=== PATIENT | female | born 1990 | race Caucasian/White ===

== ENCOUNTER 2017-04-15 23:03 | Emergency (ER) | payer BC ==
[~2017-04-15 23:03] MED LIST: ALBU90OI6 INH; ALPR.25 PO; ALPR.5 PO; AMOCLA875 PO; AMOX1XR PO; AMOX500 PO; ASCO1ER PO; Amoxicillin500 MG PO; Atarax10 MG GT; Ativan0.5 MG; CEPH500; CEPH500 PO; CETI10 PO; CODACE30 PO; DIPH50 PO; FISH1000 PO; FLUC150A PO; FLUT.05NI; HYDACE5 PO; HYDHCL25 PO; IBUP800; IBUP800 PO; LORA.5 PO; LORA1 PO; METO10 PO; MULVITMINE PO; MUPI2TO TOP; NASACORT AQ; Naprosyn500 MG PO; Norco 5-325 Ta1 EACH PO; OSEL75CA PO; OXYACE5T; PENVK500 PO; PRED20 PO; PREN-16 PO; PROCODE120 PO; Percocet 5-3251 EACH PO; RXCEPH500 PO; RXCODACET PO; RXLORA1 PO; RXPENVK250 PO; SERT25 PO; SERT50 PO; VITB100 PO
== END 2017-04-15 23:41 | disposition left against medical advice (07) ==
LOC: ER 23:03
DX: Z53.21 Procedure and treatment not carried out due to patient leaving prior to being seen by health care provider (principal)

== ENCOUNTER 2017-04-28 09:16 | Emergency (ER) | payer BC ==
[~2017-04-28] VITALS: Ht 162.6 cm; Wt 61.2 kg
[2017-04-28] MEDS ORDERED: AMOX875 PO (10:30)
== END 2017-04-28 10:50 | disposition home or self-care (01) ==
LOC: ER 09:16
DX: R10.9 Unspecified abdominal pain (principal); Z79.2 Long term (current) use of antibiotics
CPT/HCPCS: 81000; 99282

== ENCOUNTER → 2018-04-23 | Outpatient (CLI) | payer BC ==
[~2018-04-23] MED LIST changes: +AMOX875 PO
[2018-04-26 03:12] LABS: CHLAMYDIA TRACHOMATIS, NAA Negative (Negative); NEISSERIA GONORRHOEAE, NAA Negative (Negative)
== END | disposition home or self-care (01) ==
LOC: LAB EV 14:25 → LAB SHORT 14:25
PROVIDERS: Physician Assistant
DX: R10.2 Pelvic and perineal pain (principal)
CPT/HCPCS: 87070; 87205; 87491; 87591; G0145

== ENCOUNTER 2018-08-06 21:06 | Emergency (ER) | payer BC ==
[~2018-08-06] VITALS: Ht 162.6 cm; Wt 61.2 kg
[2018-08-06] MEDS ORDERED: IBUP600 PO (21:20)
[2018-08-06 21:55] LABS: BASOPHILS ABSOLUTE AUTO 0.04 K/mm3 (0.00-0.23); BASOPHILS PERCENT AUTO 0 % (0-2); EOSINOPHILS ABSOLUTE AUTO 0.15 K/mm3 (0.00-0.68); EOSINOPHILS PERCENT AUTO 1 % (0-6); Hematocrit 42.3 % (33.0-51.0); Hemoglobin 14.3 g/dL (11.5-16.0); IMMATURE GRAN ABSOLUTE AUTO 0.05 K/mm3 (0.00-0.10); IMMATURE GRAN PERCENT AUTO 0 % (0-1); LYMPHOCYTES ABSOLUTE AUTO 2.58 K/mm3 (0.84-5.20); LYMPHOCYTES PERCENT AUTO 21 % (21-46); MONOCYTES ABSOLUTE AUTO 1.16 K/mm3 (0.16-1.47); MONOCYTES PERCENT AUTO 10 % (4-13); Mean Corpuscular HGB 29.9 pg (26.0-34.0); Mean Corpuscular HGB Conc 33.8 g/dL (31.5-36.5); Mean Corpuscular Volume 88 fL (80-100); Mean Platelet Volume 9.8 fL (9.1-12.4); NEUTROPHILS ABSOLUTE AUTO 8.17 K/mm3 (1.96-9.15); NEUTROPHILS PERCENT AUTO 67 % (41-73); Platelet Count 296 K/mm3 (150-400); RDW Coefficient Variation 11.6 % (11.7-14.2); RDW Standard Deviation 37.3 fL (35.1-46.3); Red Blood Cell Count 4.79 M/mm3 (3.80-5.20); White Blood Cell Count 12.15 K/mm3 (4.00-11.30)
[2018-08-06 22:10] LABS: Anion Gap 7 mmol/L (6-16); Blood Urea Nitrogen 18 mg/dL (8-24); Bun/Creatinine Ratio 26.4 (12.0-20.0); CO2, Blood 25 mmol/L (21-32); Calcium, Blood 8.7 mg/dL (8.5-10.1); Chloride, Blood 110 mmol/L (98-108); Creatinine, Blood 0.68 mg/dL (0.40-1.00); Glomerular Filtration Rate >60 (60-); Glucose, Blood 69 mg/dL (70-99); Potassium, Blood 3.7 mmol/L (3.5-5.5); Sodium, Blood 142 mmol/L (136-145)
[2018-08-06] MEDS ORDERED: Miralax17 GM PO (22:50)
[2018-08-06] MEDS ORDERED: Colace100 MG PO (22:50)
== END 2018-08-06 23:30 | disposition home or self-care (01) ==
LOC: ER 21:06
PROVIDERS: Emergency Medicine
DX: K59.00 Constipation, unspecified (principal)
CPT/HCPCS: 74176; 80048; 85025; 99283-25

== ENCOUNTER 2018-10-07 12:36 | Emergency (ER) | payer BC ==
[~2018-10-07] VITALS: Ht 160 cm; Wt 59.0 kg
[~2018-10-07 12:36] MED LIST changes: +Colace100 MG PO; +IBUP600 PO; +Miralax17 GM PO
[2018-10-07 13:31] LABS: BASOPHILS ABSOLUTE AUTO 0.02 K/mm3 (0.00-0.23); BASOPHILS PERCENT AUTO 0 % (0-2); EOSINOPHILS ABSOLUTE AUTO 0.04 K/mm3 (0.00-0.68); EOSINOPHILS PERCENT AUTO 1 % (0-6); Hematocrit 43.6 % (33.0-51.0); Hemoglobin 15.2 g/dL (11.5-16.0); IMMATURE GRAN ABSOLUTE AUTO 0.02 K/mm3 (0.00-0.10); IMMATURE GRAN PERCENT AUTO 0 % (0-1); LYMPHOCYTES ABSOLUTE AUTO 1.88 K/mm3 (0.84-5.20); LYMPHOCYTES PERCENT AUTO 27 % (21-46); MONOCYTES ABSOLUTE AUTO 0.44 K/mm3 (0.16-1.47); MONOCYTES PERCENT AUTO 6 % (4-13); Mean Corpuscular HGB 30.8 pg (26.0-34.0); Mean Corpuscular HGB Conc 34.9 g/dL (31.5-36.5); Mean Corpuscular Volume 88 fL (80-100); Mean Platelet Volume 9.4 fL (9.1-12.4); NEUTROPHILS ABSOLUTE AUTO 4.69 K/mm3 (1.96-9.15); NEUTROPHILS PERCENT AUTO 66 % (41-73); Platelet Count 292 K/mm3 (150-400); RDW Coefficient Variation 11.8 % (11.7-14.2); Red Blood Cell Count 4.93 M/mm3 (3.80-5.20); White Blood Cell Count 7.09 K/mm3 (4.00-11.30)
[2018-10-07 13:55] LABS: Alanine Aminotransfer (ALT/SGP 23 U/L (12-78); Albumin, Blood 4.5 g/dL (3.4-5.0); Albumin/Globulin Ratio 1.2 (0.8-1.8); Alk Phos 82 U/L (50-136); Anion Gap 8 mmol/L (6-16); Aspartate Aminotrans (AST/SGOT 19 U/L (12-37); Bilirubin, Total 1.6 mg/dL (0.1-1.0); Blood Urea Nitrogen 12 mg/dL (8-24); Bun/Creatinine Ratio 21.5 (12.0-20.0); CO2, Blood 25 mmol/L (21-32); Calcium, Blood 9.2 mg/dL (8.5-10.1); Chloride, Blood 107 mmol/L (98-108); Creatinine, Blood 0.56 mg/dL (0.40-1.00); Globulin, Blood 3.7 g/dL (2.2-4.0); Glomerular Filtration Rate >60 (60-); Glucose, Blood 78 mg/dL (70-99); Potassium, Blood 3.8 mmol/L (3.5-5.5); Sodium, Blood 140 mmol/L (136-145); Total Protein, Blood 8.2 g/dL (6.4-8.2)
[2018-10-07 15:09] LABS: Source, Urine Clean Catch
[2018-10-07 15:11] LABS: Bilirubin, Urine Neg (Neg); Blood, Urine Neg (Neg); Glucose Qualitative, Urine Neg (Neg); Ketones, Urine Neg (Neg); Leukocyte Esterase, Urine Neg (Neg); Nitrite, Urine Neg (Neg); Protein, Urine Neg (Neg); Specific Gravity, Urine 1.005 (1.003-1.022); Urobilinogen, Urine NORM (Normal)
[2018-10-07 15:28] LABS: Appearance, Urine Clear (Clear); Color, Urine Yellow (P-Yellow)
== END 2018-10-07 15:50 | disposition home or self-care (01) ==
LOC: ER 12:36
PROVIDERS: Physician Assistant
DX: F41.9 Anxiety disorder, unspecified (principal); Z79.899 Other long term (current) drug therapy
CPT/HCPCS: 36415; 80053; 81003; 81025; 85025; 93005; 93010; 99283-25

== ENCOUNTER 2019-07-25 00:28 | Day surgery (SDC) | payer BC ==
[2019-07-25] MEDS ORDERED: CLON.5 PO (11:04)
[2019-07-25] MEDS ORDERED: PROP10 PO (11:05)
--- NOTE | 2019-07-25 12:22 | NUR ---
PT STATES SHE IS DONE WITH IVF AT THIS TIME AND WOULD LIKE TO STOP. PT C/O INCREASE PALPATATIONS WHICH GO ALONG WITH CURRENT DX, AND WOULD LIKE TO GO HOME. PT STATES SHE WOULD LIKE TO WALK OUT TO MEET S.O. BUT THIS RN ENCOURAGED TO ALLOW HER TO BE TAKEN OUT IN W/C, PT AGREES BUT DENIES NEEDING ANY HELP WHILE WAITING FOR .
== END 2019-07-25 12:12 | disposition home or self-care (01) ==
LOC: ATC 00:28
DX: G90.1 Familial dysautonomia [Riley-Day] (principal); I45.6 Pre-excitation syndrome; Q21.1 Atrial septal defect
CPT/HCPCS: 96360; 96361; J7030

== ENCOUNTER 2019-08-01 01:15 | Day surgery (SDC) | payer BC ==
[~2019-08-01 01:15] MED LIST changes: +CLON.5 PO; +PROP10 PO
== END 2019-08-01 15:54 | disposition home or self-care (01) ==
LOC: ATC 01:15
DX: G90.1 Familial dysautonomia [Riley-Day] (principal); I45.6 Pre-excitation syndrome; Q21.1 Atrial septal defect; R42 Dizziness and giddiness; Z79.899 Other long term (current) drug therapy
CPT/HCPCS: 96360; J7030

== ENCOUNTER 2019-08-15 01:50 | Day surgery (SDC) | payer BC ==
--- NOTE | 2019-08-15 11:45 | NUR ---
PT ONLY WANTS ONE LITER OF FLUID TODAY.
== END 2019-08-15 11:19 | disposition home or self-care (01) ==
LOC: ATC 01:50
DX: G90.1 Familial dysautonomia [Riley-Day] (principal); Q21.1 Atrial septal defect; I45.6 Pre-excitation syndrome; Z79.899 Other long term (current) drug therapy
CPT/HCPCS: 96360; J7030

== ENCOUNTER 2019-11-04 17:04 | Emergency (ER) | payer BC ==
[~2019-11-04] VITALS: Ht 162.6 cm; Wt 45.4 kg
[2019-11-04 18:07] LABS: BASOPHILS ABSOLUTE AUTO 0.03 K/mm3 (0.00-0.23); BASOPHILS PERCENT AUTO 0 % (0-2); EOSINOPHILS ABSOLUTE AUTO 0.08 K/mm3 (0.00-0.68); EOSINOPHILS PERCENT AUTO 1 % (0-6); Hematocrit 43.9 % (33.0-51.0); Hemoglobin 15.3 g/dL (11.5-16.0); IMMATURE GRAN ABSOLUTE AUTO 0.03 K/mm3 (0.00-0.10); IMMATURE GRAN PERCENT AUTO 0 % (0-1); LYMPHOCYTES ABSOLUTE AUTO 2.47 K/mm3 (0.84-5.20); LYMPHOCYTES PERCENT AUTO 30 % (21-46); MONOCYTES ABSOLUTE AUTO 0.66 K/mm3 (0.16-1.47); MONOCYTES PERCENT AUTO 8 % (4-13); Mean Corpuscular HGB 31.4 pg (26.0-34.0); Mean Corpuscular HGB Conc 34.9 g/dL (31.5-36.5); Mean Corpuscular Volume 90 fL (80-100); NEUTROPHILS ABSOLUTE AUTO 5.02 K/mm3 (1.96-9.15); NEUTROPHILS PERCENT AUTO 60 % (41-73); Platelet Count 290 K/mm3 (150-400); RDW Coefficient Variation 12.5 % (11.7-14.2); RDW Standard Deviation 41.8 fL (35.1-46.3); Red Blood Cell Count 4.87 M/mm3 (3.80-5.20); White Blood Cell Count 8.29 K/mm3 (4.00-11.30)
[2019-11-04 18:25] LABS: Alanine Aminotransfer (ALT/SGP 32 U/L (12-78); Albumin, Blood 4.1 g/dL (3.4-5.0); Albumin/Globulin Ratio 1.1 (0.8-1.8); Alk Phos 61 U/L (50-136); Anion Gap 8 mmol/L (6-16); Aspartate Aminotrans (AST/SGOT 25 U/L (12-37); Bilirubin, Total 1.6 mg/dL (0.1-1.0); Blood Urea Nitrogen 14 mg/dL (8-24); Bun/Creatinine Ratio 25.9 (12.0-20.0); CO2, Blood 23 mmol/L (21-32); Calcium, Blood 9.3 mg/dL (8.5-10.1); Chloride, Blood 108 mmol/L (98-108); Creatinine, Blood 0.54 mg/dL (0.40-1.00); Globulin, Blood 3.9 g/dL (2.2-4.0); Glomerular Filtration Rate >60 (60-); Glucose, Blood 83 mg/dL (70-99); Potassium, Blood 3.7 mmol/L (3.5-5.5); Sodium, Blood 139 mmol/L (136-145)
== END 2019-11-04 19:31 | disposition home or self-care (01) ==
LOC: ER 17:04
PROVIDERS: Physician Assistant
DX: I95.1 Orthostatic hypotension (principal); F41.9 Anxiety disorder, unspecified; Z79.899 Other long term (current) drug therapy
CPT/HCPCS: 36415; 80053; 85025; 93005; 93010; 96360; 99283-25; J7030

== ENCOUNTER 2020-02-06 21:07 | Emergency (ER) | payer BC ==
[~2020-02-06] VITALS: Ht 160 cm; Wt 45.4 kg
== END 2020-02-06 22:47 | disposition home or self-care (01) ==
LOC: ER 21:07
DX: S06.9X9A Unspecified intracranial injury with loss of consciousness of unspecified duration, initial encounter (principal); S00.03XA Contusion of scalp, initial encounter; S70.02XA Contusion of left hip, initial encounter; Z79.899 Other long term (current) drug therapy; Y04.8XXA Assault by other bodily force, initial encounter
CPT/HCPCS: 70450; 70486; 72125; 99284-25

== ENCOUNTER 2020-03-07 05:02 | Emergency (ER) | payer BC ==
[~2020-03-07] VITALS: Ht 162.6 cm; Wt 45.4 kg
[2020-03-07 05:58] LABS: BASOPHILS ABSOLUTE AUTO 0.05 K/mm3 (0.00-0.23); BASOPHILS PERCENT AUTO 1 % (0-2); EOSINOPHILS ABSOLUTE AUTO 0.13 K/mm3 (0.00-0.68); EOSINOPHILS PERCENT AUTO 2 % (0-6); Hematocrit 42.3 % (33.0-51.0); Hemoglobin 14.7 g/dL (11.5-16.0); IMMATURE GRAN ABSOLUTE AUTO 0.01 K/mm3 (0.00-0.10); IMMATURE GRAN PERCENT AUTO 0 % (0-1); LYMPHOCYTES ABSOLUTE AUTO 1.48 K/mm3 (0.84-5.20); LYMPHOCYTES PERCENT AUTO 27 % (21-46); MONOCYTES ABSOLUTE AUTO 0.61 K/mm3 (0.16-1.47); MONOCYTES PERCENT AUTO 11 % (4-13); Mean Corpuscular HGB Conc 34.8 g/dL (31.5-36.5); Mean Corpuscular Volume 95 fL (80-100); Mean Platelet Volume 8.6 fL (9.1-12.4); NEUTROPHILS ABSOLUTE AUTO 3.19 K/mm3 (1.96-9.15); NEUTROPHILS PERCENT AUTO 58 % (41-73); Platelet Count 255 K/mm3 (150-400); RDW Coefficient Variation 11.9 % (11.7-14.2); RDW Standard Deviation 41.3 fL (35.1-46.3); Red Blood Cell Count 4.46 M/mm3 (3.80-5.20); White Blood Cell Count 5.47 K/mm3 (4.00-11.30)
[2020-03-07 06:15] LABS: Alanine Aminotransfer (ALT/SGP 170 U/L (12-78); Albumin, Blood 3.8 g/dL (3.4-5.0); Alk Phos 95 U/L (50-136); Anion Gap 7 mmol/L (6-16); Aspartate Aminotrans (AST/SGOT 158 U/L (12-37); Blood Urea Nitrogen 9 mg/dL (8-24); Bun/Creatinine Ratio 14.6 (12.0-20.0); CO2, Blood 27 mmol/L (21-32); Calcium, Blood 8.7 mg/dL (8.5-10.1); Chloride, Blood 105 mmol/L (98-108); Creatinine, Blood 0.62 mg/dL (0.40-1.00); Ethanol (Alcohol), Blood, Med 289 mg/dL; Globulin, Blood 3.9 g/dL (2.2-4.0); Glomerular Filtration Rate >60 (60-); Glucose, Blood 103 mg/dL (70-99); Potassium, Blood 3.5 mmol/L (3.5-5.5); Sodium, Blood 139 mmol/L (136-145); Total Protein, Blood 7.7 g/dL (6.4-8.2)
[2020-06-13] MEDS ORDERED: TEMOVATE15 G1 TOP (14:03)
[2020-08-25] MEDS ORDERED: ONE-A-DAY PREN1 EAC1 PO (06:20)
[2020-08-25] MEDS ORDERED: FOLI1 PO (06:21)
[2020-08-25] MEDS ORDERED: NEURONTIN300 MG PO (06:21)
[2020-08-25] MEDS ORDERED: DIAZEPAM2 M2 PO (06:21)
[2020-08-25] MEDS ORDERED: VITAMIN B1 100 MG (06:21)
== END 2020-03-07 06:00 | disposition left against medical advice (07) ==
LOC: ER 05:02
PROVIDERS: Emergency Medicine
DX: R55 Syncope and collapse (principal); Z53.20 Procedure and treatment not carried out because of patient's decision for unspecified reasons
CPT/HCPCS: 36415; 80053; 82947; 85025; G0480

== ENCOUNTER 2020-04-15 20:28 | Emergency (ER) | payer OTHER ==
[~2020-04-15] VITALS: Ht 160 cm; Wt 46.3 kg
[2020-04-15] MEDS ORDERED: Bactrim Ds Tab1 EACH PO (20:58)
[2020-06-13] MEDS ORDERED: TEMOVATE15 G1 TOP (14:03)
[2020-08-25] MEDS ORDERED: ONE-A-DAY PREN1 EAC1 PO (06:20)
[2020-08-25] MEDS ORDERED: DIAZEPAM2 M2 PO (06:21)
[2020-08-25] MEDS ORDERED: FOLI1 PO (06:21)
[2020-08-25] MEDS ORDERED: NEURONTIN300 MG PO (06:21)
[2020-08-25] MEDS ORDERED: VITAMIN B1 100 MG (06:21)
== END 2020-04-15 21:16 | disposition home or self-care (01) ==
LOC: ER 20:28
DX: L02.413 Cutaneous abscess of right upper limb (principal); S41.112A Laceration without foreign body of left upper arm, initial encounter; Z79.899 Other long term (current) drug therapy; X58.XXXA Exposure to other specified factors, initial encounter
CPT/HCPCS: 99282; A9270

== ENCOUNTER 2020-05-01 05:28 | Emergency (ER) | payer OTHER ==
[~2020-05-01] VITALS: Ht 162.6 cm; Wt 46.3 kg
[~2020-05-01 05:28] MED LIST changes: +Bactrim Ds Tab1 EACH PO
[2020-05-01] MEDS ORDERED: AMOX500 PO (06:34)
[2020-06-13] MEDS ORDERED: TEMOVATE15 G1 TOP (14:03)
[2020-08-25] MEDS ORDERED: ONE-A-DAY PREN1 EAC1 PO (06:20)
[2020-08-25] MEDS ORDERED: VITAMIN B1 100 MG (06:21)
[2020-08-25] MEDS ORDERED: DIAZEPAM2 M2 PO (06:21)
[2020-08-25] MEDS ORDERED: FOLI1 PO (06:21)
[2020-08-25] MEDS ORDERED: NEURONTIN300 MG PO (06:21)
== END 2020-05-01 06:43 | disposition home or self-care (01) ==
LOC: ER 05:28
DX: J02.0 Streptococcal pharyngitis (principal); Z79.899 Other long term (current) drug therapy
CPT/HCPCS: 99282; A9270

== ENCOUNTER 2020-07-11 23:25 | Emergency (ER) | payer OTHER ==
[~2020-07-11] VITALS: Ht 160 cm; Wt 47.6 kg
[~2020-07-11 23:25] MED LIST changes: +TEMOVATE15 G1 TOP
[2020-07-12 00:22] LABS: BASOPHILS ABSOLUTE AUTO 0.08 K/mm3 (0.00-0.23); BASOPHILS PERCENT AUTO 1 % (0-2); EOSINOPHILS ABSOLUTE AUTO 0.24 K/mm3 (0.00-0.68); EOSINOPHILS PERCENT AUTO 3 % (0-6); Hemoglobin 14.3 g/dL (11.5-16.0); IMMATURE GRAN ABSOLUTE AUTO 0.03 K/mm3 (0.00-0.10); IMMATURE GRAN PERCENT AUTO 0 % (0-1); LYMPHOCYTES ABSOLUTE AUTO 2.27 K/mm3 (0.84-5.20); LYMPHOCYTES PERCENT AUTO 26 % (21-46); MONOCYTES ABSOLUTE AUTO 0.83 K/mm3 (0.16-1.47); MONOCYTES PERCENT AUTO 9 % (4-13); Mean Corpuscular HGB 35.8 pg (26.0-34.0); Mean Corpuscular HGB Conc 35.8 g/dL (31.5-36.5); Mean Corpuscular Volume 100 fL (80-100); Mean Platelet Volume 8.4 fL (9.1-12.4); NEUTROPHILS ABSOLUTE AUTO 5.35 K/mm3 (1.96-9.15); NEUTROPHILS PERCENT AUTO 61 % (41-73); Platelet Count 244 K/mm3 (150-400); RDW Coefficient Variation 12.7 % (11.7-14.2); RDW Standard Deviation 47.6 fL (35.1-46.3); Red Blood Cell Count 3.99 M/mm3 (3.80-5.20)
[2020-07-12 00:40] LABS: Alanine Aminotransfer (ALT/SGP 130 U/L (12-78); Albumin, Blood 4.1 g/dL (3.4-5.0); Albumin/Globulin Ratio 0.8 (0.8-1.8); Alk Phos 99 U/L (50-136); Anion Gap 7 mmol/L (6-16); Aspartate Aminotrans (AST/SGOT 115 U/L (12-37); Bilirubin, Total 0.5 mg/dL (0.1-1.0); Blood Urea Nitrogen 8 mg/dL (8-24); CO2, Blood 26 mmol/L (21-32); Calcium, Blood 8.7 mg/dL (8.5-10.1); Chloride, Blood 108 mmol/L (98-108); Creatinine, Blood 0.62 mg/dL (0.40-1.00); Globulin, Blood 4.9 g/dL (2.2-4.0); Glomerular Filtration Rate >60 (60-); Glucose, Blood 90 mg/dL (70-99); Magnesium, Blood 2.1 mg/dL (1.6-2.4); Potassium, Blood 3.9 mmol/L (3.5-5.5); Sodium, Blood 141 mmol/L (136-145)
[2020-08-25] MEDS ORDERED: ONE-A-DAY PREN1 EAC1 PO (06:20)
[2020-08-25] MEDS ORDERED: VITAMIN B1 100 MG (06:21)
[2020-08-25] MEDS ORDERED: FOLI1 PO (06:21)
[2020-08-25] MEDS ORDERED: DIAZEPAM2 M2 PO (06:21)
[2020-08-25] MEDS ORDERED: NEURONTIN300 MG PO (06:21)
== END 2020-07-12 01:39 | disposition home or self-care (01) ==
LOC: ER 23:25
PROVIDERS: Emergency Medicine
DX: I95.1 Orthostatic hypotension (principal); I49.8 Other specified cardiac arrhythmias; R74.01 Elevation of levels of liver transaminase levels; Z79.899 Other long term (current) drug therapy
CPT/HCPCS: 36415; 80053; 83735; 84703; 85025; 93005; 93010; 96360; 99285-25; J7120

== ENCOUNTER 2020-07-15 03:36 | Emergency (ER) | payer OTHER ==
[~2020-07-15] VITALS: Ht 162.6 cm; Wt 47.6 kg
[2020-07-15 04:55] LABS: Calcium, Ionized (POC) 1.17 mmol/L (1.10-1.46); Chloride (POC) 103 mmol/L (98-108); Creatinine (POC) 0.5 mg/dL (0.6-1.0); Glucose (ISTAT POC) 103 mg/dL (70-99); Hemoglobin (POC) 11.9 g/dL (12.0-16.0); Potassium (POC) 3.5 mmol/L (3.5-5.5); Sodium (POC) 142 mmol/L (135-148); Total CO2 (POC) 26 mmol/L (21-32)
[2020-08-25] MEDS ORDERED: ONE-A-DAY PREN1 EAC1 PO (06:20)
[2020-08-25] MEDS ORDERED: FOLI1 PO (06:21)
[2020-08-25] MEDS ORDERED: NEURONTIN300 MG PO (06:21)
[2020-08-25] MEDS ORDERED: VITAMIN B1 100 MG (06:21)
[2020-08-25] MEDS ORDERED: DIAZEPAM2 M2 PO (06:21)
== END 2020-07-15 05:50 | disposition home or self-care (01) ==
LOC: ER 03:36
PROVIDERS: Emergency Medicine
DX: R56.9 Unspecified convulsions (principal); Z79.899 Other long term (current) drug therapy
CPT/HCPCS: 80047; 85014; 99283

== ENCOUNTER 2020-07-24 13:14 | Emergency (ER) | payer OTHER ==
[~2020-07-24] VITALS: Ht 162.6 cm; Wt 47.6 kg
[2020-07-24] MEDS ORDERED: PROP10 (13:26)
[2020-07-24 13:50] LABS: Calcium, Ionized (POC) 1.28 mmol/L (1.10-1.46); Chloride (POC) 103 mmol/L (98-108); Creatinine (POC) 0.6 mg/dL (0.6-1.0); Glucose (ISTAT POC) 88 mg/dL (70-99); Hemoglobin (POC) 13.6 g/dL (12.0-16.0); Potassium (POC) 4.5 mmol/L (3.5-5.5); Sodium (POC) 140 mmol/L (135-148); Total CO2 (POC) 30 mmol/L (21-32)
[2020-08-25] MEDS ORDERED: ONE-A-DAY PREN1 EAC1 PO (06:20)
[2020-08-25] MEDS ORDERED: VITAMIN B1 100 MG (06:21)
[2020-08-25] MEDS ORDERED: DIAZEPAM2 M2 PO (06:21)
[2020-08-25] MEDS ORDERED: NEURONTIN300 MG PO (06:21)
[2020-08-25] MEDS ORDERED: FOLI1 PO (06:21)
== END 2020-07-24 13:57 | disposition home or self-care (01) ==
LOC: ER 13:14
PROVIDERS: Emergency Medicine
DX: I49.8 Other specified cardiac arrhythmias (principal); F17.290 Nicotine dependence, other tobacco product, uncomplicated
CPT/HCPCS: 80047; 85014; 99284

== ENCOUNTER 2020-08-01 11:58 | Emergency (ER) | payer OTHER ==
[~2020-08-01] VITALS: Ht 160 cm; Wt 49.9 kg
[~2020-08-01 11:58] MED LIST changes: +PROP10
[2020-08-25] MEDS ORDERED: ONE-A-DAY PREN1 EAC1 PO (06:20)
[2020-08-25] MEDS ORDERED: VITAMIN B1 100 MG (06:21)
[2020-08-25] MEDS ORDERED: DIAZEPAM2 M2 PO (06:21)
[2020-08-25] MEDS ORDERED: NEURONTIN300 MG PO (06:21)
[2020-08-25] MEDS ORDERED: FOLI1 PO (06:21)
== END 2020-08-01 12:20 | disposition left against medical advice (07) ==
LOC: ER 11:58
DX: F10.129 Alcohol abuse with intoxication, unspecified (principal); R55 Syncope and collapse; Z79.899 Other long term (current) drug therapy
CPT/HCPCS: 93005; 93010; 99284-25

== ENCOUNTER 2020-09-03 06:48 | Emergency (ER) | payer OTHER ==
[~2020-09-03] VITALS: Ht 162.6 cm; Wt 49.9 kg
[~2020-09-03 06:48] MED LIST changes: +DIAZEPAM2 M2 PO; +FOLI1 PO; +NEURONTIN300 MG PO; +ONE-A-DAY PREN1 EAC1 PO; +VITAMIN B1 100 MG
== END 2020-09-03 08:18 | disposition home or self-care (01) ==
LOC: ER 06:48
DX: R56.9 Unspecified convulsions (principal); Z79.899 Other long term (current) drug therapy
CPT/HCPCS: 96374; 99283-25; J3360

== ENCOUNTER 2020-09-28 18:43 | Emergency (ER) | payer OTHER ==
[~2020-09-28] VITALS: Ht 152.4 cm; Wt 48.1 kg
== END 2020-09-28 20:48 | disposition left against medical advice (07) ==
LOC: ER 18:43
DX: R47.89 Other speech disturbances (principal); Z53.20 Procedure and treatment not carried out because of patient's decision for unspecified reasons
CPT/HCPCS: 99282

== ENCOUNTER 2020-09-29 10:21 | Emergency (ER) | payer OTHER ==
[~2020-09-29] VITALS: Ht 160 cm; Wt 46.3 kg
[2020-09-29 10:57] LABS: BASOPHILS ABSOLUTE AUTO 0.03 K/mm3 (0.00-0.23); BASOPHILS PERCENT AUTO 1 % (0-2); EOSINOPHILS ABSOLUTE AUTO 0.09 K/mm3 (0.00-0.68); EOSINOPHILS PERCENT AUTO 3 % (0-6); Hematocrit 40.5 % (33.0-51.0); Hemoglobin 14.2 g/dL (11.5-16.0); IMMATURE GRAN ABSOLUTE AUTO 0.01 K/mm3 (0.00-0.10); IMMATURE GRAN PERCENT AUTO 0 % (0-1); LYMPHOCYTES ABSOLUTE AUTO 1.72 K/mm3 (0.84-5.20); LYMPHOCYTES PERCENT AUTO 47 % (21-46); MONOCYTES PERCENT AUTO 11 % (4-13); Mean Corpuscular HGB 34.8 pg (26.0-34.0); Mean Corpuscular HGB Conc 35.1 g/dL (31.5-36.5); Mean Corpuscular Volume 99 fL (80-100); Mean Platelet Volume 8.7 fL (9.1-12.4); NEUTROPHILS ABSOLUTE AUTO 1.39 K/mm3 (1.96-9.15); NEUTROPHILS PERCENT AUTO 38 % (41-73); Platelet Count 165 K/mm3 (150-400); RDW Coefficient Variation 12.6 % (11.7-14.2); RDW Standard Deviation 45.8 fL (35.1-46.3); Red Blood Cell Count 4.08 M/mm3 (3.80-5.20); White Blood Cell Count 3.64 K/mm3 (4.00-11.30)
[2020-09-29 11:14] LABS: Alanine Aminotransfer (ALT/SGP 170 U/L (12-78); Albumin, Blood 3.9 g/dL (3.4-5.0); Albumin/Globulin Ratio 0.8 (0.8-1.8); Alk Phos 113 U/L (50-136); Anion Gap 8 mmol/L (6-16); Aspartate Aminotrans (AST/SGOT 194 U/L (12-37); Bilirubin, Total 0.9 mg/dL (0.1-1.0); Blood Urea Nitrogen 6 mg/dL (8-24); Bun/Creatinine Ratio 10.3 (12.0-20.0); CO2, Blood 26 mmol/L (21-32); Calcium, Blood 9.3 mg/dL (8.5-10.1); Chloride, Blood 107 mmol/L (98-108); Creatinine, Blood 0.58 mg/dL (0.40-1.00); Globulin, Blood 4.6 g/dL (2.2-4.0); Glomerular Filtration Rate >60 (60-); Glucose, Blood 92 mg/dL (70-99); Potassium, Blood 3.9 mmol/L (3.5-5.5); Sodium, Blood 141 mmol/L (136-145); Total Protein, Blood 8.5 g/dL (6.4-8.2)
== END 2020-09-29 12:22 | disposition home or self-care (01) ==
LOC: ER 10:21
PROVIDERS: Physician Assistant
DX: S93.402A Sprain of unspecified ligament of left ankle, initial encounter (principal); F10.229 Alcohol dependence with intoxication, unspecified; R74.01 Elevation of levels of liver transaminase levels; K13.29 Other disturbances of oral epithelium, including tongue; X58.XXXA Exposure to other specified factors, initial encounter
CPT/HCPCS: 36415; 80053; 81025; 85025; 99284; A9270

== ENCOUNTER 2020-10-07 22:26 | Emergency (ER) | payer OTHER ==
[~2020-10-07] VITALS: Ht 160 cm; Wt 47.6 kg
[2020-10-07 23:23] LABS: BASOPHILS ABSOLUTE AUTO 0.03 K/mm3 (0.00-0.23); BASOPHILS PERCENT AUTO 1 % (0-2); EOSINOPHILS ABSOLUTE AUTO 0.18 K/mm3 (0.00-0.68); EOSINOPHILS PERCENT AUTO 4 % (0-6); Hematocrit 38.5 % (33.0-51.0); Hemoglobin 13.2 g/dL (11.5-16.0); IMMATURE GRAN ABSOLUTE AUTO 0.02 K/mm3 (0.00-0.10); IMMATURE GRAN PERCENT AUTO 1 % (0-1); LYMPHOCYTES ABSOLUTE AUTO 1.88 K/mm3 (0.84-5.20); LYMPHOCYTES PERCENT AUTO 42 % (21-46); MONOCYTES ABSOLUTE AUTO 0.56 K/mm3 (0.16-1.47); MONOCYTES PERCENT AUTO 13 % (4-13); Mean Corpuscular HGB 34.7 pg (26.0-34.0); Mean Corpuscular HGB Conc 34.3 g/dL (31.5-36.5); Mean Corpuscular Volume 101 fL (80-100); NEUTROPHILS ABSOLUTE AUTO 1.76 K/mm3 (1.96-9.15); NEUTROPHILS PERCENT AUTO 40 % (41-73); Platelet Count 137 K/mm3 (150-400); RDW Coefficient Variation 12.9 % (11.7-14.2); RDW Standard Deviation 48.6 fL (35.1-46.3); White Blood Cell Count 4.43 K/mm3 (4.00-11.30)
[2020-10-07 23:37] LABS: Alanine Aminotransfer (ALT/SGP 125 U/L (12-78); Albumin, Blood 3.9 g/dL (3.4-5.0); Albumin/Globulin Ratio 0.9 (0.8-1.8); Alk Phos 94 U/L (50-136); Anion Gap 7 mmol/L (6-16); Aspartate Aminotrans (AST/SGOT 139 U/L (12-37); Bilirubin, Total 0.5 mg/dL (0.1-1.0); Blood Urea Nitrogen 11 mg/dL (8-24); Bun/Creatinine Ratio 17.1 (12.0-20.0); CO2, Blood 28 mmol/L (21-32); Calcium, Blood 8.7 mg/dL (8.5-10.1); Chloride, Blood 106 mmol/L (98-108); Creatinine, Blood 0.65 mg/dL (0.40-1.00); Globulin, Blood 4.2 g/dL (2.2-4.0); Glomerular Filtration Rate >60 (60-); Glucose, Blood 73 mg/dL (70-99); Magnesium, Blood 1.8 mg/dL (1.6-2.4); Potassium, Blood 4.3 mmol/L (3.5-5.5); Sodium, Blood 141 mmol/L (136-145); Total Protein, Blood 8.1 g/dL (6.4-8.2)
== END 2020-10-08 01:39 | disposition home or self-care (01) ==
LOC: ER 22:26
PROVIDERS: Physician Assistant
DX: R07.81 Pleurodynia (principal); M25.572 Pain in left ankle and joints of left foot; R53.83 Other fatigue; F10.20 Alcohol dependence, uncomplicated; F17.290 Nicotine dependence, other tobacco product, uncomplicated; Z20.822 Contact with and (suspected) exposure to COVID-19; Z79.899 Other long term (current) drug therapy
CPT/HCPCS: 36415; 80053; 83735; 84703; 85025; 93005; 93010; 99282; 99284-25

== ENCOUNTER 2020-11-07 12:34 | Emergency (ER) | payer OTHER ==
[~2020-11-07] VITALS: Ht 160 cm; Wt 48.5 kg
[2020-11-07 13:38] LABS: BASOPHILS ABSOLUTE AUTO 0.03 K/mm3 (0.00-0.23); BASOPHILS PERCENT AUTO 1 % (0-2); EOSINOPHILS ABSOLUTE AUTO 0.18 K/mm3 (0.00-0.68); EOSINOPHILS PERCENT AUTO 4 % (0-6); Hematocrit 39.9 % (33.0-51.0); Hemoglobin 13.9 g/dL (11.5-16.0); IMMATURE GRAN ABSOLUTE AUTO 0.02 K/mm3 (0.00-0.10); IMMATURE GRAN PERCENT AUTO 1 % (0-1); LYMPHOCYTES ABSOLUTE AUTO 2.22 K/mm3 (0.84-5.20); LYMPHOCYTES PERCENT AUTO 55 % (21-46); MONOCYTES ABSOLUTE AUTO 0.32 K/mm3 (0.16-1.47); MONOCYTES PERCENT AUTO 8 % (4-13); Mean Corpuscular HGB 34.4 pg (26.0-34.0); Mean Corpuscular HGB Conc 34.8 g/dL (31.5-36.5); Mean Corpuscular Volume 99 fL (80-100); Mean Platelet Volume 8.8 fL (9.1-12.4); NEUTROPHILS ABSOLUTE AUTO 1.29 K/mm3 (1.96-9.15); NEUTROPHILS PERCENT AUTO 32 % (41-73); Platelet Count 130 K/mm3 (150-400); RDW Coefficient Variation 12.1 % (11.7-14.2); RDW Standard Deviation 44.1 fL (35.1-46.3); Red Blood Cell Count 4.04 M/mm3 (3.80-5.20); White Blood Cell Count 4.06 K/mm3 (4.00-11.30)
[2020-11-07 13:46] LABS: Alanine Aminotransfer (ALT/SGP 107 U/L (12-78); Albumin, Blood 3.3 g/dL (3.4-5.0); Albumin/Globulin Ratio 0.7 (0.8-1.8); Alk Phos 115 U/L (50-136); Anion Gap 4 mmol/L (6-16); Aspartate Aminotrans (AST/SGOT 139 U/L (12-37); Bilirubin, Total 0.3 mg/dL (0.1-1.0); Blood Urea Nitrogen 8 mg/dL (8-24); CO2, Blood 29 mmol/L (21-32); Calcium, Blood 9.1 mg/dL (8.5-10.1); Chloride, Blood 110 mmol/L (98-108); Creatinine, Blood 0.57 mg/dL (0.40-1.00); Globulin, Blood 4.6 g/dL (2.2-4.0); Glomerular Filtration Rate >60 (60-); Glucose, Blood 103 mg/dL (70-99); Potassium, Blood 4.1 mmol/L (3.5-5.5); Sodium, Blood 143 mmol/L (136-145); Total Protein, Blood 7.9 g/dL (6.4-8.2)
== END 2020-11-07 14:34 | disposition left against medical advice (07) ==
LOC: ER 12:34
PROVIDERS: Physician Assistant
DX: H53.8 Other visual disturbances (principal); R56.9 Unspecified convulsions; Z79.899 Other long term (current) drug therapy; Z53.21 Procedure and treatment not carried out due to patient leaving prior to being seen by health care provider
CPT/HCPCS: 36415; 70450; 80053; 84703; 85025; 93005; 93010; 99285-25

== ENCOUNTER 2020-11-29 11:58 | Emergency (ER) | payer OTHER ==
[~2020-11-29] VITALS: Ht 154.9 cm; Wt 54.4 kg
[2020-11-29] MEDS ORDERED: NEURONTIN300 MG PO (12:51)
[2020-11-29] MEDS ORDERED: PROP10 PO (12:51)
[2020-11-29] MEDS ORDERED: DIAZEPAM2 M2 PO (12:52)
[2020-11-29 12:58] LABS: BASOPHILS ABSOLUTE AUTO 0.03 K/mm3 (0.00-0.23); BASOPHILS PERCENT AUTO 1 % (0-2); EOSINOPHILS ABSOLUTE AUTO 0.12 K/mm3 (0.00-0.68); EOSINOPHILS PERCENT AUTO 2 % (0-6); Hematocrit 37.2 % (33.0-51.0); Hemoglobin 13.3 g/dL (11.5-16.0); IMMATURE GRAN ABSOLUTE AUTO 0.01 K/mm3 (0.00-0.10); IMMATURE GRAN PERCENT AUTO 0 % (0-1); LYMPHOCYTES ABSOLUTE AUTO 1.16 K/mm3 (0.84-5.20); LYMPHOCYTES PERCENT AUTO 20 % (21-46); MONOCYTES ABSOLUTE AUTO 0.69 K/mm3 (0.16-1.47); MONOCYTES PERCENT AUTO 12 % (4-13); Mean Corpuscular HGB 34.3 pg (26.0-34.0); Mean Corpuscular HGB Conc 35.8 g/dL (31.5-36.5); Mean Corpuscular Volume 96 fL (80-100); Mean Platelet Volume 9.4 fL (9.1-12.4); NEUTROPHILS ABSOLUTE AUTO 3.67 K/mm3 (1.96-9.15); NEUTROPHILS PERCENT AUTO 65 % (41-73); Platelet Count 118 K/mm3 (150-400); RDW Coefficient Variation 11.9 % (11.7-14.2); RDW Standard Deviation 41.5 fL (35.1-46.3); Red Blood Cell Count 3.88 M/mm3 (3.80-5.20); White Blood Cell Count 5.68 K/mm3 (4.00-11.30)
[2020-11-29 13:15] LABS: Alanine Aminotransfer (ALT/SGP 98 U/L (12-78); Albumin, Blood 3.3 g/dL (3.4-5.0); Albumin/Globulin Ratio 0.8 (0.8-1.8); Alk Phos 84 U/L (50-136); Anion Gap 9 mmol/L (6-16); Aspartate Aminotrans (AST/SGOT 141 U/L (12-37); Bilirubin, Total 2.2 mg/dL (0.1-1.0); Blood Urea Nitrogen 14 mg/dL (8-24); Bun/Creatinine Ratio 24.8 (12.0-20.0); CO2, Blood 25 mmol/L (21-32); Chloride, Blood 102 mmol/L (98-108); Creatinine, Blood 0.57 mg/dL (0.40-1.00); Globulin, Blood 4.4 g/dL (2.2-4.0); Glomerular Filtration Rate >60 (60-); Glucose, Blood 104 mg/dL (70-99); Magnesium, Blood 1.2 mg/dL (1.6-2.4); Phosphorus, Blood 1.9 mg/dL (2.5-4.9); Potassium, Blood 3.7 mmol/L (3.5-5.5); Sodium, Blood 136 mmol/L (136-145); Total Protein, Blood 7.7 g/dL (6.4-8.2); Troponin I <0.015 ng/mL (0.000-0.040)
[2020-11-29 13:43] LABS: Source, Urine Clean Catch
[2020-11-29 13:48] LABS: Appearance, Urine Hazy (Clear); Bilirubin, Urine Neg (Neg); Blood, Urine 2+ (Neg); Color, Urine Yellow (P-Yellow); Glucose Qualitative, Urine Neg (Neg); Ketones, Urine 1+ (Neg); Leukocyte Esterase, Urine 3+ (Neg); Nitrite, Urine Pos (Neg); Protein, Urine 2+ (Neg); Urobilinogen, Urine NORM (Normal)
[2020-11-29 14:14] LABS: Bacteria Many /hpf; Squamous Epithelial Cells Few /hpf (Few); Transitional Epithelial Cells Few /hpf (0-Rare); White Blood Cells, Urine TNTC /hpf (0-5)
[2020-11-29] MEDS ORDERED: Macrobid 100 M100 MG PO (18:27)
== END 2020-11-29 18:45 | disposition home or self-care (01) ==
LOC: ER 11:58
PROVIDERS: Family Medicine
DX: F10.239 Alcohol dependence with withdrawal, unspecified (principal); N39.0 Urinary tract infection, site not specified; F17.290 Nicotine dependence, other tobacco product, uncomplicated
CPT/HCPCS: 36415; 80053; 81001; 81025; 83690; 83735; 84100; 84484; 85025; 87077; 87086; 87186; 93005; 93010; 96365; 96366; 96375; 99285-25; A9270; J2060; J3475; J7030

== ENCOUNTER 2020-12-30 05:14 | Emergency (ER) | payer OTHER ==
[~2020-12-30] VITALS: Ht 162.6 cm; Wt 52.2 kg
[~2020-12-30 05:14] MED LIST changes: +Macrobid 100 M100 MG PO
[2020-12-30 07:02] LABS: BASOPHILS ABSOLUTE AUTO 0.04 K/mm3 (0.00-0.23); BASOPHILS PERCENT AUTO 0 % (0-2); EOSINOPHILS ABSOLUTE AUTO 0.09 K/mm3 (0.00-0.68); EOSINOPHILS PERCENT AUTO 1 % (0-6); Hemoglobin 15.2 g/dL (11.5-16.0); IMMATURE GRAN ABSOLUTE AUTO 0.04 K/mm3 (0.00-0.10); IMMATURE GRAN PERCENT AUTO 0 % (0-1); LYMPHOCYTES PERCENT AUTO 23 % (21-46); MONOCYTES ABSOLUTE AUTO 0.91 K/mm3 (0.16-1.47); MONOCYTES PERCENT AUTO 7 % (4-13); Mean Corpuscular HGB 33.3 pg (26.0-34.0); Mean Corpuscular HGB Conc 35.3 g/dL (31.5-36.5); Mean Corpuscular Volume 94 fL (80-100); Mean Platelet Volume 9.9 fL (9.1-12.4); NEUTROPHILS ABSOLUTE AUTO 8.78 K/mm3 (1.96-9.15); NEUTROPHILS PERCENT AUTO 68 % (41-73); Platelet Count 301 K/mm3 (150-400); RDW Coefficient Variation 11.7 % (11.7-14.2); RDW Standard Deviation 39.9 fL (35.1-46.3); Red Blood Cell Count 4.57 M/mm3 (3.80-5.20); White Blood Cell Count 12.86 K/mm3 (4.00-11.30)
[2020-12-30 07:23] LABS: Ethanol (Alcohol), Blood, Med <3 mg/dL; Free Thyroxine 0.84 ng/dL (0.70-1.60)
[2020-12-30 07:25] LABS: Alanine Aminotransfer (ALT/SGP 56 U/L (12-78); Albumin, Blood 4.2 g/dL (3.4-5.0); Albumin/Globulin Ratio 0.9 (0.8-1.8); Alk Phos 54 U/L (50-136); Anion Gap 8 mmol/L (6-16); Aspartate Aminotrans (AST/SGOT 78 U/L (12-37); Blood Urea Nitrogen 14 mg/dL (8-24); Bun/Creatinine Ratio 23.1 (12.0-20.0); CO2, Blood 21 mmol/L (21-32); Calcium, Blood 10.2 mg/dL (8.5-10.1); Chloride, Blood 105 mmol/L (98-108); Creatinine, Blood 0.61 mg/dL (0.40-1.00); Globulin, Blood 4.9 g/dL (2.2-4.0); Glomerular Filtration Rate >60 (60-); Glucose, Blood 100 mg/dL (70-99); Magnesium, Blood 1.7 mg/dL (1.6-2.4); Potassium, Blood 5.8 mmol/L (3.5-5.5); Sodium, Blood 134 mmol/L (136-145); Total Protein, Blood 9.1 g/dL (6.4-8.2)
[2020-12-30 08:00] LABS: Source, Urine Clean Catch
[2020-12-30 08:08] LABS: Appearance, Urine Clear (Clear); Bilirubin, Urine Neg (Neg); Blood, Urine Neg (Neg); Color, Urine Yellow (P-Yellow); Glucose Qualitative, Urine Neg (Neg); Ketones, Urine Neg (Neg); Leukocyte Esterase, Urine Neg (Neg); Nitrite, Urine Neg (Neg); Protein, Urine Neg (Neg); Specific Gravity, Urine 1.015 (1.003-1.022); Urobilinogen, Urine NORM (Normal)
== END 2020-12-30 07:12 | disposition left against medical advice (07) ==
LOC: ER 05:14
PROVIDERS: Emergency Medicine
DX: G40.909 Epilepsy, unspecified, not intractable, without status epilepticus (principal); R42 Dizziness and giddiness; F17.290 Nicotine dependence, other tobacco product, uncomplicated; Z79.899 Other long term (current) drug therapy
CPT/HCPCS: 36415; 80053; 81003; 81025; 83735; 84439; 84443; 85025; 99284; G0480; J7030

== ENCOUNTER 2021-01-02 12:59 | Emergency (ER) | payer OTHER ==
[~2021-01-02] VITALS: Ht 162.6 cm; Wt 52.2 kg
[2021-01-02 13:39] LABS: BASOPHILS ABSOLUTE AUTO 0.03 K/mm3 (0.00-0.23); BASOPHILS PERCENT AUTO 0 % (0-2); EOSINOPHILS ABSOLUTE AUTO 0.15 K/mm3 (0.00-0.68); EOSINOPHILS PERCENT AUTO 2 % (0-6); Hematocrit 38.2 % (33.0-51.0); Hemoglobin 13.4 g/dL (11.5-16.0); IMMATURE GRAN ABSOLUTE AUTO 0.02 K/mm3 (0.00-0.10); IMMATURE GRAN PERCENT AUTO 0 % (0-1); LYMPHOCYTES ABSOLUTE AUTO 2.26 K/mm3 (0.84-5.20); LYMPHOCYTES PERCENT AUTO 30 % (21-46); MONOCYTES ABSOLUTE AUTO 0.64 K/mm3 (0.16-1.47); MONOCYTES PERCENT AUTO 9 % (4-13); Mean Corpuscular HGB 33.7 pg (26.0-34.0); Mean Corpuscular HGB Conc 35.1 g/dL (31.5-36.5); Mean Corpuscular Volume 96 fL (80-100); Mean Platelet Volume 9.1 fL (9.1-12.4); NEUTROPHILS ABSOLUTE AUTO 4.35 K/mm3 (1.96-9.15); NEUTROPHILS PERCENT AUTO 58 % (41-73); Platelet Count 258 K/mm3 (150-400); RDW Coefficient Variation 11.5 % (11.7-14.2); RDW Standard Deviation 40.7 fL (35.1-46.3); Red Blood Cell Count 3.98 M/mm3 (3.80-5.20); White Blood Cell Count 7.45 K/mm3 (4.00-11.30)
[2021-01-02 14:04] LABS: Beta HCG, Quantitative, Serum 130 mIU/mL (0-3)
[2021-01-02 14:05] LABS: Alanine Aminotransfer (ALT/SGP 45 U/L (12-78); Albumin, Blood 3.7 g/dL (3.4-5.0); Albumin/Globulin Ratio 0.9 (0.8-1.8); Alk Phos 61 U/L (50-136); Anion Gap 8 mmol/L (6-16); Aspartate Aminotrans (AST/SGOT 31 U/L (12-37); Bilirubin, Total 0.6 mg/dL (0.1-1.0); Blood Urea Nitrogen 12 mg/dL (8-24); Bun/Creatinine Ratio 21.6 (12.0-20.0); CO2, Blood 23 mmol/L (21-32); Calcium, Blood 9.4 mg/dL (8.5-10.1); Chloride, Blood 107 mmol/L (98-108); Creatinine, Blood 0.56 mg/dL (0.40-1.00); Globulin, Blood 3.9 g/dL (2.2-4.0); Glomerular Filtration Rate >60 (60-); Glucose, Blood 96 mg/dL (70-99); Potassium, Blood 3.9 mmol/L (3.5-5.5); Sodium, Blood 138 mmol/L (136-145); Total Protein, Blood 7.6 g/dL (6.4-8.2)
== END 2021-01-02 14:46 | disposition home or self-care (01) ==
LOC: ER 12:59
PROVIDERS: Emergency Medicine
DX: Z32.01 Encounter for pregnancy test, result positive (principal); O99.331 Smoking (tobacco) complicating pregnancy, first trimester; F17.290 Nicotine dependence, other tobacco product, uncomplicated
CPT/HCPCS: 36415; 80053; 84702; 85025; 99284; J7030

== ENCOUNTER 2021-01-05 07:23 | Emergency (ER) | payer OTHER ==
[~2021-01-05] VITALS: Ht 165.1 cm; Wt 56.7 kg
[2021-01-05] MEDS ORDERED: PRENATAL TABLE1 EAC2 (07:56)
[2021-01-05] MEDS ORDERED: POTA10T (07:56)
[2021-01-05 08:12] LABS: BASOPHILS ABSOLUTE AUTO 0.03 K/mm3 (0.00-0.23); BASOPHILS PERCENT AUTO 0 % (0-2); EOSINOPHILS ABSOLUTE AUTO 0.25 K/mm3 (0.00-0.68); EOSINOPHILS PERCENT AUTO 2 % (0-6); Hematocrit 41.9 % (33.0-51.0); Hemoglobin 14.6 g/dL (11.5-16.0); IMMATURE GRAN ABSOLUTE AUTO 0.04 K/mm3 (0.00-0.10); IMMATURE GRAN PERCENT AUTO 0 % (0-1); LYMPHOCYTES ABSOLUTE AUTO 1.02 K/mm3 (0.84-5.20); LYMPHOCYTES PERCENT AUTO 9 % (21-46); MONOCYTES ABSOLUTE AUTO 0.63 K/mm3 (0.16-1.47); MONOCYTES PERCENT AUTO 5 % (4-13); Mean Corpuscular HGB 33.3 pg (26.0-34.0); Mean Corpuscular HGB Conc 34.8 g/dL (31.5-36.5); Mean Corpuscular Volume 96 fL (80-100); NEUTROPHILS ABSOLUTE AUTO 10.03 K/mm3 (1.96-9.15); NEUTROPHILS PERCENT AUTO 84 % (41-73); Platelet Count 283 K/mm3 (150-400); RDW Coefficient Variation 11.6 % (11.7-14.2); RDW Standard Deviation 40.9 fL (35.1-46.3); Red Blood Cell Count 4.38 M/mm3 (3.80-5.20)
[2021-01-05 08:19] LABS: Source, Urine Clean Catch
[2021-01-05 08:28] LABS: Alanine Aminotransfer (ALT/SGP 64 U/L (12-78); Albumin, Blood 4.1 g/dL (3.4-5.0); Alk Phos 50 U/L (50-136); Anion Gap 7 mmol/L (6-16); Aspartate Aminotrans (AST/SGOT 42 U/L (12-37); Bilirubin, Total 1.1 mg/dL (0.1-1.0); Blood Urea Nitrogen 13 mg/dL (8-24); Bun/Creatinine Ratio 20.1 (12.0-20.0); CO2, Blood 22 mmol/L (21-32); Calcium, Blood 8.8 mg/dL (8.5-10.1); Chloride, Blood 110 mmol/L (98-108); Creatinine, Blood 0.65 mg/dL (0.40-1.00); Globulin, Blood 4.1 g/dL (2.2-4.0); Glomerular Filtration Rate >60 (60-); Glucose, Blood 96 mg/dL (70-99); Potassium, Blood 4.3 mmol/L (3.5-5.5); Sodium, Blood 139 mmol/L (136-145); Total Protein, Blood 8.2 g/dL (6.4-8.2)
[2021-01-05 08:51] LABS: Bilirubin, Urine Neg (Neg); Blood, Urine Neg (Neg); Glucose Qualitative, Urine Neg (Neg); Ketones, Urine Neg (Neg); Leukocyte Esterase, Urine Neg (Neg); Nitrite, Urine Neg (Neg); Protein, Urine Neg (Neg); Urobilinogen, Urine NORM (Normal)
[2021-01-05 08:55] LABS: Appearance, Urine Clear (Clear); Color, Urine Yellow (P-Yellow)
[2021-01-05] MEDS ORDERED: ONDA4ODT MM (09:17)
== END 2021-01-05 09:27 | disposition home or self-care (01) ==
LOC: ER 07:23
PROVIDERS: Emergency Medicine
DX: O99.891 Other specified diseases and conditions complicating pregnancy (principal); R10.2 Pelvic and perineal pain; R10.31 Right lower quadrant pain; O99.341 Other mental disorders complicating pregnancy, first trimester; F41.9 Anxiety disorder, unspecified; Z88.8 Allergy status to other drugs, medicaments and biological substances; Z3A.01 Less than 8 weeks gestation of pregnancy
CPT/HCPCS: 76801; 76817; 80053; 81003; 84702; 85025; 86900; 86901; J2405

== ENCOUNTER 2021-01-15 21:58 | Emergency (ER) | payer OTHER ==
[~2021-01-15] VITALS: Ht 162.6 cm; Wt 53.5 kg
[~2021-01-15 21:58] MED LIST changes: +ONDA4ODT MM; +POTA10T; +PRENATAL TABLE1 EAC2
[2021-01-15 22:28] LABS: BASOPHILS ABSOLUTE AUTO 0.06 K/mm3 (0.00-0.23); BASOPHILS PERCENT AUTO 1 % (0-2); EOSINOPHILS ABSOLUTE AUTO 0.14 K/mm3 (0.00-0.68); EOSINOPHILS PERCENT AUTO 1 % (0-6); Hematocrit 35.7 % (33.0-51.0); Hemoglobin 12.5 g/dL (11.5-16.0); IMMATURE GRAN ABSOLUTE AUTO 0.07 K/mm3 (0.00-0.10); IMMATURE GRAN PERCENT AUTO 1 % (0-1); LYMPHOCYTES ABSOLUTE AUTO 2.92 K/mm3 (0.84-5.20); LYMPHOCYTES PERCENT AUTO 23 % (21-46); MONOCYTES PERCENT AUTO 10 % (4-13); Mean Corpuscular HGB 33.2 pg (26.0-34.0); Mean Corpuscular Volume 95 fL (80-100); Mean Platelet Volume 8.8 fL (9.1-12.4); NEUTROPHILS ABSOLUTE AUTO 8.16 K/mm3 (1.96-9.15); NEUTROPHILS PERCENT AUTO 65 % (41-73); Platelet Count 279 K/mm3 (150-400); RDW Coefficient Variation 11.7 % (11.7-14.2); RDW Standard Deviation 40.6 fL (35.1-46.3); Red Blood Cell Count 3.76 M/mm3 (3.80-5.20); White Blood Cell Count 12.55 K/mm3 (4.00-11.30)
[2021-01-15 22:47] LABS: Source, Urine Clean Catch
[2021-01-15 22:48] LABS: Appearance, Urine Clear (Clear); Bilirubin, Urine Neg (Neg); Blood, Urine Neg (Neg); Color, Urine Yellow (P-Yellow); Glucose Qualitative, Urine Neg (Neg); Ketones, Urine Neg (Neg); Leukocyte Esterase, Urine Neg (Neg); Nitrite, Urine Neg (Neg); Protein, Urine Neg (Neg); Urobilinogen, Urine NORM (Normal)
[2021-01-15] MEDS ORDERED: FOLI1 PO (23:13)
[2021-01-15] MEDS ORDERED: Vitamin B-1 PO (23:14)
[2021-01-15 23:24] LABS: Alanine Aminotransfer (ALT/SGP 84 U/L (12-78); Albumin, Blood 3.5 g/dL (3.4-5.0); Alk Phos 60 U/L (50-136); Anion Gap 8 mmol/L (6-16); Aspartate Aminotrans (AST/SGOT 38 U/L (12-37); Bilirubin, Total 0.5 mg/dL (0.1-1.0); Blood Urea Nitrogen 12 mg/dL (8-24); Bun/Creatinine Ratio 20.6 (12.0-20.0); CO2, Blood 24 mmol/L (21-32); Calcium, Blood 8.9 mg/dL (8.5-10.1); Chloride, Blood 107 mmol/L (98-108); Creatinine, Blood 0.58 mg/dL (0.40-1.00); Globulin, Blood 3.5 g/dL (2.2-4.0); Glomerular Filtration Rate >60 (60-); Glucose, Blood 85 mg/dL (70-99); Potassium, Blood 3.6 mmol/L (3.5-5.5); Sodium, Blood 139 mmol/L (136-145)
[2021-01-15 23:47] LABS: Beta HCG, Quantitative, Serum 29002 mIU/mL (0-3)
== END 2021-01-16 00:47 | disposition home or self-care (01) ==
LOC: ER 21:58
PROVIDERS: Emergency Medicine
DX: O26.891 Other specified pregnancy related conditions, first trimester (principal); R10.32 Left lower quadrant pain; O99.331 Smoking (tobacco) complicating pregnancy, first trimester; F17.290 Nicotine dependence, other tobacco product, uncomplicated; Z88.8 Allergy status to other drugs, medicaments and biological substances; Z79.899 Other long term (current) drug therapy; Z3A.01 Less than 8 weeks gestation of pregnancy
CPT/HCPCS: 36415; 76801; 80053; 81003; 84702; 85025; 99284-25

== ENCOUNTER 2021-01-18 05:44 | Day surgery (SDC) | payer OTHER ==
[~2021-01-18 05:44] MED LIST changes: +Vitamin B-1 PO
[2021-01-18] MEDS ORDERED: GABA300 PO (10:00)
--- NOTE | 2021-01-18 10:25 | NUR ---
PT STATES SHE ONLY WANTS 1 LITER OF NS IV.
== END 2021-01-18 11:02 | disposition home or self-care (01) ==
LOC: ATC 05:44
DX: I49.8 Other specified cardiac arrhythmias (principal); G90.1 Familial dysautonomia [Riley-Day]; D49.7 Neoplasm of unspecified behavior of endocrine glands and other parts of nervous system
CPT/HCPCS: 96360; J7030

== ENCOUNTER 2021-01-21 04:27 | Day surgery (SDC) | payer OTHER ==
[~2021-01-21 04:27] MED LIST changes: +GABA300 PO
--- NOTE | 2021-01-21 17:00 | NUR ---
WHILE PT WAS CHECKING IN FOR HER APPOINTMENT SHE HAD AN EPISODE OF WEAKNESS, APPEARTED TO FAINT AND ALSO APPEARED TO HAVE SOME SEIZURE TYPE ACTIVITY. PT'S FAMILY WITH HER REPORTS THAT SOMETIMES SHE HAS THESE SYMPTOMS AND THAT THEY ARE RELATED TO HER DX OF POTS. 1342: T = 97.2 - BP = 109/73 - RR = 16 - HR = 89, PT WITH SEIZURE TYPE ACTIVITY IN [facility] WAITING ROOM. 1345: PT AWAKE, STATES THAT SHE SOMETIMES HAS "THESE EPISODES" BROUGHT BACK TO ROOM 4 VIA WC AND PLACED ON STRETCHER TO LAY DOWN. FAMILY AT BEDSIDE. IV PLACED TO LAC AND FLUID BOLUS STARTED PER ORDERS. VS AT 1352: T=97.2, JT=143/73, RR=16, HR=89. PT REPORTS FEELING BETTER. 1450: FIRST LITER OF NS COMPLETED. PT AMB TO BR WITH STEADY GAIT. NO FURTHER SEIZURE TYPE ACTIVITY SINCE BEFORE 1345. 1525: IV BOLUS COMPLETED. PT AWAKE, AMB IN ROOM WITH FAMILY MEMBER. PT STATES SHE FEELS BETTER AND IS READY TO GO HOME.
== END 2021-01-21 15:25 | disposition home or self-care (01) ==
LOC: ATC 04:27
DX: I49.8 Other specified cardiac arrhythmias (principal); G90.1 Familial dysautonomia [Riley-Day]
CPT/HCPCS: J7030

== ENCOUNTER 2021-01-25 00:38 | Day surgery (SDC) | payer OTHER | END 2021-01-25 12:10 | disposition home or self-care (01) | LOC: ATC 00:38 | DX: I49.8 Other specified cardiac arrhythmias (principal); G90.1 Familial dysautonomia [Riley-Day] | CPT/HCPCS: J7030; J7040 ==

== ENCOUNTER 2021-01-27 09:34 | Emergency (ER) | payer OTHER ==
[~2021-01-27] VITALS: Ht 162.6 cm; Wt 54.4 kg
[2021-01-27 10:48] LABS: BASOPHILS ABSOLUTE AUTO 0.05 K/mm3 (0.00-0.23); BASOPHILS PERCENT AUTO 0 % (0-2); EOSINOPHILS ABSOLUTE AUTO 0.11 K/mm3 (0.00-0.68); EOSINOPHILS PERCENT AUTO 1 % (0-6); Hematocrit 38.7 % (33.0-51.0); Hemoglobin 13.6 g/dL (11.5-16.0); IMMATURE GRAN ABSOLUTE AUTO 0.08 K/mm3 (0.00-0.10); IMMATURE GRAN PERCENT AUTO 1 % (0-1); LYMPHOCYTES ABSOLUTE AUTO 2.59 K/mm3 (0.84-5.20); LYMPHOCYTES PERCENT AUTO 19 % (21-46); MONOCYTES ABSOLUTE AUTO 0.91 K/mm3 (0.16-1.47); MONOCYTES PERCENT AUTO 7 % (4-13); Mean Corpuscular HGB 32.9 pg (26.0-34.0); Mean Corpuscular HGB Conc 35.1 g/dL (31.5-36.5); Mean Corpuscular Volume 94 fL (80-100); Mean Platelet Volume 9.4 fL (9.1-12.4); NEUTROPHILS PERCENT AUTO 72 % (41-73); Platelet Count 295 K/mm3 (150-400); RDW Coefficient Variation 11.7 % (11.7-14.2); Red Blood Cell Count 4.13 M/mm3 (3.80-5.20); White Blood Cell Count 13.44 K/mm3 (4.00-11.30)
[2021-01-27 10:54] LABS: Source, Urine Clean Catch
[2021-01-27 10:58] LABS: Bilirubin, Urine Neg (Neg); Blood, Urine Neg (Neg); Glucose Qualitative, Urine Neg (Neg); Ketones, Urine Neg (Neg); Leukocyte Esterase, Urine Neg (Neg); Nitrite, Urine Neg (Neg); Protein, Urine Neg (Neg); Urobilinogen, Urine NORM (Normal)
[2021-01-27 11:16] LABS: Anion Gap 8 mmol/L (6-16); Blood Urea Nitrogen 13 mg/dL (8-24); Bun/Creatinine Ratio 27.1 (12.0-20.0); CO2, Blood 21 mmol/L (21-32); Chloride, Blood 107 mmol/L (98-108); Creatinine, Blood 0.48 mg/dL (0.40-1.00); Glomerular Filtration Rate >60 (60-); Glucose, Blood 85 mg/dL (70-99); Potassium, Blood 4.2 mmol/L (3.5-5.5); Sodium, Blood 136 mmol/L (136-145)
[2021-01-27 11:17] LABS: Appearance, Urine Clear (Clear); Color, Urine Yellow (P-Yellow)
[2021-01-27 11:41] LABS: Beta HCG, Quantitative, Serum 129647 mIU/mL (0-3)
[2021-01-28] MEDS ORDERED: Potassium Chlo20 ME1 PO (03:25)
[2021-01-28] MEDS ORDERED: ALPRAZOLAM0.5 M1 PO (03:26)
[2021-01-28] MEDS ORDERED: NEURONTIN300 MG PO (03:26)
[2021-01-28] MEDS ORDERED: [UNRECOGNIZED DRUG - OTHER] (03:28)
[2021-01-28] MEDS ORDERED: FOLI1 PO (03:28)
[2021-01-28] MEDS ORDERED: B-1100 M1 PO (03:28)
== END 2021-01-27 13:38 | disposition home or self-care (01) ==
LOC: ER 09:34
PROVIDERS: Physician Assistant
DX: O99.891 Other specified diseases and conditions complicating pregnancy (principal); R56.9 Unspecified convulsions; O99.411 Diseases of the circulatory system complicating pregnancy, first trimester; I49.8 Other specified cardiac arrhythmias; Z3A.08 8 weeks gestation of pregnancy
CPT/HCPCS: 80048; 81003; 84702; 85025; 99284

== ENCOUNTER 2021-01-28 03:02 | Emergency (ER) | payer OTHER ==
[~2021-01-28] VITALS: Ht 160 cm; Wt 52.2 kg
[2021-01-28] MEDS ORDERED: Potassium Chlo20 ME1 PO (03:25)
[2021-01-28] MEDS ORDERED: ALPRAZOLAM0.5 M1 PO (03:26)
[2021-01-28] MEDS ORDERED: NEURONTIN300 MG PO (03:26)
[2021-01-28] MEDS ORDERED: B-1100 M1 PO (03:28)
[2021-01-28] MEDS ORDERED: FOLI1 PO (03:28)
[2021-01-28] MEDS ORDERED: [UNRECOGNIZED DRUG - OTHER] (03:28)
[2021-01-28 04:03] LABS: BASOPHILS ABSOLUTE AUTO 0.03 K/mm3 (0.00-0.23); BASOPHILS PERCENT AUTO 0 % (0-2); EOSINOPHILS ABSOLUTE AUTO 0.13 K/mm3 (0.00-0.68); EOSINOPHILS PERCENT AUTO 1 % (0-6); Hematocrit 37.3 % (33.0-51.0); Hemoglobin 13.3 g/dL (11.5-16.0); IMMATURE GRAN ABSOLUTE AUTO 0.05 K/mm3 (0.00-0.10); IMMATURE GRAN PERCENT AUTO 0 % (0-1); LYMPHOCYTES ABSOLUTE AUTO 2.13 K/mm3 (0.84-5.20); LYMPHOCYTES PERCENT AUTO 19 % (21-46); MONOCYTES PERCENT AUTO 7 % (4-13); Mean Corpuscular HGB 32.8 pg (26.0-34.0); Mean Corpuscular HGB Conc 35.7 g/dL (31.5-36.5); Mean Corpuscular Volume 92 fL (80-100); Mean Platelet Volume 9.5 fL (9.1-12.4); NEUTROPHILS ABSOLUTE AUTO 8.15 K/mm3 (1.96-9.15); NEUTROPHILS PERCENT AUTO 72 % (41-73); Platelet Count 265 K/mm3 (150-400); RDW Coefficient Variation 11.9 % (11.7-14.2); RDW Standard Deviation 39.9 fL (35.1-46.3); Red Blood Cell Count 4.05 M/mm3 (3.80-5.20); White Blood Cell Count 11.29 K/mm3 (4.00-11.30)
[2021-01-28 05:21] LABS: Alanine Aminotransfer (ALT/SGP 41 U/L (12-78); Albumin, Blood 3.4 g/dL (3.4-5.0); Albumin/Globulin Ratio 0.9 (0.8-1.8); Alk Phos 48 U/L (50-136); Anion Gap 10 mmol/L (6-16); Aspartate Aminotrans (AST/SGOT 23 U/L (12-37); Bilirubin, Total 0.7 mg/dL (0.1-1.0); Blood Urea Nitrogen 10 mg/dL (8-24); Bun/Creatinine Ratio 19.8 (12.0-20.0); CO2, Blood 22 mmol/L (21-32); Chloride, Blood 107 mmol/L (98-108); Creatinine, Blood 0.51 mg/dL (0.40-1.00); Globulin, Blood 3.6 g/dL (2.2-4.0); Glomerular Filtration Rate >60 (60-); Glucose, Blood 83 mg/dL (70-99); Potassium, Blood 4.1 mmol/L (3.5-5.5); Sodium, Blood 139 mmol/L (136-145)
[2021-01-28 05:35] LABS: Beta HCG, Quantitative, Serum 133240 mIU/mL (0-3)
== END 2021-01-28 04:50 | disposition home or self-care (01) ==
LOC: ER 03:02
PROVIDERS: Emergency Medicine
DX: O20.9 Hemorrhage in early pregnancy, unspecified (principal); O99.341 Other mental disorders complicating pregnancy, first trimester; F41.9 Anxiety disorder, unspecified; Z88.8 Allergy status to other drugs, medicaments and biological substances; Z79.899 Other long term (current) drug therapy; Z3A.08 8 weeks gestation of pregnancy
CPT/HCPCS: 36415; 76801; 80053; 84702; 85025; 86900; 86901; 99284-25

== ENCOUNTER 2021-01-28 05:31 | Day surgery (SDC) | payer OTHER ==
[~2021-01-28 05:31] MED LIST changes: +ALPRAZOLAM0.5 M1 PO; +B-1100 M1 PO; +Potassium Chlo20 ME1 PO; +[UNRECOGNIZED DRUG - OTHER]
--- NOTE | 2021-01-28 10:04 | NUR ---
PT REQUESTED TO ONLY HAVE 1 LITER OF FLUID TODAY INSTEAD OF THE 1500 ML NS THAT WAS ORDERED. SHE REPORTS SHE WAS RECENTLY IN ER AND RECEIVED FLUID THERE WELL.
== END 2021-01-28 09:36 | disposition home or self-care (01) ==
LOC: ATC 05:31
DX: I49.8 Other specified cardiac arrhythmias (principal); G90.1 Familial dysautonomia [Riley-Day]
CPT/HCPCS: 96360; J7030

== ENCOUNTER 2021-01-31 03:32 | Emergency (ER) | payer OTHER ==
[~2021-01-31] VITALS: Ht 162.6 cm; Wt 54.4 kg
[2021-01-31] MEDS ORDERED: PROP10 PO (03:46)
== END 2021-01-31 05:52 | disposition home or self-care (01) ==
LOC: ER 03:32
DX: O99.891 Other specified diseases and conditions complicating pregnancy (principal); R51.9 Headache, unspecified; O99.341 Other mental disorders complicating pregnancy, first trimester; F41.9 Anxiety disorder, unspecified; Z3A.08 8 weeks gestation of pregnancy; Z88.8 Allergy status to other drugs, medicaments and biological substances; Z79.899 Other long term (current) drug therapy
CPT/HCPCS: 70450; 99284-25; A9270; J2765; J7030

== ENCOUNTER 2021-02-01 04:12 | Day surgery (SDC) | payer OTHER | END 2021-02-01 08:45 | disposition home or self-care (01) | LOC: ATC 04:12 | DX: I49.8 Other specified cardiac arrhythmias (principal); G90.1 Familial dysautonomia [Riley-Day]; Q21.1 Atrial septal defect | CPT/HCPCS: J7030 ==

== ENCOUNTER 2021-02-04 00:26 | Day surgery (SDC) | payer OTHER ==
[2021-02-06] MEDS ORDERED: ONDA4ODT MM (12:37)
[2021-02-06] MEDS ORDERED: Vitamin B-12100 MCG PO (12:37)
== END 2021-02-04 10:43 | disposition home or self-care (01) ==
LOC: ATC 00:26
DX: I49.8 Other specified cardiac arrhythmias (principal); G90.1 Familial dysautonomia [Riley-Day]
CPT/HCPCS: 96360; J7030; J7040

== ENCOUNTER 2021-02-08 04:54 | Day surgery (SDC) | payer OTHER ==
[~2021-02-08 04:54] MED LIST changes: +Vitamin B-12100 MCG PO
== END 2021-02-08 10:47 | disposition home or self-care (01) ==
LOC: ATC 04:54
DX: I49.8 Other specified cardiac arrhythmias (principal); G90.1 Familial dysautonomia [Riley-Day]
CPT/HCPCS: 96360; J7030

== ENCOUNTER 2021-02-13 16:03 | Emergency (ER) | payer OTHER ==
[2021-02-13] MEDS ORDERED: B-1100 M1 PO (21:44)
== END 2021-02-13 16:14 | disposition left against medical advice (07) ==
LOC: ER 16:03
DX: Z53.21 Procedure and treatment not carried out due to patient leaving prior to being seen by health care provider (principal)

== ENCOUNTER 2021-02-13 21:26 | Emergency (ER) | payer OTHER ==
[~2021-02-13] VITALS: Ht 162.6 cm; Wt 54.4 kg
[2021-02-13] MEDS ORDERED: B-1100 M1 PO (21:44)
[2021-02-13 23:16] LABS: BASOPHILS ABSOLUTE AUTO 0.04 K/mm3 (0.00-0.23); BASOPHILS PERCENT AUTO 0 % (0-2); EOSINOPHILS PERCENT AUTO 2 % (0-6); Hematocrit 35.3 % (33.0-51.0); Hemoglobin 12.9 g/dL (11.5-16.0); IMMATURE GRAN ABSOLUTE AUTO 0.08 K/mm3 (0.00-0.10); IMMATURE GRAN PERCENT AUTO 1 % (0-1); LYMPHOCYTES PERCENT AUTO 24 % (21-46); MONOCYTES ABSOLUTE AUTO 1.15 K/mm3 (0.16-1.47); MONOCYTES PERCENT AUTO 10 % (4-13); Mean Corpuscular HGB 33.2 pg (26.0-34.0); Mean Corpuscular HGB Conc 36.5 g/dL (31.5-36.5); Mean Corpuscular Volume 91 fL (80-100); Mean Platelet Volume 9.4 fL (9.1-12.4); NEUTROPHILS ABSOLUTE AUTO 7.67 K/mm3 (1.96-9.15); NEUTROPHILS PERCENT AUTO 64 % (41-73); Platelet Count 259 K/mm3 (150-400); RDW Coefficient Variation 11.9 % (11.7-14.2); RDW Standard Deviation 39.2 fL (35.1-46.3); Red Blood Cell Count 3.88 M/mm3 (3.80-5.20); White Blood Cell Count 12.04 K/mm3 (4.00-11.30)
[2021-02-13 23:41] LABS: Source, Urine Clean Catch
[2021-02-13 23:46] LABS: Bilirubin, Urine Neg (Neg); Blood, Urine Neg (Neg); Glucose Qualitative, Urine Neg (Neg); Ketones, Urine Neg (Neg); Leukocyte Esterase, Urine Neg (Neg); Nitrite, Urine Neg (Neg); Protein, Urine Neg (Neg); Specific Gravity, Urine 1.005 (1.003-1.022); Urobilinogen, Urine NORM (Normal)
[2021-02-13 23:47] LABS: Appearance, Urine Clear (Clear); Color, Urine Pale Yellow (P-Yellow)
[2021-02-13 23:51] LABS: Alanine Aminotransfer (ALT/SGP 27 U/L (12-78); Albumin, Blood 3.1 g/dL (3.4-5.0); Albumin/Globulin Ratio 0.8 (0.8-1.8); Alk Phos 49 U/L (50-136); Anion Gap 6 mmol/L (6-16); Aspartate Aminotrans (AST/SGOT 15 U/L (12-37); Bilirubin, Total 0.3 mg/dL (0.1-1.0); Blood Urea Nitrogen 12 mg/dL (8-24); Bun/Creatinine Ratio 23.2 (12.0-20.0); CO2, Blood 24 mmol/L (21-32); Chloride, Blood 108 mmol/L (98-108); Creatinine, Blood 0.52 mg/dL (0.40-1.00); Globulin, Blood 3.7 g/dL (2.2-4.0); Glomerular Filtration Rate >60 (60-); Glucose, Blood 88 mg/dL (70-99); Sodium, Blood 138 mmol/L (136-145); Total Protein, Blood 6.8 g/dL (6.4-8.2)
[2021-02-14 00:01] LABS: Beta HCG, Quantitative, Serum 101679 mIU/mL (0-3)
== END 2021-02-14 00:20 | disposition home or self-care (01) ==
LOC: ER 21:26
PROVIDERS: Physician Assistant
DX: O99.411 Diseases of the circulatory system complicating pregnancy, first trimester (principal); I49.8 Other specified cardiac arrhythmias; I95.1 Orthostatic hypotension; I25.10 Atherosclerotic heart disease of native coronary artery without angina pectoris; Z3A.11 11 weeks gestation of pregnancy; Z88.8 Allergy status to other drugs, medicaments and biological substances; Z79.899 Other long term (current) drug therapy; Z87.891 Personal history of nicotine dependence
CPT/HCPCS: 36415; 76801; 80053; 81003; 82947; 84702; 85025; 93005; 93010; 99284-25; J7030

== ENCOUNTER 2021-02-16 05:04 | Day surgery (SDC) | payer OTHER | END 2021-02-16 11:09 | disposition home or self-care (01) | LOC: ATC 05:04 | DX: I49.8 Other specified cardiac arrhythmias (principal) | CPT/HCPCS: 96360; 96361; J7030 ==

== ENCOUNTER 2021-02-20 04:51 | Day surgery (SDC) | payer OTHER ==
--- NOTE | 2021-02-18 09:55 | NUR ---
PT CANCELLED HER APPOINTMENT FOR TODAY.
--- NOTE | 2021-02-20 11:34 | NUR ---
PT DID NOT SHOW FOR HER APPOINTMENT IN THE [facility] TODAY.
== END 2021-02-20 22:55 | disposition home or self-care (01) ==
LOC: ATC 04:51
DX: I49.8 Other specified cardiac arrhythmias (principal); G90.1 Familial dysautonomia [Riley-Day]
CPT/HCPCS: J7030

== ENCOUNTER 2021-02-25 05:53 | Day surgery (SDC) | payer OTHER ==
--- NOTE | 2021-02-25 09:21 | NUR ---
PT REQUESTS ONLY ONE BAG OF FLUID TO BE GIVEN TODAY.
== END 2021-02-25 10:11 | disposition home or self-care (01) ==
LOC: ATC 05:53
DX: I49.8 Other specified cardiac arrhythmias (principal); G90.1 Familial dysautonomia [Riley-Day]
CPT/HCPCS: 96360; J7030

== ENCOUNTER → 2021-03-04 | Outpatient (CLI) | payer OTHER | END | disposition home or self-care (01) | LOC: LAB SHORT 14:06 | DX: R82.90 Unspecified abnormal findings in urine (principal) | CPT/HCPCS: 87077; 87086; 87186 ==

== ENCOUNTER 2021-03-09 13:50 | Emergency (ER) | payer OTHER ==
[~2021-03-09] VITALS: Ht 162.6 cm; Wt 54.4 kg
[2021-03-09] MEDS ORDERED: CLON2 PO (15:20)
== END 2021-03-09 15:30 | disposition home or self-care (01) ==
LOC: ER 13:50
DX: O99.891 Other specified diseases and conditions complicating pregnancy (principal); R10.30 Lower abdominal pain, unspecified; R56.9 Unspecified convulsions; Z3A.14 14 weeks gestation of pregnancy
CPT/HCPCS: 76816; 99284-25

== ENCOUNTER 2021-04-11 02:50 | Day surgery (SDC) | payer OTHER ==
[~2021-04-11 02:50] MED LIST changes: +CLON2 PO
== END 2021-04-11 15:03 | disposition home or self-care (01) ==
LOC: ATC 02:50
DX: I49.8 Other specified cardiac arrhythmias (principal)
CPT/HCPCS: J7030

== ENCOUNTER 2021-04-17 18:54 | Emergency (ER) | payer OTHER ==
[~2021-04-17] VITALS: Ht 162.6 cm; Wt 54.4 kg
[2021-04-17] MEDS ORDERED: [UNRECOGNIZED DRUG - OTHER] PO (19:12)
[2021-04-17] MEDS ORDERED: VITAMIN B1 100 MG PO (19:12)
[2021-04-17] MEDS ORDERED: ERGO400 PO (19:13)
[2021-04-17 19:35] LABS: BASOPHILS ABSOLUTE AUTO 0.03 K/mm3 (0.00-0.23); BASOPHILS PERCENT AUTO 0 % (0-2); EOSINOPHILS ABSOLUTE AUTO 0.14 K/mm3 (0.00-0.68); EOSINOPHILS PERCENT AUTO 1 % (0-6); Hematocrit 35.7 % (33.0-51.0); Hemoglobin 12.7 g/dL (11.5-16.0); IMMATURE GRAN ABSOLUTE AUTO 0.06 K/mm3 (0.00-0.10); IMMATURE GRAN PERCENT AUTO 1 % (0-1); LYMPHOCYTES ABSOLUTE AUTO 2.74 K/mm3 (0.84-5.20); LYMPHOCYTES PERCENT AUTO 27 % (21-46); MONOCYTES ABSOLUTE AUTO 0.89 K/mm3 (0.16-1.47); MONOCYTES PERCENT AUTO 9 % (4-13); Mean Corpuscular HGB 31.8 pg (26.0-34.0); Mean Corpuscular HGB Conc 35.6 g/dL (31.5-36.5); Mean Corpuscular Volume 89 fL (80-100); Mean Platelet Volume 9.9 fL (9.1-12.4); NEUTROPHILS ABSOLUTE AUTO 6.32 K/mm3 (1.96-9.15); NEUTROPHILS PERCENT AUTO 62 % (41-73); Platelet Count 242 K/mm3 (150-400); RDW Coefficient Variation 11.8 % (11.7-14.2); RDW Standard Deviation 38.3 fL (35.1-46.3); White Blood Cell Count 10.18 K/mm3 (4.00-11.30)
[2021-04-17 19:50] LABS: Alanine Aminotransfer (ALT/SGP 16 U/L (12-78); Albumin/Globulin Ratio 0.8 (0.8-1.8); Alk Phos 54 U/L (50-136); Anion Gap 6 mmol/L (6-16); Aspartate Aminotrans (AST/SGOT 13 U/L (12-37); Bilirubin, Total 0.4 mg/dL (0.1-1.0); Blood Urea Nitrogen 10 mg/dL (8-24); Bun/Creatinine Ratio 18.3 (12.0-20.0); CO2, Blood 18 mmol/L (21-32); Calcium, Blood 8.8 mg/dL (8.5-10.1); Chloride, Blood 109 mmol/L (98-108); Creatinine, Blood 0.55 mg/dL (0.40-1.00); Glomerular Filtration Rate >60 (60-); Glucose, Blood 95 mg/dL (70-99); Potassium, Blood 3.7 mmol/L (3.5-5.5); Sodium, Blood 133 mmol/L (136-145)
[2021-04-17 20:14] LABS: Source, Urine Clean Catch
[2021-04-17 20:17] LABS: Bilirubin, Urine Neg (Neg); Blood, Urine Neg (Neg); Glucose Qualitative, Urine Neg (Neg); Ketones, Urine Neg (Neg); Leukocyte Esterase, Urine 1+ (Neg); Nitrite, Urine Pos (Neg); Protein, Urine Neg (Neg); Urobilinogen, Urine NORM (Normal)
[2021-04-17 20:28] LABS: Appearance, Urine Hazy (Clear); Color, Urine Pale Yellow (P-Yellow)
[2021-04-17 20:29] LABS: Bacteria Many /hpf; Red Blood Cells, Urine 0-2 /hpf (0-2); Squamous Epithelial Cells Few /hpf (Few)
[2021-04-17] MEDS ORDERED: CEPH500 PO (21:19)
== END 2021-04-17 21:27 | disposition home or self-care (01) ==
LOC: ER 18:54
PROVIDERS: Emergency Medicine
DX: O99.352 Diseases of the nervous system complicating pregnancy, second trimester (principal); G40.909 Epilepsy, unspecified, not intractable, without status epilepticus; O99.891 Other specified diseases and conditions complicating pregnancy; R82.71 Bacteriuria; Z88.8 Allergy status to other drugs, medicaments and biological substances; Z79.899 Other long term (current) drug therapy
CPT/HCPCS: 80053; 81001; 82947; 85025; 87077; 87086; 87186; 93005; 93010; 99284-25; A9270

== ENCOUNTER 2021-04-28 14:56 | Emergency (ER) | payer OTHER ==
[~2021-04-28] VITALS: Ht 162.6 cm; Wt 54.4 kg
[~2021-04-28 14:56] MED LIST changes: +ERGO400 PO; +VITAMIN B1 100 MG PO; +[UNRECOGNIZED DRUG - OTHER] PO
[2021-04-28 15:57] LABS: Influenza B, PCR NEGATIVE (NEGATIVE); Resp Syncytial Virus, PCR NEGATIVE (NEGATIVE); SARS-Cov-2 (COVID-19) PCR, MMC NEGATIVE (NEGATIVE)
[2021-04-28 16:00] LABS: Influenza A, PCR POSITIVE (NEGATIVE)
== END 2021-04-28 16:14 | disposition home or self-care (01) ==
LOC: ER 14:56
PROVIDERS: Physician Assistant
DX: O99.512 Diseases of the respiratory system complicating pregnancy, second trimester (principal); J10.1 Influenza due to other identified influenza virus with other respiratory manifestations; Z3A.22 22 weeks gestation of pregnancy; Z20.822 Contact with and (suspected) exposure to COVID-19; Z79.899 Other long term (current) drug therapy
CPT/HCPCS: 0241U; 99283

== ENCOUNTER 2021-05-01 19:11 | Emergency (ER) | payer OTHER ==
[~2021-05-01] VITALS: Ht 162.6 cm; Wt 56.7 kg
[2021-05-01] MEDS ORDERED: AMOCLA875 PO (20:06)
[2021-05-01] MEDS ORDERED: Norco 5-325 Ta1 EACH PO (20:06)
== END 2021-05-01 20:30 | disposition home or self-care (01) ==
LOC: ER 19:11
DX: H66.91 Otitis media, unspecified, right ear (principal); Z79.899 Other long term (current) drug therapy
CPT/HCPCS: 99282; A9270

== ENCOUNTER 2021-05-11 20:05 | Emergency (ER) | payer OTHER ==
[~2021-05-11] VITALS: Ht 162.6 cm; Wt 61.2 kg
== END 2021-05-11 21:35 | disposition home or self-care (01) ==
LOC: ER 20:05
DX: O99.891 Other specified diseases and conditions complicating pregnancy (principal); R56.9 Unspecified convulsions; O99.412 Diseases of the circulatory system complicating pregnancy, second trimester; I49.8 Other specified cardiac arrhythmias; Z79.899 Other long term (current) drug therapy
CPT/HCPCS: 36415; 93005; 93010; 99284-25

== ENCOUNTER 2021-06-06 00:57 | Day surgery (SDC) | payer OTHER | END 2021-06-06 23:09 | disposition home or self-care (01) | LOC: ATC 00:57 | DX: I49.8 Other specified cardiac arrhythmias (principal); Z79.899 Other long term (current) drug therapy ==

== ENCOUNTER 2021-06-06 13:23 | Emergency (ER) | payer OTHER ==
[~2021-06-06] VITALS: Ht 162.6 cm; Wt 59.0 kg
[2021-06-06 14:08] LABS: BASOPHILS ABSOLUTE AUTO 0.02 K/mm3 (0.00-0.23); BASOPHILS PERCENT AUTO 0 % (0-2); EOSINOPHILS ABSOLUTE AUTO 0.11 K/mm3 (0.00-0.68); EOSINOPHILS PERCENT AUTO 1 % (0-6); Hematocrit 36.7 % (33.0-51.0); IMMATURE GRAN ABSOLUTE AUTO 0.07 K/mm3 (0.00-0.10); IMMATURE GRAN PERCENT AUTO 1 % (0-1); LYMPHOCYTES ABSOLUTE AUTO 1.84 K/mm3 (0.84-5.20); LYMPHOCYTES PERCENT AUTO 18 % (21-46); MONOCYTES PERCENT AUTO 6 % (4-13); Mean Corpuscular HGB 32.5 pg (26.0-34.0); Mean Corpuscular HGB Conc 35.4 g/dL (31.5-36.5); Mean Corpuscular Volume 92 fL (80-100); Mean Platelet Volume 9.5 fL (9.1-12.4); NEUTROPHILS ABSOLUTE AUTO 7.35 K/mm3 (1.96-9.15); NEUTROPHILS PERCENT AUTO 74 % (41-73); Platelet Count 229 K/mm3 (150-400); RDW Coefficient Variation 12.4 % (11.7-14.2); RDW Standard Deviation 41.2 fL (35.1-46.3); White Blood Cell Count 9.99 K/mm3 (4.00-11.30)
[2021-06-06 14:29] LABS: Alanine Aminotransfer (ALT/SGP 16 U/L (12-78); Albumin, Blood 2.7 g/dL (3.4-5.0); Albumin/Globulin Ratio 0.7 (0.8-1.8); Alk Phos 60 U/L (50-136); Anion Gap 8 mmol/L (6-16); Aspartate Aminotrans (AST/SGOT 15 U/L (12-37); Bilirubin, Total 0.5 mg/dL (0.1-1.0); Blood Urea Nitrogen 8 mg/dL (8-24); Bun/Creatinine Ratio 18.8 (12.0-20.0); CO2, Blood 20 mmol/L (21-32); Calcium, Blood 8.4 mg/dL (8.5-10.1); Chloride, Blood 110 mmol/L (98-108); Creatinine, Blood 0.43 mg/dL (0.40-1.00); Glomerular Filtration Rate >60 (60-); Glucose, Blood 157 mg/dL (70-99); Potassium, Blood 3.7 mmol/L (3.5-5.5); Sodium, Blood 138 mmol/L (136-145); Total Protein, Blood 6.7 g/dL (6.4-8.2)
[2021-06-06 15:25] LABS: Source, Urine Clean Catch
[2021-06-06 15:45] LABS: Appearance, Urine Clear (Clear); Bilirubin, Urine Neg (Neg); Blood, Urine Neg (Neg); Color, Urine Yellow (P-Yellow); Glucose Qualitative, Urine 1+ (Neg); Ketones, Urine Neg (Neg); Leukocyte Esterase, Urine Neg (Neg); Nitrite, Urine Neg (Neg); Protein, Urine Neg (Neg); Urobilinogen, Urine NORM (Normal); pH, Urine 6.5 (5.0-8.0)
== END 2021-06-06 16:19 | disposition home or self-care (01) ==
LOC: ER 13:23
PROVIDERS: Physician Assistant
DX: O99.891 Other specified diseases and conditions complicating pregnancy (principal); R55 Syncope and collapse; Z3A.26 26 weeks gestation of pregnancy; Z88.8 Allergy status to other drugs, medicaments and biological substances
CPT/HCPCS: 36415; 80053; 81003; 83690; 85025; J2405; J7030

== ENCOUNTER 2021-06-29 15:02 | Emergency (ER) | payer OTHER ==
[~2021-06-29] VITALS: Ht 162.6 cm; Wt 59.0 kg
[2021-06-29 16:25] LABS: Calcium, Ionized (POC) 1.12 mmol/L (1.10-1.46); Chloride (POC) 106 mmol/L (98-108); Creatinine (POC) 0.4 mg/dL (0.6-1.0); Glucose (ISTAT POC) 85 mg/dL (70-99); Hemoglobin (POC) 11.9 g/dL (12.0-16.0); Potassium (POC) 4.4 mmol/L (3.5-5.5); Sodium (POC) 136 mmol/L (135-148); Total CO2 (POC) 20 mmol/L (21-32)
== END 2021-06-29 17:00 | disposition home or self-care (01) ==
LOC: ER 15:02
PROVIDERS: Emergency Medicine
DX: O99.891 Other specified diseases and conditions complicating pregnancy (principal); R55 Syncope and collapse; Z3A.31 31 weeks gestation of pregnancy
CPT/HCPCS: 36415; 80047; 85014; 99284

== ENCOUNTER 2021-09-25 15:13 | Emergency (ER) | payer OTHER ==
[~2021-09-25] VITALS: Ht 162.6 cm; Wt 59.0 kg
[2021-09-25 15:45] LABS: Source, Urine Clean Catch
[2021-09-25 15:56] LABS: BASOPHILS ABSOLUTE AUTO 0.03 K/mm3 (0.00-0.23); BASOPHILS PERCENT AUTO 1 % (0-2); EOSINOPHILS ABSOLUTE AUTO 0.08 K/mm3 (0.00-0.68); EOSINOPHILS PERCENT AUTO 2 % (0-6); Hematocrit 41.1 % (33.0-51.0); Hemoglobin 14.1 g/dL (11.5-16.0); IMMATURE GRAN ABSOLUTE AUTO 0.02 K/mm3 (0.00-0.10); IMMATURE GRAN PERCENT AUTO 1 % (0-1); LYMPHOCYTES ABSOLUTE AUTO 1.42 K/mm3 (0.84-5.20); LYMPHOCYTES PERCENT AUTO 38 % (21-46); MONOCYTES ABSOLUTE AUTO 0.44 K/mm3 (0.16-1.47); MONOCYTES PERCENT AUTO 12 % (4-13); Mean Corpuscular HGB 31.1 pg (26.0-34.0); Mean Corpuscular HGB Conc 34.3 g/dL (31.5-36.5); Mean Corpuscular Volume 91 fL (80-100); Mean Platelet Volume 8.9 fL (9.1-12.4); NEUTROPHILS ABSOLUTE AUTO 1.75 K/mm3 (1.96-9.15); NEUTROPHILS PERCENT AUTO 47 % (41-73); Platelet Count 112 K/mm3 (150-400); RDW Coefficient Variation 12.8 % (11.7-14.2); RDW Standard Deviation 42.4 fL (35.1-46.3); Red Blood Cell Count 4.53 M/mm3 (3.80-5.20); White Blood Cell Count 3.74 K/mm3 (4.00-11.30)
[2021-09-25 16:08] LABS: Appearance, Urine Clear (Clear); Bilirubin, Urine Neg (Neg); Blood, Urine Neg (Neg); Glucose Qualitative, Urine Neg (Neg); Ketones, Urine 1+ (Neg); Leukocyte Esterase, Urine Neg (Neg); Nitrite, Urine Neg (Neg); Protein, Urine Neg (Neg); Urobilinogen, Urine NORM (Normal); pH, Urine 6.5 (5.0-8.0)
[2021-09-25 16:16] LABS: Ethanol (Alcohol), Blood, Med 99 mg/dL; Salicylate <1.7 mg/dL (2.8-20.0)
[2021-09-25 16:40] LABS: Alanine Aminotransfer (ALT/SGP 389 U/L (12-78); Albumin, Blood 3.8 g/dL (3.4-5.0); Alk Phos 125 U/L (50-136); Anion Gap 12 mmol/L (6-16); Aspartate Aminotrans (AST/SGOT 447 U/L (12-37); Bilirubin, Total 0.8 mg/dL (0.1-1.0); Blood Urea Nitrogen 6 mg/dL (8-24); Bun/Creatinine Ratio 11.7 (12.0-20.0); CO2, Blood 24 mmol/L (21-32); Calcium, Blood 9.5 mg/dL (8.5-10.1); Chloride, Blood 103 mmol/L (98-108); Creatinine, Blood 0.51 mg/dL (0.40-1.00); Globulin, Blood 3.9 g/dL (2.2-4.0); Glomerular Filtration Rate 127 (60-); Glucose, Blood 83 mg/dL (70-99); Potassium, Blood 4.3 mmol/L (3.5-5.5); Sodium, Blood 139 mmol/L (136-145); Total Protein, Blood 7.7 g/dL (6.4-8.2)
[2021-09-25 16:41] LABS: Acetaminophen, Random <2.0 ug/mL (10.0-30.0)
[2021-09-25 17:05] LABS: U Amphetamine Screen Not Detected; U Barbituate Screen Not Detected; U Benzodiazapine Screen Not Detected; U Buprenorphine Screen Not Detected; U Cannabinoids Screen Not Detected; U Cocaine Screen Not Detected; U Methadone Screen Not Detected; U Methamphetamine Screen Not Detected; U Opiates Screen Not Detected; U Oxycodone Screen Not Detected; U Phencyclidine Screen Not Detected; U Propoxyphene Screen Not Detected
[2021-09-25 17:10] LABS: Color, Urine Pale Yellow (P-Yellow)
== END 2021-09-25 18:49 | disposition left against medical advice (07) ==
LOC: ER 15:13
PROVIDERS: Physician Assistant
DX: R10.9 Unspecified abdominal pain (principal); Z79.899 Other long term (current) drug therapy; Z53.21 Procedure and treatment not carried out due to patient leaving prior to being seen by health care provider
CPT/HCPCS: 36415; 80053; 81003; 81025; 85025; 93005; 93010; G0480

== ENCOUNTER → 2021-09-29 | Outpatient (CLI) | payer OTHER ==
[2021-09-29 15:39] LABS: Albumin, Blood 3.7 g/dL (3.4-5.0); Bilirubin, Direct 0.4 mg/dL (0.0-0.3); Bilirubin, Indirect 0.6 mg/dL (0.1-0.7); Globulin, Blood 3.7 g/dL (2.2-4.0); Total Protein, Blood 7.4 g/dL (6.4-8.2)
[2021-09-30 10:09] LABS: HBSAG SCREEN Negative (Negative); HCV AB <0.1 (0.0-0.9); HEP A AB, IGM Negative (Negative); HEP B CORE AB, IGM Negative (Negative)
== END | disposition home or self-care (01) ==
LOC: LAB 11:43 → LAB SHORT 11:43
PROVIDERS: Hospitalist
DX: R74.01 Elevation of levels of liver transaminase levels (principal)
CPT/HCPCS: 80074; 80076; 85651

== ENCOUNTER 2021-11-04 10:27 | Inpatient (IN) | payer OTHER ==
[~2021-11-04] VITALS: Ht 162.6 cm; Wt 60.5 kg
[~2021-11-04 10:27] MED LIST changes: +Amoxicillin875 MG PO
[2021-11-04 11:20] LABS: BASOPHILS ABSOLUTE AUTO 0.04 K/mm3 (0.00-0.23); BASOPHILS PERCENT AUTO 0 % (0-2); EOSINOPHILS ABSOLUTE AUTO 0.02 K/mm3 (0.00-0.68); EOSINOPHILS PERCENT AUTO 0 % (0-6); Hematocrit 39.1 % (33.0-51.0); Hemoglobin 13.1 g/dL (11.5-16.0); IMMATURE GRAN ABSOLUTE AUTO 0.09 K/mm3 (0.00-0.10); IMMATURE GRAN PERCENT AUTO 1 % (0-1); LYMPHOCYTES ABSOLUTE AUTO 1.56 K/mm3 (0.84-5.20); LYMPHOCYTES PERCENT AUTO 14 % (21-46); MONOCYTES ABSOLUTE AUTO 1.04 K/mm3 (0.16-1.47); MONOCYTES PERCENT AUTO 9 % (4-13); Mean Corpuscular HGB Conc 33.5 g/dL (31.5-36.5); Mean Corpuscular Volume 96 fL (80-100); Mean Platelet Volume 9.4 fL (9.1-12.4); NEUTROPHILS ABSOLUTE AUTO 8.71 K/mm3 (1.96-9.15); NEUTROPHILS PERCENT AUTO 76 % (41-73); Platelet Count 155 K/mm3 (150-400); RDW Coefficient Variation 16.3 % (11.7-14.2); RDW Standard Deviation 56.7 fL (35.1-46.3); Red Blood Cell Count 4.09 M/mm3 (3.80-5.20); White Blood Cell Count 11.46 K/mm3 (4.00-11.30)
[2021-11-04 11:40] LABS: Ethanol (Alcohol), Blood, Med <3 mg/dL
[2021-11-04 12:02] LABS: Alanine Aminotransfer (ALT/SGP 320 U/L (12-78); Albumin, Blood 2.7 g/dL (3.4-5.0); Albumin/Globulin Ratio 0.6 (0.8-1.8); Alk Phos 187 U/L (50-136); Anion Gap 11 mmol/L (6-16); Aspartate Aminotrans (AST/SGOT 415 U/L (12-37); Bilirubin, Total 1.4 mg/dL (0.1-1.0); Blood Urea Nitrogen 8 mg/dL (8-24); Bun/Creatinine Ratio 18.3 (12.0-20.0); CO2, Blood 21 mmol/L (21-32); Calcium, Blood 8.6 mg/dL (8.5-10.1); Chloride, Blood 103 mmol/L (98-108); Creatinine, Blood 0.44 mg/dL (0.40-1.00); Globulin, Blood 4.6 g/dL (2.2-4.0); Glomerular Filtration Rate 132 (60-); Glucose, Blood 119 mg/dL (70-99); Potassium, Blood 4.1 mmol/L (3.5-5.5); Sodium, Blood 135 mmol/L (136-145); Total Protein, Blood 7.3 g/dL (6.4-8.2)
--- NOTE | 2021-11-04 14:55 | NUR ---
TRANSFER OF CARE RECEIVED REPORT FROM KEV IN THE ER ABOUT PT. PT ARRIVED SHORTLY AFTER. PT FAILRY SOMULENT AND IS UNABLE TO ANSWER MANY ADMISSION QUESTIONS INCLUDING MED REC AND MEDICAL HX. WILL RE-EVALUATE PT BECOMES MORE ALERT. MAINTAINING SPO2 >94 ON RA WITH NO SOB OR DYSPNEA NOTED. SUCTION AND EMESIS BAG SET UP IN ROOM. NS RUNNING @150ML/HR ORDERED. ABD PAIN PRESENT UPON PALPITATION, BUT NO NAUSEA OR VOMITING REPORTED AT THIS TIME. HR AND BP ARE STABLE. NO DIAPHORESIS, TREMORS, OR HALLUNICATIONS NOTED AT THIS TIME. PAIN MANAGED PER EMAR. VSS, NADN UPON ARRIVAL
--- NOTE | 2021-11-04 17:49 | NUR ---
UPDATE SPOKE WITH DR. WORLEY ABOUT PT'S INCREASING ABD PAIN AND NAUSEA. MD ORDERED AN INCREASE IN FREQUENCY OF PT'S DILAUDID WELL ADDED ON ZOFRAN FRO NAUSEA CONTROL. PT WILL BE GIVEN DOSE ORDERD PER EMAR FOR PAIN MANAGMENT
[2021-11-05] MEDS ORDERED: PROP10 PO (03:32)
[2021-11-05 04:34] LABS: BASOPHILS ABSOLUTE AUTO 0.04 K/mm3 (0.00-0.23); BASOPHILS PERCENT AUTO 0 % (0-2); EOSINOPHILS ABSOLUTE AUTO 0.01 K/mm3 (0.00-0.68); EOSINOPHILS PERCENT AUTO 0 % (0-6); Hematocrit 39.9 % (33.0-51.0); Hemoglobin 13.6 g/dL (11.5-16.0); IMMATURE GRAN ABSOLUTE AUTO 0.09 K/mm3 (0.00-0.10); IMMATURE GRAN PERCENT AUTO 1 % (0-1); LYMPHOCYTES ABSOLUTE AUTO 1.25 K/mm3 (0.84-5.20); LYMPHOCYTES PERCENT AUTO 12 % (21-46); MONOCYTES ABSOLUTE AUTO 1.14 K/mm3 (0.16-1.47); MONOCYTES PERCENT AUTO 11 % (4-13); Mean Corpuscular HGB 32.5 pg (26.0-34.0); Mean Corpuscular HGB Conc 34.1 g/dL (31.5-36.5); Mean Corpuscular Volume 95 fL (80-100); Mean Platelet Volume 9.3 fL (9.1-12.4); NEUTROPHILS PERCENT AUTO 75 % (41-73); Platelet Count 137 K/mm3 (150-400); RDW Coefficient Variation 16.1 % (11.7-14.2); RDW Standard Deviation 56.5 fL (35.1-46.3); Red Blood Cell Count 4.19 M/mm3 (3.80-5.20); White Blood Cell Count 10.13 K/mm3 (4.00-11.30)
[2021-11-05 05:07] LABS: Albumin, Blood 2.1 g/dL (3.4-5.0); Albumin/Globulin Ratio 0.6 (0.8-1.8); Bilirubin, Direct 0.5 mg/dL (0.0-0.3); Bilirubin, Indirect 0.7 mg/dL (0.1-0.7); Bilirubin, Total 1.2 mg/dL (0.1-1.0); Bun/Creatinine Ratio 15.9 (12.0-20.0); Calcium, Blood 7.1 mg/dL (8.5-10.1); Creatinine, Blood 0.44 mg/dL (0.40-1.00); Globulin, Blood 3.7 g/dL (2.2-4.0); Potassium, Blood 3.5 mmol/L (3.5-5.5); Total Protein, Blood 5.8 g/dL (6.4-8.2)
[2021-11-05 05:51] LABS: Phosphorus, Blood 0.9 mg/dL (2.5-4.9)
--- NOTE | 2021-11-05 07:27 | NUR ---
NOC SHIFT SUMMARY NOTIFIED DR. CORADO OVERNIGHT OF PT HR INCREASING TO 130S WHEN ASLEEP AND AFTER MEDICATING FOR CIWA SCORE. EKG OBTAINED AND SHOWED SINUS RHYTHM. ONE TIME ORDER OF IV METOPROLOL RECEIVED AND HR IMPROVED TO 110S. WHEN QUESTIONING PT - PT STATES SHE TAKES PROPANOLOL 20 MG BID. MED REQ UPDATED AND PER MD ORDER ALONG WITH SIPS WITH MEDS AND ICE CHIPS PRN. CIWAS 6-18 OVERNIGHT, ABD PAIN RADIATING TO BACK, PRNS GIVEN W/RELIEF. NAUSEA BUT NO VOMITING. OTHER VSS BESIDES HR MENTIONED ABOVE AND ON RA. MARÍA JOYCE NOTIFIED THIS AM OF PHOS 0.9 W/AM LABS AND ORDERS RECEIEVED. SEE EMAR FOR DETAILS WILL PASS ON TO DAY RN.
--- NOTE | 2021-11-05 19:05 | NUR ---
SHIFT SUMMARY PT IS A/Ox3-4, BUT IS ABLE TO FOLLOW DIRECTIONS GIVEN BY STAFF. PT HAS BEEN MORE ALERT T/O THE SHIFT AND HAS REPORTED PAIN BEING WELL MANAGED WITH THE Q2 DILAUDID. CWIAS HAVE ALSO IMPROVED WITH THE PT REPORTING NO HALLUCINATIONS OR DISORIENTATION. MINMAL NAUSEA W/O VOMITING T/O THE SHIT. HR HAS RANGED FROM THE 110-130'S WELL BP'S BEING A LITTLE SOFT. BOTH HAVE BEEN MANAGED WELL WITH MEDICATION ORDERED PER EMAR. NADN, VSS T/O THE SHIFT
[2021-11-06 04:17] LABS: BASOPHILS ABSOLUTE AUTO 0.04 K/mm3 (0.00-0.23); BASOPHILS PERCENT AUTO 0 % (0-2); EOSINOPHILS ABSOLUTE AUTO 0.07 K/mm3 (0.00-0.68); EOSINOPHILS PERCENT AUTO 1 % (0-6); Hematocrit 32.7 % (33.0-51.0); Hemoglobin 11.3 g/dL (11.5-16.0); IMMATURE GRAN ABSOLUTE AUTO 0.08 K/mm3 (0.00-0.10); IMMATURE GRAN PERCENT AUTO 1 % (0-1); LYMPHOCYTES ABSOLUTE AUTO 1.99 K/mm3 (0.84-5.20); LYMPHOCYTES PERCENT AUTO 20 % (21-46); MONOCYTES ABSOLUTE AUTO 1.45 K/mm3 (0.16-1.47); MONOCYTES PERCENT AUTO 14 % (4-13); Mean Corpuscular HGB 32.5 pg (26.0-34.0); Mean Corpuscular HGB Conc 34.6 g/dL (31.5-36.5); Mean Corpuscular Volume 94 fL (80-100); Mean Platelet Volume 9.1 fL (9.1-12.4); NEUTROPHILS ABSOLUTE AUTO 6.45 K/mm3 (1.96-9.15); NEUTROPHILS PERCENT AUTO 64 % (41-73); Platelet Count 106 K/mm3 (150-400); RDW Coefficient Variation 15.6 % (11.7-14.2); RDW Standard Deviation 53.7 fL (35.1-46.3); Red Blood Cell Count 3.48 M/mm3 (3.80-5.20); White Blood Cell Count 10.08 K/mm3 (4.00-11.30)
[2021-11-06 04:46] LABS: Albumin, Blood 1.9 g/dL (3.4-5.0); Albumin/Globulin Ratio 0.5 (0.8-1.8); Bilirubin, Total 1.1 mg/dL (0.1-1.0); Bun/Creatinine Ratio 8.1 (12.0-20.0); Calcium, Blood 6.4 mg/dL (8.5-10.1); Creatinine, Blood 0.37 mg/dL (0.40-1.00); Globulin, Blood 3.5 g/dL (2.2-4.0); Magnesium, Blood 1.5 mg/dL (1.6-2.4); Phosphorus, Blood 1.2 mg/dL (2.5-4.9); Total Protein, Blood 5.4 g/dL (6.4-8.2)
--- NOTE | 2021-11-06 04:57 | NUR ---
SHIFT SUMMARY PT IS A&OX4, CIWA SCORE 1-3 T/O THIS SHIFT, HR ST 110-120'S, C/O ABDOMINAL/MOUTH PAIN (MEDICATED PER EMAR), 1P SBA TO BSC, AND HAS BEEN HAVING INC BOWEL MOVEMENTS T/O THE SHIFT. SHE HAD A FEVER AT THE START OF THE SHIFT, BUT HAS GOTTEN BETTER T/O THE SHIFT. THE PT HAD SOME ICE CHIPS BUT HAS NOT HAD ANY FLUIDS THIS SHIFT. SHE IS "FEELING BETTER THAN YESTERDAY" AND WAS WANTING TO TRY SOLID FOOD. SHE WAS EDUCATED ON AN INCREASE OF IRRITATION FROM HER PANCREAS IF SHE EATS. SHE RECIEVED THE FEEDBACK WELL. PT IS ON ROOM AIR AND HAS NOT HAD C/O ANGINA OR SOB. SHE HAS NS @ 150, AND HAS BEEN RESTING INTERMITTENTLY T/O THE SHIFT. WILL CONTINUE TO MONITOR UNTIL REPORT IS GIVEN TO THE ONCOMING SHIFT RN. SEE NOTES FOR UPDATES.
--- NOTE | 2021-11-06 05:12 | NUR ---
ATTEMPTED TO CALL ABOUT AM LABS, I WAS NOT ABLE TO REACH THEM AT THIS TIME.
--- NOTE | 2021-11-06 05:37 | NUR ---
TALKED TO DR DANIEL ABOUT AM LABS, AND 30MM K PHOS IV AND 1GM MAG SULFATE IVPB OBTAINED.
--- NOTE | 2021-11-06 09:38 | NUR ---
AM NOTE: PATIENT ALERT AND ORIENTED X4. ANXIOUS AT TIMES. CIWA Q4 AND NEEDED. ABLE TO MOVE ALL EXTREMITIES, OVERALL WEAK. ONE PERSON ASSIST TO BSC. DENIES NUMBNESS/TINGLING. PERRLA. ON ROOM AIR SATING ABOVE 95%. DENIES SOB/COUGH. TELE SHOWING SINUS RHYTHM - SINUS TACH WITH HR 90-110'S. BP STABLE. DENIES CP/PRESSURE. NO SIGNS OF EDEMA. PPP. COMPLAINS OF ABDOMINAL PAIN TO LUQ, RADIATING TO BACK. INTERMIT NAUSEA. LOOSE STOOLS. MEDICATED PER EMAR WITH GOOD RELIEF. TOLERATING CL DIET. USING BSC TO VOID. PATIENT IS ON PERIOD. 9 WEEKS . CIWA 8 THIS AM, 1MG ATIVAN GIVEN WITH GOOD RELIEF. K PHOS INFUSING WITH NS AT THIS TIME. THIAMINE INFUSED. PATIENT SLEEPING AT THIS TIME. CALL LIGHT IN REACH. WILL CONTINUE TO MONITOR.
--- NOTE | 2021-11-06 19:41 | NUR ---
SHIFT SUMMARY: NO ACUTE CHANGES. PATIENT PAIN IMPROVING THROUGHOUT SHIFT. CIWA SCORES IMPROVING WELL. PATIENT STATES SHE OVERALL FEELS MUCH BETTER. K PHOS INFILTRATION TO RIGHT WRIST. PHARMACY CALLED AND INSTRUCTED TO SC INJECT AMPHADASE INTO SURROUNDING AREA. SEE EMAR ORDER FOR EXACT DIRECTIONS AND ADMINISTRATION. DR. KEENAN CALLED AND ORDER OBTAINED FOR AMPHADASE SC INJECTION. ICE THEN APPLIED TO WRIST. K PHOS COMPLETED IN RIGHT AC IV WITH NO ISSUES. ANTIBIOTICS INFUSED WELL. TOLERATING FULL LIQUID DIET. IN TO VISIT AND UPDATED. CALL LIGHT IN REACH. REPORTED OFF TO LEOBARDO.
[2021-11-07 04:51] LABS: Albumin, Blood 2.1 g/dL (3.4-5.0); Albumin/Globulin Ratio 0.6 (0.8-1.8); Bun/Creatinine Ratio 4.4 (12.0-20.0); Calcium, Blood 6.5 mg/dL (8.5-10.1); Creatinine, Blood 0.45 mg/dL (0.40-1.00); Globulin, Blood 3.5 g/dL (2.2-4.0); Phosphorus, Blood 1.6 mg/dL (2.5-4.9); Potassium, Blood 2.9 mmol/L (3.5-5.5); Total Protein, Blood 5.6 g/dL (6.4-8.2)
--- NOTE | 2021-11-07 06:29 | NUR ---
SHIFT SUMMARY PT IS A&0X4, CIWA BETWEEN 1-4 THIS SHIFT (Q4 HOUR CHECK), SBA TO THE BATHROOM FOR LINE MANAGMENT, AND ON A LIQUID DIET. PT HAS BEEN C/O THROAT AND ABDOMINAL PAIN AND WAS MEDICATED W/ TORDAL TWICE THIS SHIFT. PT HAD SOME NAUSEA AFTER DRINKING WATER W/ MEDICATIONS, BUT IT CLEARED UP SHORTLY AFTER. AFTER OBTAINING AM LABS, PT'S ELECTROLYTE ORDER WERE OUT OF NORMAL LIMITS. MD DANIEL CALLED AND ORDERS FOR ELECTROLYTE REPLACEMENTS WERE OBTAINED. THE PT REFUSED THE PASTORA AND MAG, BUT ACCEPTED THE K+. THE CHARGE NURSE, MG Lester RN, AND I EDUCATED THE PT ON THE RISKS, BUT SHE WAS PERSISTENT. THE PT HAD ME PULL ONE OF HER IV'S DUE TO WANTING TO BE ABLE TO UTILIZE ONE OF HER ARMS FULLY. SHE IS WAITING FOR THE DR TO ROUND BEFORE DETERMINING IF SHE WANTS TO LEAVE. CARE HANDED OFF TO MG Rojas RN.
--- NOTE | 2021-11-07 07:45 | NUR ---
AM NOTE Pt states she wants to leave AMA due to important appointment, notified Dr Chamberlain. Pt request iv fluids be stopped, edcudated pt on electrolyte imbalances and risks of not replacing, pt continues to request iv kphos be stopped and iv removed. Dr Chamberlain to place order for po medication. Pt alert, oriented X4, answers questions appropriately and able to make needs known. When asked if pt was having pain, pt states "Just my heart hurts" then quickly denied physical pain, stating "Not in the physical sense." Pt denies pain, chest pain/pressure, nasuea, dizziness, headache, numb/tingling and itching this am. Ls clear t/o, breathing even and unlabored. Tele sinus - sinus tach 70-100's, bp stable. Abd soft, tender, hyperactiver bt noted. Afebrile, other vss. No other acute changes noted. Will continue to monitor. Awaiting Dr Chamberlain at bedside.
--- NOTE | 2021-11-07 08:02 | NUR ---
Dr Chamberlain at bedside. Medicated per emar. Pt continues to state she wants to leave ama, edcuated with ama paper cardiac risk, seizures, pancreatic pain and worsening infection. Pt signed, piv removed.
--- NOTE | 2021-11-07 08:56 | NUR ---
Pt witnessed leaving by another staff member, when room checked pt and belongings gone. Pt left room at approx 831.
[2021-11-10] MEDS ORDERED: ONDA4ODT MM (15:10)
== END 2021-11-07 08:33 | disposition left against medical advice (07) | DRG 439 ==
LOC: ER 10:27 → PCU 13:26
PROVIDERS: Physician Assistant; ADMIT Internal Medicine
PROC: HZ2ZZZZ Detoxification Services for Substance Abuse Treatment (ICD-10-PCS; principal; 2021-11-04)
DX: K85.20 Alcohol induced acute pancreatitis without necrosis or infection (principal); F10.239 Alcohol dependence with withdrawal, unspecified; I49.8 Other specified cardiac arrhythmias; R56.9 Unspecified convulsions; E87.6 Hypokalemia; E83.51 Hypocalcemia; E83.39 Other disorders of phosphorus metabolism; K70.11 Alcoholic hepatitis with ascites; K05.219 Aggressive periodontitis, localized, unspecified severity; E86.0 Dehydration; F41.9 Anxiety disorder, unspecified; I45.6 Pre-excitation syndrome; Z87.891 Personal history of nicotine dependence; Z98.890 Other specified postprocedural states; Z98.891 History of uterine scar from previous surgery; Z88.8 Allergy status to other drugs, medicaments and biological substances; Z79.899 Other long term (current) drug therapy; Y90.0 Blood alcohol level of less than 20 mg/100 ml
CPT/HCPCS: 36415; 71045; 74150; 80048; 80053; 80076; 83690; 83735; 84100; 84703; 85025; 93005; 93010; 94762; 96361; 96374; 96375; 99285-25; A9270; G0480; J0295; J1170; J1650; J1885; J2060; J2405; J3010; J3411; J3470; J3475; J7030; J7050; J7060

== ENCOUNTER → 2021-11-21 | Outpatient (CLI) | payer OTHER ==
[2021-11-21 18:41] LABS: Albumin, Blood 3.5 g/dL (3.4-5.0); Bilirubin, Total 0.8 mg/dL (0.1-1.0); Bun/Creatinine Ratio 9.4 (12.0-20.0); Calcium, Blood 9.4 mg/dL (8.5-10.1); Creatinine, Blood 0.64 mg/dL (0.40-1.00); Globulin, Blood 3.6 g/dL (2.2-4.0); Potassium, Blood 3.9 mmol/L (3.5-5.5); Total Protein, Blood 7.1 g/dL (6.4-8.2)
== END | disposition home or self-care (01) ==
LOC: LAB 17:23 → LAB SHORT 17:23
PROVIDERS: Hospitalist
DX: K85.20 Alcohol induced acute pancreatitis without necrosis or infection (principal)
CPT/HCPCS: 80053; 83690

== ENCOUNTER → 2021-12-29 | Outpatient (CLI) | payer OTHER ==
[2021-12-29 16:05] LABS: Albumin, Blood 3.8 g/dL (3.4-5.0); Albumin/Globulin Ratio 1.1 (0.8-1.8); Bilirubin, Total 0.9 mg/dL (0.1-1.0); Bun/Creatinine Ratio 26.6 (12.0-20.0); Calcium, Blood 9.1 mg/dL (8.5-10.1); Creatinine, Blood 0.49 mg/dL (0.40-1.00); Globulin, Blood 3.5 g/dL (2.2-4.0); Potassium, Blood 4.1 mmol/L (3.5-5.5); Total Protein, Blood 7.3 g/dL (6.4-8.2)
== END | disposition home or self-care (01) ==
LOC: LAB SHORT 11:17 → LAB 11:17
PROVIDERS: Hospitalist
DX: R74.01 Elevation of levels of liver transaminase levels (principal)
CPT/HCPCS: 80053

== ENCOUNTER 2022-01-08 09:49 | Emergency (ER) | payer OTHER | END 2022-01-08 11:40 | disposition left against medical advice (07) | DX: F10.929 Alcohol use, unspecified with intoxication, unspecified (principal); Z79.899 Other long term (current) drug therapy; Z87.891 Personal history of nicotine dependence; Z88.8 Allergy status to other drugs, medicaments and biological substances; Y90.8 Blood alcohol level of 240 mg/100 ml or more ==

== ENCOUNTER 2022-02-17 11:01 | Emergency (ER) | payer OTHER ==
[~2022-02-17] VITALS: Ht 170.2 cm; Wt 61.2 kg
== END 2022-02-17 12:49 | disposition left against medical advice (07) ==
LOC: ER 11:01
DX: S89.91XA Unspecified injury of right lower leg, initial encounter (principal); Z79.899 Other long term (current) drug therapy; W01.0XXA Fall on same level from slipping, tripping and stumbling without subsequent striking against object, initial encounter; Z53.21 Procedure and treatment not carried out due to patient leaving prior to being seen by health care provider
CPT/HCPCS: 99281

== ENCOUNTER → 2022-03-24 | Emergency (ER) | payer OTHER ==
[~2022-03-24] VITALS: Ht 157.5 cm; Wt 47.6 kg
[~2022-03-24] MED LIST changes: +IBU800 M1 PO; +IRON18 MG PO; +Neurontin 300300 MG PO; +Vitamin B-150 MG PO
[2022-03-24 14:19] LABS: BASOPHILS ABSOLUTE AUTO 0.02 K/mm3 (0.00-0.23); BASOPHILS PERCENT AUTO 1 % (0-2); EOSINOPHILS ABSOLUTE AUTO 0.04 K/mm3 (0.00-0.68); EOSINOPHILS PERCENT AUTO 1 % (0-6); Hemoglobin 12.9 g/dL (11.5-16.0); MONOCYTES ABSOLUTE AUTO 0.41 K/mm3 (0.16-1.47)
[2022-03-24 14:28] LABS: Hematocrit 36.2 % (33.0-51.0); IMMATURE GRAN ABSOLUTE AUTO 0.05 K/mm3 (0.00-0.10); IMMATURE GRAN PERCENT AUTO 1 % (0-1); LYMPHOCYTES ABSOLUTE AUTO 1.22 K/mm3 (0.84-5.20); LYMPHOCYTES PERCENT AUTO 32 % (21-46); MONOCYTES PERCENT AUTO 11 % (4-13); Mean Corpuscular HGB 32.9 pg (26.0-34.0); Mean Corpuscular HGB Conc 35.6 g/dL (31.5-36.5); Mean Corpuscular Volume 92 fL (80-100); Mean Platelet Volume 10.6 fL (9.1-12.4); NEUTROPHILS ABSOLUTE AUTO 2.12 K/mm3 (1.96-9.15); NEUTROPHILS PERCENT AUTO 55 % (41-73); Platelet Count 149 K/mm3 (150-400); RDW Coefficient Variation 12.4 % (11.7-14.2); RDW Standard Deviation 41.5 fL (35.1-46.3); Red Blood Cell Count 3.92 M/mm3 (3.80-5.20); White Blood Cell Count 3.86 K/mm3 (4.00-11.30)
[2022-03-24 14:33] LABS: Albumin, Blood 3.4 g/dL (3.4-5.0); Albumin/Globulin Ratio 0.8 (0.8-1.8); Bilirubin, Total 1.1 mg/dL (0.1-1.0); Bun/Creatinine Ratio 10.4 (12.0-20.0); Calcium, Blood 10.1 mg/dL (8.5-10.1); Creatinine, Blood 0.48 mg/dL (0.40-1.00); Globulin, Blood 4.3 g/dL (2.2-4.0); Potassium, Blood 4.3 mmol/L (3.5-5.5); Total Protein, Blood 7.7 g/dL (6.4-8.2)
== END ==
LOC: ER 12:31
PROVIDERS: Student in an Organized Health Care Education/Training Program
DX: G40.909 Epilepsy, unspecified, not intractable, without status epilepticus (principal); F10.10 Alcohol abuse, uncomplicated; D72.819 Decreased white blood cell count, unspecified; D69.6 Thrombocytopenia, unspecified; Z88.8 Allergy status to other drugs, medicaments and biological substances; Z79.899 Other long term (current) drug therapy; Z87.891 Personal history of nicotine dependence
CPT/HCPCS: 80053; 85025; A9270

== ENCOUNTER 2022-04-06 01:05 | Day surgery (SDC) | payer OTHER ==
[2022-04-06] MEDS ORDERED: GABA400 PO (15:52)
[2022-04-06] MEDS ORDERED: Inderal40 MG PO (15:52)
== END 2022-04-06 15:52 | disposition home or self-care (01) ==
LOC: ATC 01:05
DX: I49.8 Other specified cardiac arrhythmias (principal); G90.1 Familial dysautonomia [Riley-Day]
CPT/HCPCS: 96360; J7030; J7040

== ENCOUNTER 2022-04-12 00:26 | Day surgery (SDC) | payer OTHER ==
[~2022-04-12 00:26] MED LIST changes: +GABA400 PO; +Inderal40 MG PO
== END 2022-04-12 14:33 | disposition home or self-care (01) ==
LOC: ATC 00:26
DX: G90.A Postural orthostatic tachycardia syndrome [POTS] (principal); F10.20 Alcohol dependence, uncomplicated; G40.909 Epilepsy, unspecified, not intractable, without status epilepticus
CPT/HCPCS: 96360; J7030

== ENCOUNTER 2022-04-16 00:28 | Day surgery (SDC) | payer OTHER | END 2022-04-16 09:50 | disposition home or self-care (01) | LOC: ATC 00:28 | DX: G90.A Postural orthostatic tachycardia syndrome [POTS] (principal); Z79.899 Other long term (current) drug therapy; Z88.8 Allergy status to other drugs, medicaments and biological substances | CPT/HCPCS: 96360; J7030 ==

== ENCOUNTER 2022-04-18 00:14 | Day surgery (SDC) | payer OTHER | END 2022-04-18 09:20 | disposition home or self-care (01) | LOC: ATC 00:14 | DX: G90.A Postural orthostatic tachycardia syndrome [POTS] (principal); E87.6 Hypokalemia; F41.9 Anxiety disorder, unspecified; G40.909 Epilepsy, unspecified, not intractable, without status epilepticus; F10.20 Alcohol dependence, uncomplicated | CPT/HCPCS: 96360; J7030 ==

== ENCOUNTER 2022-04-25 01:03 | Day surgery (SDC) | payer OTHER ==
[~2022-04-25 01:03] MED LIST changes: +CLON1 PO; +Inderal 20 mg T20 MG PO
== END 2022-04-25 09:04 | disposition home or self-care (01) ==
LOC: ATC 01:03
DX: G90.A Postural orthostatic tachycardia syndrome [POTS] (principal); G40.909 Epilepsy, unspecified, not intractable, without status epilepticus; Z79.899 Other long term (current) drug therapy; Z88.8 Allergy status to other drugs, medicaments and biological substances
CPT/HCPCS: 96360; J7030

== ENCOUNTER 2022-05-02 01:52 | Day surgery (SDC) | payer OTHER | END 2022-05-02 09:56 | disposition home or self-care (01) | LOC: ATC 01:52 | DX: G90.A Postural orthostatic tachycardia syndrome [POTS] (principal); F10.20 Alcohol dependence, uncomplicated; G40.909 Epilepsy, unspecified, not intractable, without status epilepticus; Z79.899 Other long term (current) drug therapy | CPT/HCPCS: 96360; J7030 ==

== ENCOUNTER 2022-05-06 00:58 | Day surgery (SDC) | payer OTHER ==
--- NOTE | 2022-05-06 08:34 | NUR ---
PT DECLINES 500ML OF NS. PT REQUESTS JUST 1000ML OF THE ORDERED DOSE TO BE ADMINISTERED OVER 1 HOUR
== END 2022-05-06 09:30 | disposition home or self-care (01) ==
LOC: ATC 00:58
DX: G90.A Postural orthostatic tachycardia syndrome [POTS] (principal); F10.20 Alcohol dependence, uncomplicated; G40.909 Epilepsy, unspecified, not intractable, without status epilepticus; Z79.899 Other long term (current) drug therapy; Z88.8 Allergy status to other drugs, medicaments and biological substances
CPT/HCPCS: 96360; J7030; J7050

== ENCOUNTER 2022-05-13 00:20 | Day surgery (SDC) | payer OTHER | END 2022-05-13 09:10 | disposition home or self-care (01) | LOC: ATC 00:20 | DX: G90.A Postural orthostatic tachycardia syndrome [POTS] (principal); F10.20 Alcohol dependence, uncomplicated; G40.909 Epilepsy, unspecified, not intractable, without status epilepticus | CPT/HCPCS: 96360; J7030 ==

== ENCOUNTER 2022-05-23 02:35 | Day surgery (SDC) | payer OTHER | END 2022-05-23 09:48 | disposition home or self-care (01) | LOC: ATC 02:35 | DX: G90.A Postural orthostatic tachycardia syndrome [POTS] (principal); G40.909 Epilepsy, unspecified, not intractable, without status epilepticus; F10.20 Alcohol dependence, uncomplicated | CPT/HCPCS: J7030 ==

== ENCOUNTER 2022-05-27 00:11 | Day surgery (SDC) | payer OTHER ==
[2022-05-27 08:50] VITALS: BP 103/73
== END 2022-05-27 09:50 | disposition home or self-care (01) ==
LOC: ATC 00:11
DX: G90.A Postural orthostatic tachycardia syndrome [POTS] (principal); G40.909 Epilepsy, unspecified, not intractable, without status epilepticus; F10.20 Alcohol dependence, uncomplicated
CPT/HCPCS: 96360; J7030

== ENCOUNTER 2022-06-03 00:41 | Day surgery (SDC) | payer OTHER ==
[2022-06-03 08:55] VITALS: BP 114/61
== END 2022-06-03 09:52 | disposition home or self-care (01) ==
LOC: ATC 00:41
DX: I49.8 Other specified cardiac arrhythmias (principal)
CPT/HCPCS: 96360; J7030

== ENCOUNTER 2022-06-06 02:06 | Day surgery (SDC) | payer OTHER ==
[2022-06-06 08:41] VITALS: BP 107/72
== END 2022-06-06 09:32 | disposition home or self-care (01) ==
LOC: ATC 02:06
DX: I49.8 Other specified cardiac arrhythmias (principal)
CPT/HCPCS: 96360; J7030

== ENCOUNTER 2022-06-10 00:10 | Day surgery (SDC) | payer OTHER ==
[2022-06-10 08:58] VITALS: BP 95/67
== END 2022-06-10 09:50 | disposition home or self-care (01) ==
LOC: ATC 00:10
DX: I49.8 Other specified cardiac arrhythmias (principal); F10.20 Alcohol dependence, uncomplicated; G40.909 Epilepsy, unspecified, not intractable, without status epilepticus; Z88.8 Allergy status to other drugs, medicaments and biological substances; Z79.899 Other long term (current) drug therapy
CPT/HCPCS: 96360; J7030

== ENCOUNTER 2022-06-17 00:09 | Day surgery (SDC) | payer OTHER ==
[2022-06-17 09:07] VITALS: BP 102/64
--- NOTE | 2022-06-17 09:26 | NUR ---
PT REPORTS SHE WOULD ONLY LIKE TO RECEIVE 1000 ML IVF TODAY.
== END 2022-06-17 10:14 | disposition home or self-care (01) ==
LOC: ATC 00:09
DX: I49.8 Other specified cardiac arrhythmias (principal); F10.20 Alcohol dependence, uncomplicated; G40.909 Epilepsy, unspecified, not intractable, without status epilepticus; Z88.8 Allergy status to other drugs, medicaments and biological substances; Z79.899 Other long term (current) drug therapy
CPT/HCPCS: 96360; J7030

== ENCOUNTER 2022-06-20 01:40 | Day surgery (SDC) | payer OTHER ==
[2022-06-20 09:00] VITALS: BP 104/76
== END 2022-06-20 10:02 | disposition home or self-care (01) ==
LOC: ATC 01:40
DX: I49.8 Other specified cardiac arrhythmias (principal)
CPT/HCPCS: 96360; J7030; J7040

== ENCOUNTER 2022-07-04 01:38 | Day surgery (SDC) | payer OTHER ==
[2022-07-04 09:04] VITALS: BP 108/75
[2022-07-04 09:20] VITALS: BP 122/95
--- NOTE | 2022-07-04 10:01 | NUR ---
PT COLLAPSED AND BEGAN SEIZING WHILE IN LINE AT THE [facility]. IVF WERE INFUSING AT THE TIME, PTS WAS WITH HER. FBP RN ASSISTED PT. [employer] ATTENDANT WAS CALLED. PT WAS SUPPORTED FOR SAFETY. VS NOTED. PT WAS LIFTED TO [facility] USING BEDSHEET AND 4 PERSON LIFT. PT WAS TAKEN TO ER BY [employer] ATTENDANT RN. REPORT WAS CALLED TO OMAYRA IN ER.
== END 2022-07-04 08:34 | disposition home or self-care (01) ==
LOC: ATC 01:38
DX: G90.A Postural orthostatic tachycardia syndrome [POTS] (principal); F10.20 Alcohol dependence, uncomplicated; G40.909 Epilepsy, unspecified, not intractable, without status epilepticus; R55 Syncope and collapse; Z79.899 Other long term (current) drug therapy; Z88.8 Allergy status to other drugs, medicaments and biological substances; Z87.891 Personal history of nicotine dependence
CPT/HCPCS: 80048; 84703; 96360; 99284-25; J7030

== ENCOUNTER 2022-07-04 09:39 | Emergency (ER) | payer OTHER ==
[~2022-07-04] VITALS: Ht 160 cm; Wt 56.7 kg
[2022-07-04 10:31] LABS: Bun/Creatinine Ratio 24.5 (12.0-20.0); Calcium, Blood 8.5 mg/dL (8.5-10.1); Creatinine, Blood 0.57 mg/dL (0.40-1.00); Potassium, Blood 4.6 mmol/L (3.5-5.5)
--- NOTE | 2022-07-04 10:52 | NUR ---
0920 pt has an SEO ASSOCIATE called due to lori having a siezure at the [facility]. 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 She was laying on the floor unresponsive. Once her pupils were checked which were a size 8 bilat. she started trembling. Her entire body was trembling. She was able to start slightly try to talk but it was not intelligable. Her spouse who was standing by her stated her last time to eat was last night and she took her medication this morning at 0430. She was suppose to get her next dose of medication at 1020 this am. He stated she would not want to go to the ER however she was lying on the floor and not able to communicate for her self or get up on her own. She was put onto a flat sheet and lifted off the floor to the rid. The staff at the [facility] stated she did not fall but was guided to the floor and layed down. She had NS going into her iv. Her VS were stable Sa02 was 100% on room air. BP stable 120/80's. She was taken to ER 9. She did start mildly talking once she was in the ER stating her first name and birthdate. SENIOR NET ENGINEER in room to resume care.
[2022-07-04 14:00] VITALS: BP 111/76
== END 2022-07-04 11:05 | disposition home or self-care (01) ==
LOC: ER 09:39
PROVIDERS: Student in an Organized Health Care Education/Training Program
DX: G40.909 Epilepsy, unspecified, not intractable, without status epilepticus (principal); R55 Syncope and collapse; Z79.899 Other long term (current) drug therapy; Z88.8 Allergy status to other drugs, medicaments and biological substances; Z87.891 Personal history of nicotine dependence
CPT/HCPCS: 80048; 84703

== ENCOUNTER 2022-07-08 01:29 | Day surgery (SDC) | payer OTHER ==
[2022-07-08 09:09] VITALS: BP 104/73
== END 2022-07-08 10:08 | disposition home or self-care (01) ==
LOC: ATC 01:29
DX: G90.A Postural orthostatic tachycardia syndrome [POTS] (principal)
CPT/HCPCS: 96360; J7030

== ENCOUNTER 2022-07-11 02:23 | Day surgery (SDC) | payer OTHER ==
[2022-07-11 07:46] VITALS: BP 109/69
== END 2022-07-11 08:55 | disposition home or self-care (01) ==
LOC: ATC 02:23
DX: G90.A Postural orthostatic tachycardia syndrome [POTS] (principal); F10.20 Alcohol dependence, uncomplicated; G40.909 Epilepsy, unspecified, not intractable, without status epilepticus; Z88.8 Allergy status to other drugs, medicaments and biological substances; Z79.899 Other long term (current) drug therapy
CPT/HCPCS: 96360; J7030

== ENCOUNTER 2022-07-15 00:48 | Day surgery (SDC) | payer OTHER ==
[2022-07-15 09:12] VITALS: BP 103/62
== END 2022-07-15 10:15 | disposition home or self-care (01) ==
LOC: ATC 00:48
DX: G90.A Postural orthostatic tachycardia syndrome [POTS] (principal)
CPT/HCPCS: 96360; J7030

== ENCOUNTER 2022-07-18 03:15 | Day surgery (SDC) | payer OTHER ==
[2022-07-18 07:50] VITALS: BP 104/64
== END 2022-07-18 08:58 | disposition home or self-care (01) ==
LOC: ATC 03:15
DX: G90.A Postural orthostatic tachycardia syndrome [POTS] (principal); G40.909 Epilepsy, unspecified, not intractable, without status epilepticus; F10.20 Alcohol dependence, uncomplicated
CPT/HCPCS: J7030

== ENCOUNTER 2022-07-22 01:04 | Day surgery (SDC) | payer OTHER ==
[2022-07-22 09:14] VITALS: BP 98/65
== END 2022-07-22 10:10 | disposition home or self-care (01) ==
LOC: ATC 01:04
DX: G90.A Postural orthostatic tachycardia syndrome [POTS] (principal)
CPT/HCPCS: 96360; J7030

== ENCOUNTER 2022-08-15 02:03 | Day surgery (SDC) | payer OTHER ==
[~2022-08-15 02:03] MED LIST changes: +PROM25 PO
[2022-08-15 08:03] VITALS: BP 105/68
== END 2022-08-15 09:07 | disposition home or self-care (01) ==
LOC: ATC 02:03
DX: G90.A Postural orthostatic tachycardia syndrome [POTS] (principal); G90.1 Familial dysautonomia [Riley-Day]
CPT/HCPCS: 96360; J7120

== ENCOUNTER 2022-08-18 01:44 | Day surgery (SDC) | payer OTHER ==
[2022-08-18 15:31] VITALS: BP 108/64
== END 2022-08-18 16:37 | disposition home or self-care (01) ==
LOC: ATC 01:44
DX: G90.A Postural orthostatic tachycardia syndrome [POTS] (principal); G90.1 Familial dysautonomia [Riley-Day]
CPT/HCPCS: 96360; J7120

== ENCOUNTER 2022-08-22 02:57 | Day surgery (SDC) | payer OTHER ==
[2022-08-22 09:57] VITALS: BP 97/67
== END 2022-08-22 10:58 | disposition home or self-care (01) ==
LOC: ATC 02:57
DX: G90.A Postural orthostatic tachycardia syndrome [POTS] (principal)
CPT/HCPCS: 96361; 96366; J7120

== ENCOUNTER 2022-08-25 03:32 | Day surgery (SDC) | payer OTHER ==
[2022-08-25 13:52] VITALS: BP 91/66
== END 2022-08-25 14:58 | disposition home or self-care (01) ==
LOC: ATC 03:32
DX: G90.A Postural orthostatic tachycardia syndrome [POTS] (principal)
CPT/HCPCS: 96360; J7120

== ENCOUNTER 2022-08-29 01:10 | Day surgery (SDC) | payer OTHER ==
[2022-08-29 08:33] VITALS: BP 103/70
== END 2022-08-29 09:37 | disposition home or self-care (01) ==
LOC: ATC 01:10
DX: G90.A Postural orthostatic tachycardia syndrome [POTS] (principal)
CPT/HCPCS: 96360; J7120

== ENCOUNTER 2022-09-05 02:47 | Day surgery (SDC) | payer OTHER ==
[2022-09-05 08:03] VITALS: BP 115/80
== END 2022-09-05 09:10 | disposition home or self-care (01) ==
LOC: ATC 02:47
DX: G90.A Postural orthostatic tachycardia syndrome [POTS] (principal)
CPT/HCPCS: 96360; J7120

== ENCOUNTER 2022-09-07 16:14 | Emergency (ER) | payer OTHER ==
[~2022-09-07] VITALS: Ht 162.6 cm; Wt 45.4 kg
[2022-09-07 16:55] VITALS: BP 107/93
== END 2022-09-07 18:13 | disposition home or self-care (01) ==
LOC: ER 16:14
DX: S51.812A Laceration without foreign body of left forearm, initial encounter (principal); F17.290 Nicotine dependence, other tobacco product, uncomplicated; Z88.8 Allergy status to other drugs, medicaments and biological substances; W26.0XXA Contact with knife, initial encounter
CPT/HCPCS: 12002; 99284-25

== ENCOUNTER 2022-09-23 01:45 | Inpatient (IN) | payer OTHER ==
[2022-09-23] VITALS (35 sets, daily range): BP systolic 90–129; BP diastolic 55–116
[~2022-09-23] VITALS: Ht 157.5 cm; Wt 48.2 kg
[2022-09-23 05:48] LABS: BASOPHILS ABSOLUTE AUTO 0.02 K/mm3 (0.00-0.23); BASOPHILS PERCENT AUTO 0 % (0-2); EOSINOPHILS ABSOLUTE AUTO 0.06 K/mm3 (0.00-0.68); EOSINOPHILS PERCENT AUTO 1 % (0-6); Hematocrit 31.4 % (33.0-51.0); Hemoglobin 11.1 g/dL (11.5-16.0); IMMATURE GRAN ABSOLUTE AUTO 0.01 K/mm3 (0.00-0.10); IMMATURE GRAN PERCENT AUTO 0 % (0-1); LYMPHOCYTES ABSOLUTE AUTO 2.28 K/mm3 (0.84-5.20); LYMPHOCYTES PERCENT AUTO 43 % (21-46); MONOCYTES ABSOLUTE AUTO 0.65 K/mm3 (0.16-1.47); MONOCYTES PERCENT AUTO 12 % (4-13); Mean Corpuscular HGB 32.4 pg (26.0-34.0); Mean Corpuscular HGB Conc 35.4 g/dL (31.5-36.5); Mean Corpuscular Volume 92 fL (80-100); Mean Platelet Volume 9.1 fL (9.1-12.4); NEUTROPHILS ABSOLUTE AUTO 2.24 K/mm3 (1.96-9.15); NEUTROPHILS PERCENT AUTO 43 % (41-73); Platelet Count 113 K/mm3 (150-400); RDW Coefficient Variation 14.2 % (11.7-14.2); RDW Standard Deviation 47.6 fL (35.1-46.3); Red Blood Cell Count 3.43 M/mm3 (3.80-5.20); White Blood Cell Count 5.26 K/mm3 (4.00-11.30)
[2022-09-23 06:24] LABS: Albumin, Blood 2.9 g/dL (3.4-5.0); Bilirubin, Total 0.9 mg/dL (0.1-1.0); Bun/Creatinine Ratio 16.9 (12.0-20.0); Calcium, Blood 8.3 mg/dL (8.5-10.1); Creatinine, Blood 0.53 mg/dL (0.40-1.00); Potassium, Blood 4.1 mmol/L (3.5-5.5); Total Protein, Blood 5.9 g/dL (6.4-8.2)
--- NOTE | 2022-09-23 10:00 | NUR ---
ICU ARRIVAL LATE ENTRY: PT ARRIVES TO ICU 5 FROM ER. PT IRRITABLE AND DOESN'T WANT TO ANSWER QUESTIONS. VERY TREMULOUS AND DIAPHORETIC. PRECEDEX STARTED. WILL MONITOR CIWA AND MEDICATE WITH ATIVAN PRN.
--- NOTE | 2022-09-23 18:00 | NUR ---
SUMMARY LATE ENTRY: PT SLEPT MOST OF THE DAY. WOULD WAKE UP YELLING OUT. REORIENTS EASILY. HAVING SOME HALLUCINATIONS. PT THOUGHT SHE HAD BEEN HERE FOR 2 DAYS ALREADY AND INSISTED THAT RN SHOW HER THE DATE TO BE SURE. ATIVAN GIVEN PRN AND PRECEDEX RUNNING. SEE CIWA ASSESSMENTS. PT OKAY'D STEPH TO RECEIVE INFO OVER THE PHONE, UPDATED AND HE WILL BE IN LATER TONIGHT.
--- NOTE | 2022-09-23 19:00 | NUR ---
ASSUMED CARE ASSUMED CARE OF PATIENT. PT SITTING UP IN BED, EATING DINNER. DENIES C/O NAUSEA AT THIS TIME. DENIES C/O PAIN OR DISCOMFORT. MONITOR SHOWS SR, RATE 90s. BP STABLE. RA SATS STABLE. RESPIRATIONS EVEN AND UNLABORED. REPOSITIONS SELF IN BED. D5LR INFUSING AT 125MLs/HR PER ORDER. PRECEDEX INFUSING AT 0.2 MCG/KG/HR. MULTIPLE BRUISES NOTED. SEE SHIFT ASSESSMENT FOR FULL ASSESSMENT.
[2022-09-24] VITALS (47 sets, daily range): BP systolic 86–127; BP diastolic 56–94
[2022-09-24 03:48] LABS: Albumin, Blood 2.6 g/dL (3.4-5.0); Bilirubin, Total 1.1 mg/dL (0.1-1.0); Bun/Creatinine Ratio 15.3 (12.0-20.0); Calcium, Blood 7.6 mg/dL (8.5-10.1); Creatinine, Blood 0.46 mg/dL (0.40-1.00); Globulin, Blood 2.7 g/dL (2.2-4.0); Magnesium, Blood 1.3 mg/dL (1.6-2.4); Potassium, Blood 3.7 mmol/L (3.5-5.5); Total Protein, Blood 5.3 g/dL (6.4-8.2)
--- NOTE | 2022-09-24 05:59 | NUR ---
SHIFT SUMMARY CIWA SCORES 14-24 DURING NOC. PRECEDEX CONTINUES AT 0.2MCG/KG/HR. MEDICATED WITH ATIVAN 2MG IV X 2 DOSES, LIBRIUM 50MG PO X 1 DOSE, AND KLONOPIN 1MG PO X 1 DOSE. PT C/O UPPER ABDOMINAL PAIN RADIATING THROUGH TO BACK- MEDICATED WITH ROXICODONE 5MG PO X 2 DOSES WITH SOME RELIEF, BUT REQUESTED SOMETHING STRONGER THIS AM. MEDICATED WITH FENTANYL 25MCG IV X 1 DOSE WITH GOOD RELIEF. C/O INTERMITTENT NAUSEA. UP TO BSC WITH ASSIST. VOIDING WITHOUT DIFFICULTY. MAGNESIUM LEVEL IS LOW ON THIS AM'S LAB- RECEIVING MAG SULFATE 2GMS IV AT THIS TIME. WILL REPORT TO ONCOMING RN WHEN AVAILABLE.
[2022-09-24 14:22] LABS: Source, Urine Clean Catch
[2022-09-24 14:36] LABS: Appearance, Urine Hazy (Clear); Bilirubin, Urine Neg (Neg); Blood, Urine Neg (Neg); Color, Urine Amber (P-Yellow); Glucose Qualitative, Urine Neg (Neg); Ketones, Urine 1+ (Neg); Leukocyte Esterase, Urine 1+ (Neg); Nitrite, Urine Neg (Neg); Protein, Urine Neg (Neg); Specific Gravity, Urine 1.015 (1.003-1.022); Urobilinogen, Urine 1+ (Normal)
[2022-09-24 14:42] LABS: Bacteria Many /hpf; Mucus Light (0-Heavy); Red Blood Cells, Urine 0-2 /hpf (0-2); Squamous Epithelial Cells Few /hpf (Few)
--- NOTE | 2022-09-24 18:07 | NUR ---
SUMMARY PT A/O TO PERSON, PLACE, SITUATION AND DATE. HAVE BEEN MEDICATING WITH ATIVAN AND LIBRIUM FOR WD SYMPTOMS. HAS BEEN OFF PRECEDEX SINCE THIS AM. SEE CIWA ASSESSMENTS. PT'S LIPASE IS ALSO HIGH. HAVING ABD PAIN THAT RADIATES TO BACK. PAIN IS WORSE WITH ANY MOVEMENT OOB. GIVING FENTANYL AND OXICODONE FOR PAIN. TOLERATING MINIMAL CL INTAKE. PT HAS A VERY STRICT DIET THAT SHE FOLLOWS AND IT IS DIFFICULT TO FIND OPTIONS IN THE HOSPITAL.
--- NOTE | 2022-09-24 21:45 | NUR ---
ASSUMED CARE OF PT AT 1915 RESING IN BED, RECENTLY MEDICATED WITH ATIVAN FOR ETOH W/D SYMPTOMS. C/O PAIN IN ABD AND BACK DUE TO PANCREATITIS. ON CONTINUOUS CARDIAC MONITORING, V/S STABLE. ST, BP WNL. ROOM AIR, O2 SAT 98%, LUNGS CLEAR/DIM BASES. DENIES NAUSEA, IS ON A CLEAR LIQUID DIET, REQUESTING MORE SOLID FOOD, EDUCATION PROVIDED ON DIETARY RESTRICTIONS DUE TO PANCREATITIS, PT VERBALIZES UNDERSTANDING. VOIDS USING BSC, CALLS FOR ASSISTANCE PRIOR TO GETTING OOB. SKIN WITH SCATTERED BRUISING, NO OPEN AREAS VISUALIZES. PIV X2, BOTH FLUSH WELL, IVF INFUSING. NO FAMILY AT BEDSIDE BUT PT KEEPS ON SPEAKERPHONE 04/09 FOR COMFORT.
[2022-09-25] VITALS (22 sets, daily range): BP systolic 72–125; BP diastolic 51–93
[2022-09-25 03:29] LABS: BASOPHILS ABSOLUTE AUTO 0.02 K/mm3 (0.00-0.23); BASOPHILS PERCENT AUTO 0 % (0-2); EOSINOPHILS ABSOLUTE AUTO 0.13 K/mm3 (0.00-0.68); EOSINOPHILS PERCENT AUTO 2 % (0-6); Hematocrit 32.3 % (33.0-51.0); Hemoglobin 11.1 g/dL (11.5-16.0); IMMATURE GRAN ABSOLUTE AUTO 0.03 K/mm3 (0.00-0.10); IMMATURE GRAN PERCENT AUTO 0 % (0-1); LYMPHOCYTES ABSOLUTE AUTO 1.91 K/mm3 (0.84-5.20); LYMPHOCYTES PERCENT AUTO 25 % (21-46); MONOCYTES ABSOLUTE AUTO 0.78 K/mm3 (0.16-1.47); MONOCYTES PERCENT AUTO 10 % (4-13); Mean Corpuscular HGB 32.2 pg (26.0-34.0); Mean Corpuscular HGB Conc 34.4 g/dL (31.5-36.5); Mean Corpuscular Volume 94 fL (80-100); Mean Platelet Volume 9.6 fL (9.1-12.4); NEUTROPHILS ABSOLUTE AUTO 4.76 K/mm3 (1.96-9.15); NEUTROPHILS PERCENT AUTO 62 % (41-73); Platelet Count 110 K/mm3 (150-400); RDW Coefficient Variation 14.1 % (11.7-14.2); RDW Standard Deviation 48.1 fL (35.1-46.3); Red Blood Cell Count 3.45 M/mm3 (3.80-5.20); White Blood Cell Count 7.63 K/mm3 (4.00-11.30)
[2022-09-25 03:47] LABS: Magnesium, Blood 1.8 mg/dL (1.6-2.4)
[2022-09-25 03:48] LABS: Albumin, Blood 2.7 g/dL (3.4-5.0); Albumin/Globulin Ratio 0.9 (0.8-1.8); Bilirubin, Total 0.8 mg/dL (0.1-1.0); Bun/Creatinine Ratio 5.6 (12.0-20.0); Calcium, Blood 7.9 mg/dL (8.5-10.1); Creatinine, Blood 0.54 mg/dL (0.40-1.00); Potassium, Blood 4.1 mmol/L (3.5-5.5); Total Protein, Blood 5.7 g/dL (6.4-8.2)
--- NOTE | 2022-09-25 06:23 | NUR ---
END OF SHIFT SUMMARY PT REMAINS A/O, UNSURE OF DATE. CIWA 15, MEDICATED WITH ATIVAN WITH GOOD RELIEF. CONTINUES TO HAVE SEVERE ABDOMINAL AND BACK PAIN RELATED TO PANCREATITIS. MEDICATED PER MAR EVERY [address], BP WNL (PT BASELINE). ON ROOM AIR, LUNGS CTA/DIM BASES. DENIES NAUSEA, HUNGRY. OFFERED JELLO, PT DECLINED. DRANK WATER AND COCONUT WATER. VOIDS USING BSC. SKIN INTACT, SCATTERED BRUISES ALL OVER BODY. PIV X1, FLUSHES WELL. REMOVED PIV FROM LEFT AC IT DID NOT FLUSH. KEPT UPDAED BY PT, NO FAMILY AT BEDSIDE.
--- NOTE | 2022-09-25 12:40 | NUR ---
CLEMENTE HAS BEEN ALERT AND ORIENTED. SOFT SPOKEN, APPROPRIATE. FOLLOWS DIRECTIONS. UP TO BSC WITH ASSISTANCE TO HELP STEADY. TO SHOWER WITH ASSISTANCE. SHE HAS BEEN MAKING PHONE CALLS TO AND OTHERS. IV INFUSING. UPON COMPLETION OF SHOWER, NOTED THAT THE RIGHT FOREARM SITE IS TENDER AND SLIGHTLY SWOLLEN. ADDITIONAL IV STARTED AND THE RIGHT FOREARM SITE DC'D. PT IS ANXIOUS TO GO TO [facility], FOR A WALK AND TO GO OUTSIDE. CALL WITH UPDATE TO WHO HAS DOWNGRADED HER TO MEDICAL STATUS WITHOUT TELEMETRY.
--- NOTE | 2022-09-25 14:31 | NUR ---
CLEMENTE IS BECOMING A BIT MORE AGITATED, SHE HAS BEEN SPEAKING TO HER OFF AND ON. SHE IS TRYING TO FIGURE OUT IF INPATIENT OR EXTENSIVE OUTPATIENT THERAPY WOULD BE BETTER FOR HER. SHE IS CONCERNED ABOUT HER ANIMALS AND THEIR CARE. SHE REALLY WANTS OUT OF HER ROOM, ALTHOUGH SHE SAYS SHE IS ANXIOUS ABOUT GOING TO A NEW FLOOR. SHE DID SAY SHE WAS ABLE TO TAKE A NAP.
--- NOTE | 2022-09-25 16:11 | NUR ---
PT ARRIVED TO MEDICAL FLOOR @1542 VIA WHEELCHAIR FROM ICU 05. LR RUNNING @100/HR. PT ANXIOUS AND IN PAIN ON ARRIVAL. 2MG ATIVAN GIVEN PER EMAR. PT APPEARS WITHDRAWN AND DEPRESSED. SKIN CHECK UNCHANGED. CALL LIGHT IN REACH.
--- NOTE | 2022-09-25 19:55 | NUR ---
SEDAATION-PHYSICIAN CONTACT. CIWA SCORE OF 12 TREATED WITH 3 MG OF ATIVAN. PT BECAME SEDATED UNABLE TO STAY AWAKE WHILE TAKING WITH THIS RN AND RESPIRATIONS DECREASED TO [address] DALTON NOTIFIED. 500CC LR BOLUS ORDERED & TRANSFER TO PCU ORDERED. NATIONAL VAN OWNER OPERATOR NOTIFIED.
--- NOTE | 2022-09-25 20:07 | NUR ---
PT THREATENING TO LEAVE AMA PT MORE ALERT AND UPSET ABOUT THE IDEA OF MOVING TO ANOTHER UNIT FOR CLOSER MONITORING. PT UPSET THAT ATIVAN WAS GIVEN TO HER AFTER SHE ASKED FOR MORE ATIVAN. PT STATES SHE "ONLY WANTED A SMALL AMOUNT OF EACH DRUG TO TAKE AWAY THE PAIN". PT EDUCATED ON HER SYMPTOMS AND CIWA SCORE PRIOR TO ATIVAN ADMINISTRATION. PT SEEMS TO NOT UNDERSTAND AND IS ASKING FOR A HEART MONITOR SO THAT SHE DOESNT HAVE TO MOVE ROOMS. PT STATES SHE WOULD RATHER LEAVE AND CALLED HER TO COME GET HER. DR. DALTON NOTIFIED OF THIS AND STATES HE WILL COME SPEAK TO THE PT WHEN FINISHED IN THE ER. PT STATES SHE WILL WAIT FOR THE DR BEFORE LEAVING. PRIOR TO ATIVAN ADMIN PT WAS STATING A PAIN OF 7/10 IN HER UPPER BACK AND ABD. PT NOW STATES HER PAIN IS GONE AND WANTS TO LEAVE AND GO TO [facility]. EARLIER SHE SAID SHE WAS ACCEPTED TO A REHAB FACILITY IN [place] THAT HER SET UP
--- NOTE | 2022-09-25 20:51 | NUR ---
AGREEABLE TO TRANSFER PT NOW AGREEABLE TO TRANSFER TO PCU NOW. CALL MADE OUT OT PCU NURSE. AWAITING CALL BACK.
--- NOTE | 2022-09-25 21:08 | NUR ---
TRANSFER TO PCU 17 REPORT GIVEN TO BRONW CASTAÑEDA. DR. DALTON NOTIFIED OF TRANSFER. PT NOTIFIED FAMILY OF TRANSFER. REFUSED TO RIDE IN WHEELCHAIR AND AMBULATING TO NEW ROOM WITH BROWN ESTEVES.
--- NOTE | 2022-09-25 22:57 | NUR ---
ASSUMPTION OF CARE THIS RN ASSUMED CARE OF PT AT 2110, REPORT FROM RADHAMES DASILVA ON MEDICAL FLOOR. PT ARRIVED AMBULATING INDEPENDENTLY W/RN. PT A&O X4, COOPERATIVE WITH CARE ALTHOUGH APPEARS FAIRLY ANXIOUS. PT STATES "SHE IS NERVOUS" BECAUSE SHE HAS NOT RECEIVED 2100 MEDICATIONS YET. THIS RN ASSURED PT THAT WE WOULD GET THEM SOON WE ARE SETTLED. PT ALSO REPORTS FEELS ANXIOUS D/T SITUATION ON MEDICAL FLOOR AND BEING TRANSFERRED TO PCU. THIS RN LISTENED TO CONCERNS AND ASSURED PT. VSS; HR ST 113, SBP 117, SPO2 99% ON RA, RR 17, AFEBRILE. PT AMBULATING INDEPENDENTLY IN ROOM AND TO RESTROOM. PT STEADY ON FEET. TREMORS NOTED. PT DENIES ANY DIZZINESS OR LIGHTHEADNESS AT THIS TIME. PT CALLING ON PHONE, THIS RN ALSO SPOKE TO PT'S AND ANSWERED QUESTIONS. PT ORIENTED TO ROOM, PT BELONGINGS W/PT. PT DOES REPORT SMOKING DAILY VIA VAPE. PT DENIES HAVING VAPE OR ANY IGNITION SOURCES WITH HER CURRENTLY. THIS RN EDUCATED PT ON SMOKE FREE CAMPUS AND ON FIRE RISKS. PT VERBALIZES UNDERSTANDING. MEDICATION ADMINISTERED, PT FINALLY ABLE TO RELAX AND GET SETTLED TO ROOM. PT NOW RESTING, APPEARS TO BE SLEEPING AT THIS TIME. CALL LIGHT IN REACH. LR INFUSING AT 100 MLS/HR PER EMAR
[2022-09-26 00:15] VITALS: BP 120/89
[2022-09-26 00:53] VITALS: BP 96/58
[2022-09-26 05:00] VITALS: BP 119/92
[2022-09-26 05:21] LABS: BASOPHILS ABSOLUTE AUTO 0.03 K/mm3 (0.00-0.23); BASOPHILS PERCENT AUTO 1 % (0-2); EOSINOPHILS ABSOLUTE AUTO 0.12 K/mm3 (0.00-0.68); EOSINOPHILS PERCENT AUTO 2 % (0-6); Hematocrit 32.4 % (33.0-51.0); Hemoglobin 11.1 g/dL (11.5-16.0); IMMATURE GRAN ABSOLUTE AUTO 0.02 K/mm3 (0.00-0.10); IMMATURE GRAN PERCENT AUTO 0 % (0-1); LYMPHOCYTES ABSOLUTE AUTO 1.79 K/mm3 (0.84-5.20); LYMPHOCYTES PERCENT AUTO 35 % (21-46); MONOCYTES ABSOLUTE AUTO 0.72 K/mm3 (0.16-1.47); MONOCYTES PERCENT AUTO 14 % (4-13); Mean Corpuscular HGB 32.8 pg (26.0-34.0); Mean Corpuscular HGB Conc 34.3 g/dL (31.5-36.5); Mean Corpuscular Volume 96 fL (80-100); Mean Platelet Volume 9.3 fL (9.1-12.4); NEUTROPHILS ABSOLUTE AUTO 2.39 K/mm3 (1.96-9.15); NEUTROPHILS PERCENT AUTO 47 % (41-73); Platelet Count 121 K/mm3 (150-400); RDW Coefficient Variation 14.2 % (11.7-14.2); RDW Standard Deviation 49.6 fL (35.1-46.3); Red Blood Cell Count 3.38 M/mm3 (3.80-5.20); White Blood Cell Count 5.07 K/mm3 (4.00-11.30)
[2022-09-26 05:44] LABS: Albumin, Blood 2.8 g/dL (3.4-5.0); Albumin/Globulin Ratio 0.8 (0.8-1.8); Bilirubin, Total 0.8 mg/dL (0.1-1.0); Calcium, Blood 8.7 mg/dL (8.5-10.1); Creatinine, Blood 0.5 mg/dL (0.40-1.00); Globulin, Blood 3.4 g/dL (2.2-4.0); Magnesium, Blood 1.7 mg/dL (1.6-2.4); Potassium, Blood 4.1 mmol/L (3.5-5.5); Total Protein, Blood 6.2 g/dL (6.4-8.2)
--- NOTE | 2022-09-26 06:44 | NUR ---
SHIFT SUMMARY PT A&O X4. PT ANXIOUS T/O SHIFT. CIWA 'S 8 - 14. MEDICATION PER PROTOCOL. PT RESTED ON AND OFF THROUGHOUT SHIFT. PT UP INDEPENDENTLY TO RESTROOM NEEDED W/SUPERVISION FOR SAFETY. PT AMBULATING AND TOLERATING WELL. PT HAD SHOWER THIS AM. PT C/O OF ABDOMINAL AND "BACK" PAIN 7-09/21; MEDICATED PER EMAR W/SOME RELIEF. PT EXPRESSES THAT SHE IS "GOING TO TREATMENT PROGRAM" SOON SHE CAN AND SOON SHE CAN GET "CORRECT PRESCRIPTIONS TO TAKE TO TREATMENT WTIH HER". PT ANXIOUS TO GET THIS DONE SO SHE CAN GO TO THE TREATMENT PROGRAM. DURING ASSESSMENT, THIS RN NOTED BRUISING ON BUE AND SCATTERED. PT STATES THIS IS FROM FALLING AT HOME AND FALLING BACK ON TO THE TUB; STATES SHE FEELS SAFE AT HOME AND DENIES ANY CONCERNS AT HOME. PT ALSO ANXIOUS ABOUT HER DOG; WANTS HER DOG TO COME VISIT AND WONDERING WHO WILL CARE FOR HIM AT HOME. PT NOW IN ROOM RESTING. WILL UPDATE ONCOMING RN.
[2022-09-26 07:19] VITALS: BP 114/84
[2022-09-26] MEDS ORDERED: OXAYDO5 M1 PO (11:11)
[2022-09-26] MEDS ORDERED: OMEP20ER PO (11:12)
--- NOTE | 2022-09-26 11:32 | NUR ---
DISCHARGE HOME PT A&O X4. CIWA STABLE. VSS. SPO2 > 92% ON RA. MONITOR SHOWING SR PRIOR TO TELEMETRY REMOVAL FOR DISCHARGE HOME. PT SELF DISCONNECTED IV FLUIDS & POWERED OFF PUMP, UNABLE TO RETRIEVE FLUID VOLUME FOR DOCUMENTATION. PT STATING "YOU'RE EMILIA I DIDN'T TAKE THE IV OUT MYSELF TOO." PIV REMOVED BY STAFF. DISCHARGE INSTRUCTIONS REVIEWED W/ PT & SENT HOME W/ PT. PT TAKEN OUT IN WHEELCHAIR W/ BELONGINGS BY PCT @ APPROX 1130.
== END 2022-09-26 11:27 | disposition home or self-care (01) | DRG 896 ==
LOC: ER 01:45 → ICUE 08:33 → MEDS 09-25 15:44 → PCU 09-25 21:11
PROVIDERS: Emergency Medicine; Family Medicine; ADMIT Hospitalist
PROC: HZ2ZZZZ Detoxification Services for Substance Abuse Treatment (ICD-10-PCS; principal; 2022-09-23)
DX: F10.139 Alcohol abuse with withdrawal, unspecified (principal); K85.20 Alcohol induced acute pancreatitis without necrosis or infection; Q21.12 Patent foramen ovale; F41.9 Anxiety disorder, unspecified; G90.1 Familial dysautonomia [Riley-Day]; G90.A Postural orthostatic tachycardia syndrome [POTS]; Y90.6 Blood alcohol level of 120-199 mg/100 ml; E83.42 Hypomagnesemia; D64.9 Anemia, unspecified; D69.6 Thrombocytopenia, unspecified; K21.9 Gastro-esophageal reflux disease without esophagitis; I95.9 Hypotension, unspecified; F17.290 Nicotine dependence, other tobacco product, uncomplicated; Z86.79 Personal history of other diseases of the circulatory system; Z98.890 Other specified postprocedural states; Z88.8 Allergy status to other drugs, medicaments and biological substances; Z79.899 Other long term (current) drug therapy; Z86.018 Personal history of other benign neoplasm; Z71.41 Alcohol abuse counseling and surveillance of alcoholic
CPT/HCPCS: 36415; 70450; 72125; 80053; 81001; 81025; 83690; 83735; 85025; 87086; 94760; 96374; 99285-25; A9270; C9113; G0480; J1200; J1650; J2060; J3010; J3411; J3475; J7030; J7050; J7120; J7121

== ENCOUNTER 2022-10-01 10:52 | Emergency (ER) | payer OTHER ==
[~2022-10-01] VITALS: Ht 162.6 cm; Wt 44.5 kg
[~2022-10-01 10:52] MED LIST changes: +OMEP20ER PO; +OXAYDO5 M1 PO
[2022-10-01 11:41] LABS: BASOPHILS ABSOLUTE AUTO 0.06 K/mm3 (0.00-0.23); BASOPHILS PERCENT AUTO 1 % (0-2); EOSINOPHILS ABSOLUTE AUTO 0.08 K/mm3 (0.00-0.68); EOSINOPHILS PERCENT AUTO 2 % (0-6); Hematocrit 38.5 % (33.0-51.0); Hemoglobin 12.8 g/dL (11.5-16.0); IMMATURE GRAN ABSOLUTE AUTO 0.04 K/mm3 (0.00-0.10); IMMATURE GRAN PERCENT AUTO 1 % (0-1); LYMPHOCYTES PERCENT AUTO 36 % (21-46); MONOCYTES ABSOLUTE AUTO 0.91 K/mm3 (0.16-1.47); MONOCYTES PERCENT AUTO 20 % (4-13); Mean Corpuscular HGB 32.3 pg (26.0-34.0); Mean Corpuscular HGB Conc 33.2 g/dL (31.5-36.5); Mean Corpuscular Volume 97 fL (80-100); Mean Platelet Volume 9.1 fL (9.1-12.4); NEUTROPHILS PERCENT AUTO 40 % (41-73); Platelet Count 450 K/mm3 (150-400); RDW Coefficient Variation 15.2 % (11.7-14.2); RDW Standard Deviation 54.5 fL (35.1-46.3); Red Blood Cell Count 3.96 M/mm3 (3.80-5.20); White Blood Cell Count 4.49 K/mm3 (4.00-11.30)
[2022-10-01 12:22] LABS: Albumin, Blood 3.5 g/dL (3.4-5.0); Albumin/Globulin Ratio 0.9 (0.8-1.8); Bilirubin, Total 0.6 mg/dL (0.1-1.0); Bun/Creatinine Ratio 13.1 (12.0-20.0); Calcium, Blood 9.1 mg/dL (8.5-10.1); Creatinine, Blood 0.61 mg/dL (0.40-1.00); Globulin, Blood 3.9 g/dL (2.2-4.0); Potassium, Blood 4.3 mmol/L (3.5-5.5); Total Protein, Blood 7.4 g/dL (6.4-8.2)
[2022-10-01 13:25] LABS: Ethanol (Alcohol), Blood, Med <3 mg/dL
[2022-10-01] MEDS ORDERED: Klonopin1 MG PO (13:41)
[2022-10-01 14:00] VITALS: BP 100/65
[2022-10-02] MEDS ORDERED: Klonopin1 MG PO (15:10)
== END 2022-10-01 14:58 | disposition home or self-care (01) ==
LOC: ER 10:52
PROVIDERS: Emergency Medicine; Student in an Organized Health Care Education/Training Program
DX: R56.9 Unspecified convulsions (principal); F41.9 Anxiety disorder, unspecified; Z76.0 Encounter for issue of repeat prescription; Z88.8 Allergy status to other drugs, medicaments and biological substances; Z79.899 Other long term (current) drug therapy
CPT/HCPCS: 80053; 83690; 83735; 85025; 93005; 93010; 96374; 99284-25; A9270; G0480; J2405; J7030

== ENCOUNTER 2022-10-02 14:54 | Emergency (ER) | payer OTHER ==
[~2022-10-02] VITALS: Ht 162.6 cm; Wt 56.7 kg
[~2022-10-02 14:54] MED LIST changes: +Klonopin1 MG PO
[2022-10-02 15:06] VITALS: BP 116/88
[2022-10-02] MEDS ORDERED: Klonopin1 MG PO (15:10)
== END 2022-10-02 15:15 | disposition home or self-care (01) ==
LOC: ER 14:54
DX: Z76.0 Encounter for issue of repeat prescription (principal); F17.290 Nicotine dependence, other tobacco product, uncomplicated; Z88.8 Allergy status to other drugs, medicaments and biological substances; Z79.899 Other long term (current) drug therapy
CPT/HCPCS: 99281

== ENCOUNTER 2022-10-03 09:07 | Day surgery (SDC) | payer OTHER ==
[2022-10-03 09:23] VITALS: BP 99/67
== END 2022-10-03 10:39 | disposition home or self-care (01) ==
LOC: ATC 09:07
DX: G90.A Postural orthostatic tachycardia syndrome [POTS] (principal); I45.6 Pre-excitation syndrome; G90.1 Familial dysautonomia [Riley-Day]; Z88.8 Allergy status to other drugs, medicaments and biological substances
CPT/HCPCS: 96360; J7120

== ENCOUNTER 2022-10-07 00:50 | Day surgery (SDC) | payer OTHER ==
[2022-10-07 09:37] VITALS: BP 94/67
== END 2022-10-07 10:51 | disposition home or self-care (01) ==
LOC: ATC 00:50
DX: G90.A Postural orthostatic tachycardia syndrome [POTS] (principal); G90.1 Familial dysautonomia [Riley-Day]; Z79.899 Other long term (current) drug therapy
CPT/HCPCS: 96360; J7120

== ENCOUNTER 2022-10-10 01:02 | Day surgery (SDC) | payer OTHER ==
[2022-10-10 07:38] VITALS: BP 89/67
== END 2022-10-10 08:51 | disposition home or self-care (01) ==
LOC: ATC 01:02
DX: G90.A Postural orthostatic tachycardia syndrome [POTS] (principal); G90.1 Familial dysautonomia [Riley-Day]
CPT/HCPCS: J7120

== ENCOUNTER 2022-10-14 02:12 | Day surgery (SDC) | payer OTHER ==
[2022-10-14 09:25] VITALS: BP 110/81
== END 2022-10-14 10:31 | disposition home or self-care (01) ==
LOC: ATC 02:12
DX: G90.A Postural orthostatic tachycardia syndrome [POTS] (principal); G90.1 Familial dysautonomia [Riley-Day]
CPT/HCPCS: 96360; J7120

== ENCOUNTER 2022-10-17 06:53 | Day surgery (SDC) | payer OTHER ==
[2022-10-17 07:55] VITALS: BP 107/73
== END 2022-10-17 09:03 | disposition home or self-care (01) ==
LOC: ATC 06:53
DX: G90.A Postural orthostatic tachycardia syndrome [POTS] (principal); G90.1 Familial dysautonomia [Riley-Day]
CPT/HCPCS: 96360; J7120

== ENCOUNTER 2022-10-24 02:19 | Day surgery (SDC) | payer OTHER ==
[2022-10-24 07:58] VITALS: BP 105/75
== END 2022-10-24 09:13 | disposition home or self-care (01) ==
LOC: ATC 02:19
DX: G90.A Postural orthostatic tachycardia syndrome [POTS] (principal)
CPT/HCPCS: 96360; J7120

== ENCOUNTER 2022-10-28 02:42 | Day surgery (SDC) | payer OTHER ==
[2022-10-28 09:54] VITALS: BP 93/70
== END 2022-10-28 10:47 | disposition home or self-care (01) ==
LOC: ATC 02:42
DX: G90.A Postural orthostatic tachycardia syndrome [POTS] (principal)
CPT/HCPCS: 96360; J7120

== ENCOUNTER 2022-10-31 02:26 | Day surgery (SDC) | payer OTHER ==
[2022-10-31 07:37] VITALS: BP 104/71
== END 2022-10-31 08:50 | disposition home or self-care (01) ==
LOC: ATC 02:26
DX: G90.A Postural orthostatic tachycardia syndrome [POTS] (principal); G90.1 Familial dysautonomia [Riley-Day]
CPT/HCPCS: 96360; J7120

== ENCOUNTER 2022-11-03 03:02 | Day surgery (SDC) | payer OTHER ==
[2022-11-03 09:35] VITALS: BP 100/74
== END 2022-11-03 10:46 | disposition home or self-care (01) ==
LOC: ATC 03:02
DX: G90.A Postural orthostatic tachycardia syndrome [POTS] (principal); G90.1 Familial dysautonomia [Riley-Day]
CPT/HCPCS: 96360; J7120

== ENCOUNTER 2022-11-11 01:16 | Day surgery (SDC) | payer OTHER ==
[2022-11-11 09:29] VITALS: BP 86/64
== END 2022-11-11 10:37 | disposition home or self-care (01) ==
LOC: ATC 01:16
DX: G90.A Postural orthostatic tachycardia syndrome [POTS] (principal); Z88.8 Allergy status to other drugs, medicaments and biological substances; G90.1 Familial dysautonomia [Riley-Day]
CPT/HCPCS: 96360; J7120

== ENCOUNTER 2022-11-16 07:49 | Day surgery (SDC) | payer OTHER ==
--- NOTE | 2022-11-15 12:22 | NUR ---
PT RESCHEDULED HER APPOINTMENT FOR TOMORROW.
[2022-11-16 10:30] VITALS: BP 110/73
== END 2022-11-16 11:31 | disposition home or self-care (01) ==
LOC: ATC 07:49
DX: G90.A Postural orthostatic tachycardia syndrome [POTS] (principal); G90.1 Familial dysautonomia [Riley-Day]; Z88.8 Allergy status to other drugs, medicaments and biological substances; Z79.899 Other long term (current) drug therapy
CPT/HCPCS: 96360; J7120

== ENCOUNTER 2022-11-19 00:24 | Day surgery (SDC) | payer OTHER ==
[2022-11-19 10:20] VITALS: BP 94/64
== END 2022-11-19 11:23 | disposition home or self-care (01) ==
LOC: ATC 00:24
DX: G90.A Postural orthostatic tachycardia syndrome [POTS] (principal); G90.1 Familial dysautonomia [Riley-Day]; Z88.8 Allergy status to other drugs, medicaments and biological substances; Z79.899 Other long term (current) drug therapy
CPT/HCPCS: 96360; J7120

== ENCOUNTER 2022-11-21 02:24 | Day surgery (SDC) | payer OTHER ==
[2022-11-21 09:29] VITALS: BP 105/71
== END 2022-11-21 10:20 | disposition home or self-care (01) ==
LOC: ATC 02:24
DX: G90.A Postural orthostatic tachycardia syndrome [POTS] (principal); G90.1 Familial dysautonomia [Riley-Day]
CPT/HCPCS: 96360; J7120

== ENCOUNTER 2022-11-24 03:02 | Day surgery (SDC) | payer OTHER ==
[2022-11-24 09:43] VITALS: BP 101/70
== END 2022-11-24 10:48 | disposition home or self-care (01) ==
LOC: ATC 03:02
DX: G90.A Postural orthostatic tachycardia syndrome [POTS] (principal); G90.1 Familial dysautonomia [Riley-Day]
CPT/HCPCS: 96360; J7120

== ENCOUNTER 2022-11-28 01:36 | Day surgery (SDC) | payer OTHER ==
[2022-11-28 13:56] VITALS: BP 87/59
== END 2022-11-28 14:53 | disposition home or self-care (01) ==
LOC: ATC 01:36
DX: G90.A Postural orthostatic tachycardia syndrome [POTS] (principal); Z88.8 Allergy status to other drugs, medicaments and biological substances; G90.1 Familial dysautonomia [Riley-Day]
CPT/HCPCS: 96360; J7120

== ENCOUNTER 2022-12-01 05:04 | Day surgery (SDC) | payer OTHER ==
[2022-12-01 09:00] VITALS: BP 114/76
== END 2022-12-01 10:03 | disposition home or self-care (01) ==
LOC: ATC 05:04
DX: G90.A Postural orthostatic tachycardia syndrome [POTS] (principal)
CPT/HCPCS: 96360; J7120

== ENCOUNTER 2022-12-05 00:15 | Day surgery (SDC) | payer OTHER ==
[2022-12-05 08:13] VITALS: BP 92/61
== END 2022-12-05 09:15 | disposition home or self-care (01) ==
LOC: ATC 00:15
DX: G90.A Postural orthostatic tachycardia syndrome [POTS] (principal); G90.1 Familial dysautonomia [Riley-Day]
CPT/HCPCS: J7120

== ENCOUNTER 2022-12-08 02:53 | Day surgery (SDC) | payer OTHER ==
[2022-12-08 08:43] VITALS: BP 101/66
== END 2022-12-08 23:43 | disposition home or self-care (01) ==
LOC: ATC 02:53
DX: G90.A Postural orthostatic tachycardia syndrome [POTS] (principal); G90.1 Familial dysautonomia [Riley-Day]
CPT/HCPCS: 96360; J7120

== ENCOUNTER 2022-12-12 01:26 | Day surgery (SDC) | payer OTHER ==
[2022-12-12 10:40] VITALS: BP 97/69
== END 2022-12-12 11:40 | disposition home or self-care (01) ==
LOC: ATC 01:26
DX: G90.A Postural orthostatic tachycardia syndrome [POTS] (principal); I45.6 Pre-excitation syndrome
CPT/HCPCS: 96365; J7120

== ENCOUNTER 2022-12-15 04:44 | Day surgery (SDC) | payer OTHER ==
[2022-12-15 10:41] VITALS: BP 99/71
== END 2022-12-15 11:50 | disposition home or self-care (01) ==
LOC: ATC 04:44
DX: G90.A Postural orthostatic tachycardia syndrome [POTS] (principal); G90.1 Familial dysautonomia [Riley-Day]; Z88.8 Allergy status to other drugs, medicaments and biological substances; Z79.899 Other long term (current) drug therapy
CPT/HCPCS: 96360; J7120

== ENCOUNTER 2022-12-18 08:03 | Emergency (ER) | payer OTHER ==
[~2022-12-18] VITALS: Ht 160 cm; Wt 145.2 kg
[2022-12-18 09:00] LABS: BASOPHILS ABSOLUTE AUTO 0.03 K/mm3 (0.00-0.23); BASOPHILS PERCENT AUTO 0 % (0-2); EOSINOPHILS ABSOLUTE AUTO 0.11 K/mm3 (0.00-0.68); EOSINOPHILS PERCENT AUTO 2 % (0-6); Hematocrit 40.4 % (33.0-51.0); Hemoglobin 14.1 g/dL (11.5-16.0); IMMATURE GRAN ABSOLUTE AUTO 0.02 K/mm3 (0.00-0.10); IMMATURE GRAN PERCENT AUTO 0 % (0-1); LYMPHOCYTES ABSOLUTE AUTO 2.39 K/mm3 (0.84-5.20); LYMPHOCYTES PERCENT AUTO 36 % (21-46); MONOCYTES ABSOLUTE AUTO 0.67 K/mm3 (0.16-1.47); MONOCYTES PERCENT AUTO 10 % (4-13); Mean Corpuscular HGB 32.8 pg (26.0-34.0); Mean Corpuscular HGB Conc 34.9 g/dL (31.5-36.5); Mean Corpuscular Volume 94 fL (80-100); Mean Platelet Volume 10.3 fL (9.1-12.4); NEUTROPHILS ABSOLUTE AUTO 3.52 K/mm3 (1.96-9.15); NEUTROPHILS PERCENT AUTO 52 % (41-73); Platelet Count 234 K/mm3 (150-400); RDW Coefficient Variation 11.5 % (11.7-14.2); RDW Standard Deviation 39.5 fL (35.1-46.3); White Blood Cell Count 6.74 K/mm3 (4.00-11.30)
[2022-12-18 09:31] LABS: Albumin, Blood 3.8 g/dL (3.4-5.0); Albumin/Globulin Ratio 1.1 (0.8-1.8); Bilirubin, Total 0.6 mg/dL (0.1-1.0); Bun/Creatinine Ratio 25.9 (12.0-20.0); Calcium, Blood 9.2 mg/dL (8.5-10.1); Creatinine, Blood 0.7 mg/dL (0.40-1.00); Globulin, Blood 3.6 g/dL (2.2-4.0); Potassium, Blood 4.2 mmol/L (3.5-5.5); Total Protein, Blood 7.4 g/dL (6.4-8.2)
[2022-12-18 10:25] LABS: Magnesium, Blood 1.9 mg/dL (1.6-2.4)
[2022-12-18 10:27] LABS: Thyroid Stimulating Hormone 1.05 uIU/mL (0.360-4.800)
[2022-12-18 10:30] VITALS: BP 99/64
== END 2022-12-18 11:24 | disposition home or self-care (01) ==
LOC: ER 08:03
PROVIDERS: Emergency Medicine
DX: R00.2 Palpitations (principal); Z88.8 Allergy status to other drugs, medicaments and biological substances; Z79.899 Other long term (current) drug therapy; F17.210 Nicotine dependence, cigarettes, uncomplicated; F17.290 Nicotine dependence, other tobacco product, uncomplicated
CPT/HCPCS: 80053; 83735; 84443; 84484; 85025; 93005; 93010; 93242; 99285-25

== ENCOUNTER 2022-12-19 05:48 | Day surgery (SDC) | payer OTHER ==
[2022-12-19 16:16] VITALS: BP 98/73
== END 2022-12-19 22:55 | disposition home or self-care (01) ==
LOC: ATC 05:48
DX: G90.A Postural orthostatic tachycardia syndrome [POTS] (principal)
CPT/HCPCS: 96360; J7120

== ENCOUNTER 2022-12-22 01:42 | Day surgery (SDC) | payer OTHER ==
[2022-12-22 07:58] VITALS: BP 101/69
== END 2022-12-22 09:07 | disposition home or self-care (01) ==
LOC: ATC 01:42
DX: G90.A Postural orthostatic tachycardia syndrome [POTS] (principal); G90.1 Familial dysautonomia [Riley-Day]
CPT/HCPCS: 96360; J7120

== ENCOUNTER 2022-12-28 02:06 | Day surgery (SDC) | payer OTHER ==
[2022-12-28 10:30] VITALS: BP 102/73
== END 2022-12-28 11:33 | disposition home or self-care (01) ==
LOC: ATC 02:06
DX: G90.A Postural orthostatic tachycardia syndrome [POTS] (principal); G90.1 Familial dysautonomia [Riley-Day]; Z88.8 Allergy status to other drugs, medicaments and biological substances; Z79.899 Other long term (current) drug therapy
CPT/HCPCS: 96360; J7120

== ENCOUNTER 2022-12-31 01:22 | Day surgery (SDC) | payer OTHER ==
[2022-12-31 10:45] VITALS: BP 102/64
== END 2022-12-31 11:47 | disposition home or self-care (01) ==
LOC: ATC 01:22
DX: G90.A Postural orthostatic tachycardia syndrome [POTS] (principal); I45.6 Pre-excitation syndrome
CPT/HCPCS: 96360; J7120

== ENCOUNTER 2023-01-02 02:54 | Day surgery (SDC) | payer OTHER ==
[2023-01-02 15:20] VITALS: BP 113/73
== END 2023-01-02 16:20 | disposition home or self-care (01) ==
LOC: ATC 02:54
DX: G90.A Postural orthostatic tachycardia syndrome [POTS] (principal)
CPT/HCPCS: 96360; J7120

== ENCOUNTER 2023-01-05 07:43 | Day surgery (SDC) | payer OTHER ==
[2023-01-05 07:50] VITALS: BP 95/79
== END 2023-01-05 08:57 | disposition home or self-care (01) ==
LOC: ATC 07:43
DX: G90.A Postural orthostatic tachycardia syndrome [POTS] (principal)
CPT/HCPCS: 96360; J7120

== ENCOUNTER 2023-01-09 01:21 | Day surgery (SDC) | payer OTHER ==
[2023-01-09 10:17] VITALS: BP 110/72
== END 2023-01-09 11:24 | disposition home or self-care (01) ==
LOC: ATC 01:21
DX: G90.A Postural orthostatic tachycardia syndrome [POTS] (principal)
CPT/HCPCS: 96360; J7120

== ENCOUNTER 2023-01-12 03:47 | Day surgery (SDC) | payer OTHER ==
[2023-01-12 09:13] VITALS: BP 99/74
== END 2023-01-12 10:04 | disposition home or self-care (01) ==
LOC: ATC 03:47
DX: G90.A Postural orthostatic tachycardia syndrome [POTS] (principal); I45.6 Pre-excitation syndrome
CPT/HCPCS: 96360; J7120

== ENCOUNTER 2023-01-16 03:02 | Day surgery (SDC) | payer OTHER ==
[2023-01-16 15:01] VITALS: BP 97/63
== END 2023-01-16 16:24 | disposition home or self-care (01) ==
LOC: ATC 03:02
DX: G90.A Postural orthostatic tachycardia syndrome [POTS] (principal); I45.6 Pre-excitation syndrome; G90.1 Familial dysautonomia [Riley-Day]
CPT/HCPCS: 96360; J7120

== ENCOUNTER 2023-01-16 08:21 | Emergency (ER) | payer OTHER ==
[~2023-01-16] VITALS: Ht 162.6 cm; Wt 53.5 kg
[2023-01-16 10:14] LABS: BASOPHILS ABSOLUTE AUTO 0.03 K/mm3 (0.00-0.23); BASOPHILS PERCENT AUTO 0 % (0-2); EOSINOPHILS ABSOLUTE AUTO 0.13 K/mm3 (0.00-0.68); EOSINOPHILS PERCENT AUTO 2 % (0-6); Hematocrit 41.8 % (33.0-51.0); Hemoglobin 14.7 g/dL (11.5-16.0); IMMATURE GRAN ABSOLUTE AUTO 0.03 K/mm3 (0.00-0.10); IMMATURE GRAN PERCENT AUTO 0 % (0-1); LYMPHOCYTES ABSOLUTE AUTO 2.69 K/mm3 (0.84-5.20); LYMPHOCYTES PERCENT AUTO 32 % (21-46); MONOCYTES ABSOLUTE AUTO 0.69 K/mm3 (0.16-1.47); MONOCYTES PERCENT AUTO 8 % (4-13); Mean Corpuscular HGB Conc 35.2 g/dL (31.5-36.5); Mean Corpuscular Volume 91 fL (80-100); Mean Platelet Volume 10.3 fL (9.1-12.4); NEUTROPHILS ABSOLUTE AUTO 4.89 K/mm3 (1.96-9.15); NEUTROPHILS PERCENT AUTO 58 % (41-73); Platelet Count 233 K/mm3 (150-400); RDW Coefficient Variation 11.7 % (11.7-14.2); RDW Standard Deviation 38.5 fL (35.1-46.3); White Blood Cell Count 8.46 K/mm3 (4.00-11.30)
[2023-01-16 10:49] LABS: Alanine Aminotransfer (ALT/SGP 28 U/L (12-78); Albumin, Blood 3.9 g/dL (3.4-5.0); Alk Phos 59 U/L (50-136); Anion Gap 4 mmol/L (6-16); Aspartate Aminotrans (AST/SGOT 22 U/L (12-37); Beta HCG, Quantitative, Serum <1 mIU/mL (0-3); Bilirubin, Total 0.7 mg/dL (0.1-1.0); Blood Urea Nitrogen 15 mg/dL (8-24); Bun/Creatinine Ratio 27.9 (12.0-20.0); CO2, Blood 27 mmol/L (21-32); Calcium, Blood 9.1 mg/dL (8.5-10.1); Chloride, Blood 108 mmol/L (98-108); Creatinine, Blood 0.54 mg/dL (0.40-1.00); Globulin, Blood 3.9 g/dL (2.2-4.0); Glomerular Filtration Rate 125 (60-); Glucose, Blood 92 mg/dL (70-99); Sodium, Blood 139 mmol/L (136-145); Total Protein, Blood 7.8 g/dL (6.4-8.2)
[2023-01-16 11:15] VITALS: BP 93/77
== END 2023-01-16 11:28 | disposition home or self-care (01) ==
LOC: ER 08:21
PROVIDERS: Physician Assistant
DX: G40.909 Epilepsy, unspecified, not intractable, without status epilepticus (principal); G90.A Postural orthostatic tachycardia syndrome [POTS]; F17.210 Nicotine dependence, cigarettes, uncomplicated; F17.290 Nicotine dependence, other tobacco product, uncomplicated; Z88.8 Allergy status to other drugs, medicaments and biological substances; Z79.899 Other long term (current) drug therapy
CPT/HCPCS: 80053; 84702; 85025; 99284

== ENCOUNTER 2023-01-20 02:30 | Day surgery (SDC) | payer OTHER ==
[2023-01-20 09:57] VITALS: BP 97/66
== END 2023-01-20 11:00 | disposition home or self-care (01) ==
LOC: ATC 02:30
DX: G90.A Postural orthostatic tachycardia syndrome [POTS] (principal)
CPT/HCPCS: 96360; J7120

== ENCOUNTER 2023-01-23 04:06 | Day surgery (SDC) | payer OTHER ==
[2023-01-23 10:05] VITALS: BP 103/63
== END 2023-01-23 11:15 | disposition home or self-care (01) ==
LOC: ATC 04:06
DX: G90.A Postural orthostatic tachycardia syndrome [POTS] (principal); G90.1 Familial dysautonomia [Riley-Day]
CPT/HCPCS: 96360; J7120

== ENCOUNTER 2023-01-30 00:42 | Day surgery (SDC) | payer OTHER ==
[2023-01-30 10:38] VITALS: BP 119/74
== END 2023-01-30 11:41 | disposition home or self-care (01) ==
LOC: ATC 00:42
DX: G90.A Postural orthostatic tachycardia syndrome [POTS] (principal); G90.1 Familial dysautonomia [Riley-Day]; Z79.899 Other long term (current) drug therapy; Z88.8 Allergy status to other drugs, medicaments and biological substances
CPT/HCPCS: 96360; J7120

== ENCOUNTER 2023-02-02 03:05 | Day surgery (SDC) | payer OTHER ==
[2023-02-02 07:56] VITALS: BP 108/65
== END 2023-02-02 09:05 | disposition home or self-care (01) ==
LOC: ATC 03:05
DX: G90.A Postural orthostatic tachycardia syndrome [POTS] (principal); G90.1 Familial dysautonomia [Riley-Day]
CPT/HCPCS: 96360; J7120

== ENCOUNTER 2023-02-06 01:40 | Day surgery (SDC) | payer OTHER ==
[2023-02-06 14:00] VITALS: BP 111/70
== END 2023-02-06 15:14 | disposition home or self-care (01) ==
LOC: ATC 01:40
DX: G90.A Postural orthostatic tachycardia syndrome [POTS] (principal); G90.1 Familial dysautonomia [Riley-Day]
CPT/HCPCS: 96360; J7120

== ENCOUNTER 2023-02-13 02:48 | Day surgery (SDC) | payer OTHER ==
[2023-02-13 10:10] VITALS: BP 107/72
== END 2023-02-13 11:10 | disposition home or self-care (01) ==
LOC: ATC 02:48
DX: G90.A Postural orthostatic tachycardia syndrome [POTS] (principal)
CPT/HCPCS: 96360; J7120

== ENCOUNTER 2023-02-20 00:43 | Day surgery (SDC) | payer OTHER ==
[2023-02-20 10:15] VITALS: BP 106/74
== END 2023-02-20 11:20 | disposition home or self-care (01) ==
LOC: ATC 00:43
DX: G90.A Postural orthostatic tachycardia syndrome [POTS] (principal); G90.1 Familial dysautonomia [Riley-Day]
CPT/HCPCS: 96360; J7120

== ENCOUNTER 2023-02-23 08:28 | Day surgery (SDC) | payer OTHER ==
[2023-02-23 08:39] VITALS: BP 103/73
== END 2023-02-23 09:40 | disposition home or self-care (01) ==
LOC: ATC 08:28
DX: G90.A Postural orthostatic tachycardia syndrome [POTS] (principal)
CPT/HCPCS: 96360; J7120

== ENCOUNTER 2023-02-27 03:47 | Day surgery (SDC) | payer OTHER ==
[2023-02-27 10:11] VITALS: BP 101/66
== END 2023-02-27 11:20 | disposition home or self-care (01) ==
LOC: ATC 03:47
DX: G90.A Postural orthostatic tachycardia syndrome [POTS] (principal)
CPT/HCPCS: 96360; J7120

== ENCOUNTER 2023-03-02 01:11 | Day surgery (SDC) | payer OTHER ==
[2023-03-02 10:15] VITALS: BP 107/71
== END 2023-03-02 10:50 | disposition home or self-care (01) ==
LOC: ATC 01:11
DX: G90.A Postural orthostatic tachycardia syndrome [POTS] (principal); G90.1 Familial dysautonomia [Riley-Day]
CPT/HCPCS: 96360; J7120

== ENCOUNTER 2023-03-06 02:27 | Day surgery (SDC) | payer OTHER ==
[2023-03-06 10:05] VITALS: BP 109/69
== END 2023-03-06 11:13 | disposition home or self-care (01) ==
LOC: ATC 02:27
DX: G90.A Postural orthostatic tachycardia syndrome [POTS] (principal); Z88.8 Allergy status to other drugs, medicaments and biological substances; Z79.899 Other long term (current) drug therapy
CPT/HCPCS: 96360; J7120

== ENCOUNTER 2023-03-13 00:26 | Day surgery (SDC) | payer OTHER ==
[2023-03-13 10:03] VITALS: BP 114/83
== END 2023-03-13 11:08 | disposition home or self-care (01) ==
LOC: ATC 00:26
DX: G90.A Postural orthostatic tachycardia syndrome [POTS] (principal); I49.8 Other specified cardiac arrhythmias; Z79.899 Other long term (current) drug therapy
CPT/HCPCS: 96360; J7120

== ENCOUNTER 2023-03-16 01:45 | Day surgery (SDC) | payer OTHER ==
[2023-03-16 08:01] VITALS: BP 93/65
== END 2023-03-16 09:05 | disposition home or self-care (01) ==
LOC: ATC 01:45
DX: G90.A Postural orthostatic tachycardia syndrome [POTS] (principal); Z88.8 Allergy status to other drugs, medicaments and biological substances; G90.1 Familial dysautonomia [Riley-Day]
CPT/HCPCS: 96360; J7120

== ENCOUNTER 2023-03-20 01:48 | Day surgery (SDC) | payer OTHER ==
[2023-03-20] MEDS ORDERED: Lactated Ringer's 1,000 ML IV SCH (10:10)
[2023-03-20 10:15] VITALS: BP 114/74
[2023-03-21] MEDS ORDERED: NS 1,000 ML IV SCH (07:30)
== END 2023-03-20 11:21 | disposition home or self-care (01) ==
LOC: ATC 01:48
DX: G90.A Postural orthostatic tachycardia syndrome [POTS] (principal); I49.8 Other specified cardiac arrhythmias; I45.6 Pre-excitation syndrome; Z79.899 Other long term (current) drug therapy
CPT/HCPCS: 96360; J7120

== ENCOUNTER 2023-03-23 00:49 | Day surgery (SDC) | payer OTHER ==
[2023-03-23] MEDS ORDERED: Lactated Ringer's 1,000 ML IV SCH (06:40)
[2023-03-23 07:57] VITALS: BP 96/62
== END 2023-03-23 09:14 | disposition home or self-care (01) ==
LOC: ATC 00:49
DX: G90.A Postural orthostatic tachycardia syndrome [POTS] (principal); I49.8 Other specified cardiac arrhythmias
CPT/HCPCS: 96360; J7120

== ENCOUNTER 2023-03-27 01:54 | Day surgery (SDC) | payer OTHER ==
[2023-03-27] MEDS ORDERED: Lactated Ringer's 1,000 ML IV SCH (07:10)
[2023-03-27 10:13] VITALS: BP 103/86
== END 2023-03-27 11:20 | disposition home or self-care (01) ==
LOC: ATC 01:54
DX: G90.A Postural orthostatic tachycardia syndrome [POTS] (principal); I49.8 Other specified cardiac arrhythmias
CPT/HCPCS: 96360; J7120

== ENCOUNTER 2023-03-30 01:22 | Day surgery (SDC) | payer OTHER ==
[2023-03-30] MEDS ORDERED: Lactated Ringer's 1,000 ML IV SCH (06:55)
[2023-03-30 07:53] VITALS: BP 106/70
== END 2023-03-30 08:57 | disposition home or self-care (01) ==
LOC: ATC 01:22
DX: G90.A Postural orthostatic tachycardia syndrome [POTS] (principal); I49.8 Other specified cardiac arrhythmias
CPT/HCPCS: 96360; J7120

== ENCOUNTER 2023-04-03 03:34 | Day surgery (SDC) | payer OTHER ==
[2023-04-03] MEDS ORDERED: Lactated Ringer's 1,000 ML IV SCH (07:10)
[2023-04-03 09:43] VITALS: BP 110/60
== END 2023-04-03 10:22 | disposition home or self-care (01) ==
LOC: ATC 03:34
DX: G90.A Postural orthostatic tachycardia syndrome [POTS] (principal); I49.8 Other specified cardiac arrhythmias
CPT/HCPCS: 96360; J7120

== ENCOUNTER 2023-04-06 05:09 | Day surgery (SDC) | payer OTHER ==
[2023-04-06] MEDS ORDERED: Lactated Ringer's 1,000 ML IV SCH (06:45)
[2023-04-06 08:00] VITALS: BP 104/70
== END 2023-04-06 09:17 | disposition home or self-care (01) ==
LOC: ATC 05:09
DX: G90.A Postural orthostatic tachycardia syndrome [POTS] (principal); I49.8 Other specified cardiac arrhythmias; Z88.5 Allergy status to narcotic agent
CPT/HCPCS: 96360; J7120

== ENCOUNTER 2023-06-05 01:24 | Day surgery (SDC) | payer OTHER ==
[2023-06-05] MEDS ORDERED: Lactated Ringer's 1,000 ML IV SCH (07:30)
[2023-06-05 10:25] VITALS: BP 104/67
== END 2023-06-05 11:30 | disposition home or self-care (01) ==
LOC: ATC 01:24
DX: G90.A Postural orthostatic tachycardia syndrome [POTS] (principal); I49.8 Other specified cardiac arrhythmias; Z79.899 Other long term (current) drug therapy; Z88.8 Allergy status to other drugs, medicaments and biological substances
CPT/HCPCS: 96360; J7120

== ENCOUNTER 2023-06-25 18:07 | Emergency (ER) | payer OTHER ==
[~2023-06-25] VITALS: Ht 162.6 cm; Wt 47.6 kg
[2023-06-26 00:45] VITALS: BP 117/85
== END 2023-06-26 01:00 ==
LOC: ER 18:07
DX: F10.239 Alcohol dependence with withdrawal, unspecified (principal); F17.290 Nicotine dependence, other tobacco product, uncomplicated; Z88.8 Allergy status to other drugs, medicaments and biological substances; Z79.899 Other long term (current) drug therapy

== ENCOUNTER 2023-09-06 09:06 | Emergency (ER) | payer OTHER ==
[~2023-09-06] VITALS: Ht 162.6 cm; Wt 54.4 kg
[2023-09-06] MEDS ORDERED: NS 1,000 ML IV SCH (09:35)
[2023-09-06 09:41] LABS: Source, Urine Clean Catch
[2023-09-06 09:48] LABS: BASOPHILS ABSOLUTE AUTO 0.04 K/mm3 (0.00-0.23); BASOPHILS PERCENT AUTO 0 % (0-2); EOSINOPHILS ABSOLUTE AUTO 0.11 K/mm3 (0.00-0.68); EOSINOPHILS PERCENT AUTO 1 % (0-6); Hematocrit 40.7 % (33.0-51.0); Hemoglobin 14.1 g/dL (11.5-16.0); IMMATURE GRAN ABSOLUTE AUTO 0.05 K/mm3 (0.00-0.10); IMMATURE GRAN PERCENT AUTO 1 % (0-1); LYMPHOCYTES ABSOLUTE AUTO 2.32 K/mm3 (0.84-5.20); LYMPHOCYTES PERCENT AUTO 26 % (21-46); MONOCYTES PERCENT AUTO 7 % (4-13); Mean Corpuscular HGB 33.7 pg (26.0-34.0); Mean Corpuscular HGB Conc 34.6 g/dL (31.5-36.5); Mean Corpuscular Volume 97 fL (80-100); Mean Platelet Volume 10.1 fL (9.1-12.4); NEUTROPHILS ABSOLUTE AUTO 5.91 K/mm3 (1.96-9.15); NEUTROPHILS PERCENT AUTO 66 % (41-73); Platelet Count 242 K/mm3 (150-400); RDW Coefficient Variation 11.9 % (11.7-14.2); Red Blood Cell Count 4.19 M/mm3 (3.80-5.20); White Blood Cell Count 9.03 K/mm3 (4.00-11.30)
[2023-09-06 09:49] LABS: Bilirubin, Urine Neg (Neg); Blood, Urine Neg (Neg); Glucose Qualitative, Urine Neg (Neg); Ketones, Urine Neg (Neg); Leukocyte Esterase, Urine Neg (Neg); Nitrite, Urine Neg (Neg); Protein, Urine Neg (Neg); Urobilinogen, Urine NORM (Normal)
[2023-09-06] MEDS ORDERED: Clomiphene Citr50 MG PO (09:49)
[2023-09-06 09:50] LABS: Appearance, Urine Clear (Clear); Color, Urine Yellow (P-Yellow)
[2023-09-06 10:12] LABS: Albumin, Blood 3.6 g/dL (3.4-5.0); Bilirubin, Total 0.6 mg/dL (0.1-1.0); Bun/Creatinine Ratio 18.7 (12.0-20.0); Calcium, Blood 8.8 mg/dL (8.5-10.1); Creatinine, Blood 0.54 mg/dL (0.40-1.00); Globulin, Blood 3.5 g/dL (2.2-4.0); Potassium, Blood 4.1 mmol/L (3.5-5.5); Total Protein, Blood 7.1 g/dL (6.4-8.2)
[2023-09-06 10:45] LABS: Influenza A, PCR NEGATIVE (NEGATIVE); Influenza B, PCR NEGATIVE (NEGATIVE); Resp Syncytial Virus, PCR NEGATIVE (NEGATIVE); SARS-Cov-2 (COVID-19) PCR, MMC NEGATIVE (NEGATIVE)
[2023-09-06] MEDS ORDERED: Ketorolac Tromethamine 15mg Vial IV ONE (11:25)
[2023-09-06] MEDS ORDERED: Ondansetron HCl 2 MG / ML 2ML Vial IV ONE (11:25)
[2023-09-06] MEDS ORDERED: ONDA4ODT MM (12:25)
[2023-09-06 12:43] VITALS: BP 110/55
[2023-09-07] MEDS ORDERED: POTA8 (01:45)
[2023-09-07] MEDS ORDERED: DIAZ2 PO (06:48)
== END 2023-09-06 12:44 | disposition home or self-care (01) ==
LOC: ER 09:06
PROVIDERS: Emergency Medicine; Student in an Organized Health Care Education/Training Program
DX: N83.9 Noninflammatory disorder of ovary, fallopian tube and broad ligament, unspecified (principal); F17.290 Nicotine dependence, other tobacco product, uncomplicated; Z79.899 Other long term (current) drug therapy; Z88.8 Allergy status to other drugs, medicaments and biological substances; R10.2 Pelvic and perineal pain; E87.6 Hypokalemia
CPT/HCPCS: 0241U; 74177; 76705; 76857; 80053; 81003; 81025; 83605; 83690; 85025; 96361; 96374; 96374-59; 96375; 99284-25; J1885; J2405; J3360; J7030; Q9967

== ENCOUNTER 2023-09-07 01:26 | Emergency (ER) | payer OTHER ==
[~2023-09-07] VITALS: Ht 162.6 cm; Wt 54.4 kg
[~2023-09-07 01:26] MED LIST changes: +Clomiphene Citr50 MG PO
[2023-09-07] MEDS ORDERED: POTA8 (01:45)
[2023-09-07] MEDS ORDERED: Ondansetron HCl 2 MG / ML 2ML Vial IV ONE ×2 (02:25→06:00)
[2023-09-07] MEDS ORDERED: Ketorolac Tromethamine 30mg Vial IV ONE (02:25)
[2023-09-07] MEDS ORDERED: NS 1,000 ML IV SCH (02:30)
[2023-09-07 02:34] LABS: BASOPHILS ABSOLUTE AUTO 0.04 K/mm3 (0.00-0.23); BASOPHILS PERCENT AUTO 0 % (0-2); EOSINOPHILS ABSOLUTE AUTO 0.12 K/mm3 (0.00-0.68); EOSINOPHILS PERCENT AUTO 1 % (0-6); Hematocrit 40.5 % (33.0-51.0); Hemoglobin 13.8 g/dL (11.5-16.0); IMMATURE GRAN ABSOLUTE AUTO 0.04 K/mm3 (0.00-0.10); IMMATURE GRAN PERCENT AUTO 0 % (0-1); LYMPHOCYTES ABSOLUTE AUTO 1.85 K/mm3 (0.84-5.20); LYMPHOCYTES PERCENT AUTO 14 % (21-46); MONOCYTES ABSOLUTE AUTO 0.82 K/mm3 (0.16-1.47); MONOCYTES PERCENT AUTO 6 % (4-13); Mean Corpuscular HGB 33.2 pg (26.0-34.0); Mean Corpuscular HGB Conc 34.1 g/dL (31.5-36.5); Mean Corpuscular Volume 97 fL (80-100); Mean Platelet Volume 9.8 fL (9.1-12.4); NEUTROPHILS ABSOLUTE AUTO 10.09 K/mm3 (1.96-9.15); NEUTROPHILS PERCENT AUTO 78 % (41-73); Platelet Count 245 K/mm3 (150-400); RDW Coefficient Variation 11.9 % (11.7-14.2); RDW Standard Deviation 43.3 fL (35.1-46.3); Red Blood Cell Count 4.16 M/mm3 (3.80-5.20); White Blood Cell Count 12.96 K/mm3 (4.00-11.30)
[2023-09-07 02:51] LABS: Albumin, Blood 3.6 g/dL (3.4-5.0); Albumin/Globulin Ratio 1.1 (0.8-1.8); Bilirubin, Total 0.6 mg/dL (0.1-1.0); Bun/Creatinine Ratio 19.7 (12.0-20.0); Calcium, Blood 8.8 mg/dL (8.5-10.1); Creatinine, Blood 0.56 mg/dL (0.40-1.00); Globulin, Blood 3.4 g/dL (2.2-4.0); Potassium, Blood 4.5 mmol/L (3.5-5.5)
[2023-09-07] MEDS ORDERED: Diazepam 5 MG / ML 2ML SYR IV ONE (05:45)
[2023-09-07 05:55] LABS: Source, Urine Clean Catch
[2023-09-07 06:01] LABS: Appearance, Urine Clear (Clear); Bilirubin, Urine Neg (Neg); Blood, Urine Neg (Neg); Color, Urine Yellow (P-Yellow); Glucose Qualitative, Urine Neg (Neg); Ketones, Urine Neg (Neg); Leukocyte Esterase, Urine Neg (Neg); Nitrite, Urine Neg (Neg); Protein, Urine Neg (Neg); Urobilinogen, Urine NORM (Normal)
[2023-09-07 06:12] VITALS: BP 122/79
[2023-09-07] MEDS ORDERED: DIAZ2 PO (06:48)
== END 2023-09-07 06:57 | disposition home or self-care (01) ==
LOC: ER 01:26
PROVIDERS: Emergency Medicine
DX: R10.2 Pelvic and perineal pain (principal); E87.6 Hypokalemia; F17.290 Nicotine dependence, other tobacco product, uncomplicated; Z79.899 Other long term (current) drug therapy; Z88.8 Allergy status to other drugs, medicaments and biological substances
CPT/HCPCS: 76705; 76857; 80053; 81003; 83605; 85025; J1885; J2405; J3360; J7030

== ENCOUNTER 2023-09-07 21:55 | Inpatient (IN) | payer OTHER ==
[~2023-09-07] VITALS: Ht 160 cm; Wt 59.4 kg
[~2023-09-07 21:55] MED LIST changes: +DIAZ2 PO; +POTA8
[2023-09-07] MEDS ORDERED: Morphine Sulfate 4 MG/1 ML Injection IV ONE (23:10)
[2023-09-07] MEDS ORDERED: Ketorolac Tromethamine 30mg Vial IV ONE (23:10)
[2023-09-07] MEDS ORDERED: Ondansetron HCl 2 MG / ML 2ML Vial IV ONE (23:10)
[2023-09-08] MEDS ORDERED: Naloxone HCl 0.4MG / ML 1ML Vial IV PRN (00:05)
[2023-09-08] MEDS ORDERED: Morphine Sulfate 4 MG/1 ML Injection IV PRN ×2 (00:05→00:15)
[2023-09-08] MEDS ORDERED: Ondansetron HCl 2 MG / ML 2ML Vial IV PRN (00:05)
[2023-09-08] MEDS ORDERED: Prochlorperazine Edisylate 10 mg Vial IV PRN (00:05)
[2023-09-08] MEDS ORDERED: Lactated Ringer's 1,000 ML IV SCH (00:05)
[2023-09-08] MEDS ORDERED: DiphenhydrAMINE HCL 25 MG Cap PO PRN (00:10)
[2023-09-08] MEDS ORDERED: ClonazePAM 1 MG Tab PO PRN (00:15)
[2023-09-08] MEDS ORDERED: Ondansetron HCl 2 MG / ML 2ML Vial IV ONE (01:00)
[2023-09-08] MEDS ORDERED: Morphine Sulfate 4 MG/1 ML Injection IV ONE (01:00)
[2023-09-08 01:24] VITALS: BP 122/96
--- NOTE | 2023-09-08 01:30 | NUR ---
ARRIVAL TO UNIT PT ARRIVED TO UNIT VIA GURNEY FROM ER. PT ABLE TO TRANSFER TO BED WITH 1P SBA. PT VOIDED UPON ARRIVAL. LUNGS SOUND CLEAR. PT DENIES ANY NAUSEA AT THIS TIME, MEDICATED FOR PAIN. VSS. NO OTHER CONCERNS AT THIS TIME, CALL LIGHT WITHIN REACH
[2023-09-08] MEDS ORDERED: Gabapentin 300 MG Cap PO SCH ×2 (05:30→21:00)
[2023-09-08] MEDS ORDERED: Propranolol HCL 20 MG TAB PO SCH (05:30)
[2023-09-08 05:45] LABS: BASOPHILS ABSOLUTE AUTO 0.04 K/mm3 (0.00-0.23); BASOPHILS PERCENT AUTO 0 % (0-2); EOSINOPHILS ABSOLUTE AUTO 0.11 K/mm3 (0.00-0.68); EOSINOPHILS PERCENT AUTO 1 % (0-6); Hematocrit 37.7 % (33.0-51.0); Hemoglobin 13.1 g/dL (11.5-16.0); IMMATURE GRAN ABSOLUTE AUTO 0.03 K/mm3 (0.00-0.10); IMMATURE GRAN PERCENT AUTO 0 % (0-1); LYMPHOCYTES ABSOLUTE AUTO 2.53 K/mm3 (0.84-5.20); LYMPHOCYTES PERCENT AUTO 26 % (21-46); MONOCYTES ABSOLUTE AUTO 0.81 K/mm3 (0.16-1.47); MONOCYTES PERCENT AUTO 8 % (4-13); Mean Corpuscular HGB 33.9 pg (26.0-34.0); Mean Corpuscular HGB Conc 34.7 g/dL (31.5-36.5); Mean Corpuscular Volume 98 fL (80-100); Mean Platelet Volume 10.1 fL (9.1-12.4); NEUTROPHILS ABSOLUTE AUTO 6.09 K/mm3 (1.96-9.15); NEUTROPHILS PERCENT AUTO 64 % (41-73); Platelet Count 201 K/mm3 (150-400); RDW Coefficient Variation 11.9 % (11.7-14.2); RDW Standard Deviation 42.9 fL (35.1-46.3); Red Blood Cell Count 3.86 M/mm3 (3.80-5.20); White Blood Cell Count 9.61 K/mm3 (4.00-11.30)
[2023-09-08] MEDS ORDERED: Ketorolac Tromethamine 15mg Vial IV SCH (06:00)
[2023-09-08] MEDS ORDERED: Acetaminophen 500 MG Tab PO SCH (06:00)
--- NOTE | 2023-09-08 06:18 | NUR ---
SHIFT SUMMARY NO ACUTE CHANGES SINCE COMING TO THE FLOOR. PT REMAINS NPO AND HAS FLUIDS RUNNING. PT STATES ABLE TO HAVE SOME REFLIEF AND GET SOME REST. VSS NO OTHER CONCERNS AT THIS TIME, CALL LIGHT WITHIN REACH
[2023-09-08 06:20] LABS: Bun/Creatinine Ratio 17.9 (12.0-20.0); Calcium, Blood 8.4 mg/dL (8.5-10.1); Creatinine, Blood 0.56 mg/dL (0.40-1.00)
[2023-09-08 07:14] VITALS: BP 101/41
[2023-09-08] MEDS ORDERED: OxyCODONE HCL 5 MG TAB PO PRN ×2 (13:05)
[2023-09-08] MEDS ORDERED: Ketorolac Tromethamine 15mg Vial IV PRN (13:15)
[2023-09-08] MEDS ORDERED: Potassium Chloride 20 MEQ TabCR PO SCH (14:00)
--- NOTE | 2023-09-08 15:40 | NUR ---
SHIFT SUMMARY PT REPORTS PAIN MANAGED PER EMAR WITH PO PAIN MEDS. TOLERATING HER DIET WELL. ADVANCING DIET SLOWLY. USING HEAT PAD WITH GOOD EFFECT. PLAN IS FOR POSSIBLE DISCHARGE TOMORROW.
[2023-09-08 15:43] VITALS: BP 115/74
[2023-09-08 19:46] VITALS: BP 99/69
[2023-09-08 21:08] VITALS: BP 104/70
--- NOTE | 2023-09-08 23:22 | NUR ---
PATIENT REPORTING THAT SHE TAKES 200MG OF PO GABAPENTIN AT 0530 AND 1730 DAILY. MD CONTACTED. RECEIVED ORDER TO CHANGE SCHEDULED DOSE AND TIME OF MEDICATION.
[2023-09-09 04:30] VITALS: BP 96/58
[2023-09-09 04:53] LABS: BASOPHILS ABSOLUTE AUTO 0.05 K/mm3 (0.00-0.23); BASOPHILS PERCENT AUTO 1 % (0-2); EOSINOPHILS ABSOLUTE AUTO 0.14 K/mm3 (0.00-0.68); EOSINOPHILS PERCENT AUTO 2 % (0-6); Hematocrit 36.1 % (33.0-51.0); Hemoglobin 12.1 g/dL (11.5-16.0); IMMATURE GRAN ABSOLUTE AUTO 0.03 K/mm3 (0.00-0.10); IMMATURE GRAN PERCENT AUTO 1 % (0-1); LYMPHOCYTES ABSOLUTE AUTO 2.18 K/mm3 (0.84-5.20); LYMPHOCYTES PERCENT AUTO 36 % (21-46); MONOCYTES ABSOLUTE AUTO 0.67 K/mm3 (0.16-1.47); MONOCYTES PERCENT AUTO 11 % (4-13); Mean Corpuscular HGB 33.2 pg (26.0-34.0); Mean Corpuscular HGB Conc 33.5 g/dL (31.5-36.5); Mean Corpuscular Volume 99 fL (80-100); Mean Platelet Volume 10.1 fL (9.1-12.4); NEUTROPHILS ABSOLUTE AUTO 2.92 K/mm3 (1.96-9.15); NEUTROPHILS PERCENT AUTO 49 % (41-73); Platelet Count 194 K/mm3 (150-400); RDW Coefficient Variation 11.9 % (11.7-14.2); RDW Standard Deviation 43.3 fL (35.1-46.3); Red Blood Cell Count 3.65 M/mm3 (3.80-5.20); White Blood Cell Count 5.99 K/mm3 (4.00-11.30)
[2023-09-09 05:19] VITALS: BP 101/63
[2023-09-09] MEDS ORDERED: Gabapentin 100 MG Cap PO SCH (05:30)
--- NOTE | 2023-09-09 05:42 | NUR ---
SHIFT SUMMARY ASSUMED CARE AT APPROX 1915. NO ACUTE EVENTS OVERNIGHT. PATIENT SLEPT T/O, IS EASILY AROUSABLE WITH VERBAL STIMULI. ALERT AND ORIENTED X4. COMMUNICATES NEEDS EFFECTIVELY. INDEPENDENT IN ROOM AND WITH ALL ADLs. SHOWERED THIS EVENING. AT BEDSIDE T/O NIGHT - OKAY PER COMPETITIVE ATHLETE MEGAN. VSS. BP SOFT AT TIMES, SBP 90s-100s. IS BASELINE PER PATIENT. ASYMPTOMATIC. MAP >65. ON ROOM AIR, SATs >90%. RESPIRATIONS EVEN, UNLABORED. MANAGING R OVARIAN PAIN PER EMAR WITH 10MG PO OXYCODONE AND SCHEDULED PO TYLENOL. K PAD IN PLACE. X2 EPISODES OF NAUSEA, NO VOMITING. CALL LIGHT IN REACH. WILL CONTINUE TO MONITOR AND REPORT TO ONCOMING RN.
[2023-09-09 07:46] VITALS: BP 90/56
[2023-09-09] MEDS ORDERED: Polyethylene Glycol 3350 17 gm PO SCH (11:30)
[2023-09-09] MEDS ORDERED: Prenatal Vit/FE Fumarate/FA 1 Tab PO SCH (11:30)
[2023-09-09] MEDS ORDERED: OXAYDO5 M1 PO (12:54)
[2023-09-09] MEDS ORDERED: MIRALAX17 GM PO (12:55)
--- NOTE | 2023-09-09 15:03 | NUR ---
DISCHARGE PT DISCHARGED HOME FROM UNIT AT APROX 1440. PT GIVEN WRITTEN AND VERBAL DC INSTRUCTIONS AND VERBALIZED UNDERSTANDING OF THESE INSTRUCTIONS. IV REMVED, TOLERATED WELL. RX FOR PAIN MEDICATION AND MIRALAX ELECTRONICALLY SENT BY DR LOERA. PT DECLINED WC TO CAR.
[2023-09-10] MEDS ORDERED: Polyethylene Glycol 3350 17 gm PO SCH (09:00)
[2023-09-10] MEDS ORDERED: Prenatal Vit/FE Fumarate/FA 1 Tab PO SCH (09:00)
== END 2023-09-09 14:49 | disposition home or self-care (01) | DRG 760 ==
LOC: ER 21:55 → SURS 21:56
PROVIDERS: ADMIT Obstetrics & Gynecology
DX: D27.0 Benign neoplasm of right ovary (principal); N98.1 Hyperstimulation of ovaries; N83.01 Follicular cyst of right ovary; G90.A Postural orthostatic tachycardia syndrome [POTS]; Z87.442 Personal history of urinary calculi; F41.9 Anxiety disorder, unspecified; Z87.19 Personal history of other diseases of the digestive system; Z98.890 Other specified postprocedural states; F17.210 Nicotine dependence, cigarettes, uncomplicated; Z88.8 Allergy status to other drugs, medicaments and biological substances; Z79.899 Other long term (current) drug therapy; R10.2 Pelvic and perineal pain; E87.6 Hypokalemia; F17.290 Nicotine dependence, other tobacco product, uncomplicated
CPT/HCPCS: 36415; 76857; 80048; 85025; 94762; 96374; 96375; 96376; 99284; A9270; G0378; J1885; J2270; J2405; J7120

== ENCOUNTER 2023-11-27 14:42 | Emergency (ER) | payer OTHER ==
[~2023-11-27] VITALS: Ht 162.6 cm; Wt 59.0 kg
[~2023-11-27 14:42] MED LIST changes: +MIRALAX17 GM PO
[2023-11-27 14:48] VITALS: BP 117/84
[2023-11-27] MEDS ORDERED: HYDROmorphone HCl 2 MG Tab PO ONE (17:40)
[2023-11-27] MEDS ORDERED: NS 1,000 ML IV SCH (17:50)
[2023-11-27 18:17] LABS: BASOPHILS ABSOLUTE AUTO 0.04 K/mm3 (0.00-0.23); BASOPHILS PERCENT AUTO 1 % (0-2); EOSINOPHILS ABSOLUTE AUTO 0.13 K/mm3 (0.00-0.68); EOSINOPHILS PERCENT AUTO 2 % (0-6); Hematocrit 38.5 % (33.0-51.0); Hemoglobin 13.8 g/dL (11.5-16.0); IMMATURE GRAN ABSOLUTE AUTO 0.02 K/mm3 (0.00-0.10); IMMATURE GRAN PERCENT AUTO 0 % (0-1); LYMPHOCYTES ABSOLUTE AUTO 2.78 K/mm3 (0.84-5.20); LYMPHOCYTES PERCENT AUTO 32 % (21-46); MONOCYTES PERCENT AUTO 7 % (4-13); Mean Corpuscular HGB 31.3 pg (26.0-34.0); Mean Corpuscular HGB Conc 35.8 g/dL (31.5-36.5); Mean Corpuscular Volume 87 fL (80-100); Mean Platelet Volume 9.9 fL (9.1-12.4); NEUTROPHILS ABSOLUTE AUTO 5.12 K/mm3 (1.96-9.15); NEUTROPHILS PERCENT AUTO 59 % (41-73); Platelet Count 245 K/mm3 (150-400); RDW Coefficient Variation 11.6 % (11.7-14.2); RDW Standard Deviation 37.3 fL (35.1-46.3); Red Blood Cell Count 4.41 M/mm3 (3.80-5.20); White Blood Cell Count 8.69 K/mm3 (4.00-11.30)
[2023-11-27 18:39] LABS: Albumin, Blood 3.6 g/dL (3.4-5.0); Bilirubin, Total 0.6 mg/dL (0.1-1.0); Bun/Creatinine Ratio 19.9 (12.0-20.0); Calcium, Blood 9.3 mg/dL (8.5-10.1); Creatinine, Blood 0.55 mg/dL (0.40-1.00); Globulin, Blood 3.5 g/dL (2.2-4.0); Potassium, Blood 3.7 mmol/L (3.5-5.5); Total Protein, Blood 7.1 g/dL (6.4-8.2)
[2023-11-27] MEDS ORDERED: Ketorolac Tromethamine 15mg Vial IV ONE (18:45)
[2023-11-27 19:18] LABS: Source, Urine Clean Catch
[2023-11-27 19:28] LABS: Bilirubin, Urine Neg (Neg); Blood, Urine Neg (Neg); Glucose Qualitative, Urine Neg (Neg); Ketones, Urine Neg (Neg); Leukocyte Esterase, Urine Neg (Neg); Nitrite, Urine Neg (Neg); Protein, Urine Neg (Neg); Urobilinogen, Urine NORM (Normal)
[2023-11-27 19:37] LABS: Appearance, Urine Clear (Clear); Color, Urine Pale Yellow (P-Yellow)
[2023-11-27] MEDS ORDERED: HYDMOR2 PO (19:58)
== END 2023-11-27 20:04 | disposition home or self-care (01) ==
LOC: ER 14:42
PROVIDERS: Student in an Organized Health Care Education/Training Program
DX: N80.9 Endometriosis, unspecified (principal); D27.0 Benign neoplasm of right ovary; D25.1 Intramural leiomyoma of uterus; F17.210 Nicotine dependence, cigarettes, uncomplicated; Z88.8 Allergy status to other drugs, medicaments and biological substances; Z79.899 Other long term (current) drug therapy
CPT/HCPCS: 76856; 80053; 81003; 85025; 96361; 96374; 99284-25; A9270; J1885; J7030

== ENCOUNTER 2023-11-30 15:10 | Emergency (ER) | payer OTHER ==
[~2023-11-30] VITALS: Ht 162.6 cm; Wt 59.0 kg
[~2023-11-30 15:10] MED LIST changes: +HYDMOR2 PO; -POTA8; +POTCHL20ER PO
[2023-11-30 15:23] VITALS: BP 124/96
[2023-11-30] MEDS ORDERED: HYDMOR2 PO (15:25)
[2024-01-25] MEDS ORDERED: THERA-D2000 UNIT PO (08:56)
== END 2023-11-30 15:28 | disposition home or self-care (01) ==
LOC: ER 15:10
DX: Z76.0 Encounter for issue of repeat prescription (principal); F17.290 Nicotine dependence, other tobacco product, uncomplicated; Z79.899 Other long term (current) drug therapy; Z88.8 Allergy status to other drugs, medicaments and biological substances
CPT/HCPCS: 99281

== ENCOUNTER 2024-01-21 08:06 | Emergency (ER) | payer OTHER ==
[~2024-01-21] VITALS: Ht 162.6 cm; Wt 59.0 kg
[2024-01-21] MEDS ORDERED: HYDROmorphone HCl/Pf 1MG SYR IV ONE (09:30)
[2024-01-21] MEDS ORDERED: Ondansetron HCl 2 MG / ML 2ML Vial IV ONE (09:30)
[2024-01-21] MEDS ORDERED: Ketorolac Tromethamine 30mg Vial IV ONE (09:30)
[2024-01-21 10:08] LABS: Source, Urine Clean Catch
[2024-01-21 10:13] LABS: Appearance, Urine Clear (Clear); Bilirubin, Urine Neg (Neg); Blood, Urine Neg (Neg); Color, Urine Yellow (P-Yellow); Glucose Qualitative, Urine Neg (Neg); Ketones, Urine Neg (Neg); Leukocyte Esterase, Urine Neg (Neg); Nitrite, Urine Neg (Neg); Protein, Urine Neg (Neg); Urobilinogen, Urine NORM (Normal)
[2024-01-21] MEDS ORDERED: HYDMOR2 PO (12:17)
[2024-01-21 12:32] VITALS: BP 117/72
[2024-01-25] MEDS ORDERED: THERA-D2000 UNIT PO (08:56)
== END 2024-01-21 12:33 | disposition home or self-care (01) ==
LOC: ER 08:06
PROVIDERS: Emergency Medicine
DX: R10.30 Lower abdominal pain, unspecified (principal); N80.9 Endometriosis, unspecified; D39.11 Neoplasm of uncertain behavior of right ovary; F17.290 Nicotine dependence, other tobacco product, uncomplicated; Z88.8 Allergy status to other drugs, medicaments and biological substances; Z79.899 Other long term (current) drug therapy
CPT/HCPCS: 76770; 76830; 76856; 81003; 96374; 96375; 99284-25; J1171; J1885; J2405

== ENCOUNTER 2024-01-27 05:49 | Emergency (ER) | payer OTHER ==
[~2024-01-27] VITALS: Ht 162.6 cm; Wt 59.0 kg
[~2024-01-27 05:49] MED LIST changes: +THERA-D2000 UNIT PO
[2024-01-27] MEDS ORDERED: Dilaudid 2 mg Ta2 MG (06:07)
[2024-01-27] MEDS ORDERED: OXYC10ER PO (06:08)
[2024-01-27] MEDS ORDERED: MAGNESIUM OXID500 MG PO (06:09)
[2024-01-27] MEDS ORDERED: NS 1,000 ML IV SCH (08:10)
[2024-01-27] MEDS ORDERED: Ondansetron HCl 2 MG / ML 2ML Vial IV ONE (08:10)
[2024-01-27] MEDS ORDERED: HYDROmorphone HCl/Pf 1MG SYR IV ONE (08:10)
[2024-01-27 09:22] LABS: BASOPHILS ABSOLUTE AUTO 0.03 K/mm3 (0.00-0.23); BASOPHILS PERCENT AUTO 0 % (0-2); EOSINOPHILS ABSOLUTE AUTO 0.15 K/mm3 (0.00-0.68); EOSINOPHILS PERCENT AUTO 2 % (0-6); Hematocrit 39.7 % (33.0-51.0); Hemoglobin 14.1 g/dL (11.5-16.0); IMMATURE GRAN ABSOLUTE AUTO 0.02 K/mm3 (0.00-0.10); IMMATURE GRAN PERCENT AUTO 0 % (0-1); LYMPHOCYTES ABSOLUTE AUTO 2.09 K/mm3 (0.84-5.20); LYMPHOCYTES PERCENT AUTO 29 % (21-46); MONOCYTES ABSOLUTE AUTO 0.71 K/mm3 (0.16-1.47); MONOCYTES PERCENT AUTO 10 % (4-13); Mean Corpuscular HGB 31.8 pg (26.0-34.0); Mean Corpuscular HGB Conc 35.5 g/dL (31.5-36.5); Mean Corpuscular Volume 89 fL (80-100); Mean Platelet Volume 10.3 fL (9.1-12.4); NEUTROPHILS ABSOLUTE AUTO 4.25 K/mm3 (1.96-9.15); NEUTROPHILS PERCENT AUTO 59 % (41-73); Platelet Count 204 K/mm3 (150-400); RDW Coefficient Variation 11.9 % (11.7-14.2); RDW Standard Deviation 39.3 fL (35.1-46.3); Red Blood Cell Count 4.44 M/mm3 (3.80-5.20); White Blood Cell Count 7.25 K/mm3 (4.00-11.30)
[2024-01-27 09:40] LABS: Albumin, Blood 3.3 g/dL (3.4-5.0); Albumin/Globulin Ratio 0.9 (0.8-1.8); Bilirubin, Total 0.8 mg/dL (0.1-1.0); Creatinine, Blood 0.6 mg/dL (0.40-1.00); Globulin, Blood 3.6 g/dL (2.2-4.0); Potassium, Blood 4.7 mmol/L (3.5-5.5); Total Protein, Blood 6.9 g/dL (6.4-8.2)
[2024-01-27] MEDS ORDERED: HYDMOR2 PO (10:49)
[2024-01-27 10:57] VITALS: BP 134/85
== END 2024-01-27 10:49 | disposition home or self-care (01) ==
LOC: ER 05:49
PROVIDERS: Student in an Organized Health Care Education/Training Program
DX: R10.31 Right lower quadrant pain (principal); R10.32 Left lower quadrant pain; K62.89 Other specified diseases of anus and rectum; D27.0 Benign neoplasm of right ovary; N20.0 Calculus of kidney; F17.290 Nicotine dependence, other tobacco product, uncomplicated; Z88.8 Allergy status to other drugs, medicaments and biological substances; Z79.899 Other long term (current) drug therapy
CPT/HCPCS: 74177; 76857; 80053; 83690; 85025; 96374-59; 96375; 99284-25; J1171; J2405; J7030; Q9967

== ENCOUNTER 2024-02-01 12:40 | Emergency (ER) | payer OTHER ==
[~2024-02-01] VITALS: Ht 162.6 cm; Wt 56.7 kg
[~2024-02-01 12:40] MED LIST changes: +Dilaudid 2 mg Ta2 MG; +MAGNESIUM OXID500 MG PO; +OXYC10ER PO
[2024-02-01 13:13] VITALS: BP 123/94
[2024-02-01] MEDS ORDERED: Ondansetron HCl 2 MG / ML 2ML Vial IV PRN (13:20)
[2024-02-01 13:39] LABS: BASOPHILS ABSOLUTE AUTO 0.04 K/mm3 (0.00-0.23); BASOPHILS PERCENT AUTO 1 % (0-2); EOSINOPHILS ABSOLUTE AUTO 0.06 K/mm3 (0.00-0.68); EOSINOPHILS PERCENT AUTO 1 % (0-6); Hematocrit 43.8 % (33.0-51.0); Hemoglobin 15.4 g/dL (11.5-16.0); IMMATURE GRAN ABSOLUTE AUTO 0.01 K/mm3 (0.00-0.10); IMMATURE GRAN PERCENT AUTO 0 % (0-1); LYMPHOCYTES ABSOLUTE AUTO 2.78 K/mm3 (0.84-5.20); LYMPHOCYTES PERCENT AUTO 36 % (21-46); MONOCYTES ABSOLUTE AUTO 0.56 K/mm3 (0.16-1.47); MONOCYTES PERCENT AUTO 7 % (4-13); Mean Corpuscular HGB 30.9 pg (26.0-34.0); Mean Corpuscular HGB Conc 35.2 g/dL (31.5-36.5); Mean Corpuscular Volume 88 fL (80-100); Mean Platelet Volume 9.8 fL (9.1-12.4); NEUTROPHILS ABSOLUTE AUTO 4.29 K/mm3 (1.96-9.15); NEUTROPHILS PERCENT AUTO 56 % (41-73); Platelet Count 298 K/mm3 (150-400); RDW Coefficient Variation 11.9 % (11.7-14.2); RDW Standard Deviation 37.9 fL (35.1-46.3); Red Blood Cell Count 4.99 M/mm3 (3.80-5.20); White Blood Cell Count 7.74 K/mm3 (4.00-11.30)
[2024-02-01 14:03] LABS: Albumin, Blood 4.1 g/dL (3.4-5.0); Bilirubin, Total 0.7 mg/dL (0.1-1.0); Bun/Creatinine Ratio 16.6 (12.0-20.0); Calcium, Blood 10.5 mg/dL (8.5-10.1); Creatinine, Blood 0.6 mg/dL (0.40-1.00); Globulin, Blood 4.1 g/dL (2.2-4.0); Potassium, Blood 4.2 mmol/L (3.5-5.5); Total Protein, Blood 8.2 g/dL (6.4-8.2)
[2024-02-02] MEDS ORDERED: ONDA4ODT MM (12:27)
[2024-02-02] MEDS ORDERED: TRAM50 PO (12:27)
[2024-02-02] MEDS ORDERED: KETO10 PO (12:27)
== END 2024-02-01 15:47 | disposition left against medical advice (07) ==
LOC: ER 12:40
PROVIDERS: Emergency Medicine
DX: R11.2 Nausea with vomiting, unspecified (principal); R10.9 Unspecified abdominal pain; R19.7 Diarrhea, unspecified; Z53.21 Procedure and treatment not carried out due to patient leaving prior to being seen by health care provider
CPT/HCPCS: 80053; 83690; 85025; J2405

== ENCOUNTER 2024-02-02 07:40 | Emergency (ER) | payer OTHER ==
[~2024-02-02] VITALS: Ht 170.2 cm; Wt 56.7 kg
[2024-02-02 09:05] LABS: BASOPHILS ABSOLUTE AUTO 0.04 K/mm3 (0.00-0.23); BASOPHILS PERCENT AUTO 1 % (0-2); EOSINOPHILS ABSOLUTE AUTO 0.04 K/mm3 (0.00-0.68); EOSINOPHILS PERCENT AUTO 1 % (0-6); Hematocrit 42.4 % (33.0-51.0); Hemoglobin 15.2 g/dL (11.5-16.0); IMMATURE GRAN ABSOLUTE AUTO 0.03 K/mm3 (0.00-0.10); IMMATURE GRAN PERCENT AUTO 0 % (0-1); LYMPHOCYTES ABSOLUTE AUTO 2.16 K/mm3 (0.84-5.20); LYMPHOCYTES PERCENT AUTO 25 % (21-46); MONOCYTES PERCENT AUTO 7 % (4-13); Mean Corpuscular HGB 31.2 pg (26.0-34.0); Mean Corpuscular HGB Conc 35.8 g/dL (31.5-36.5); Mean Corpuscular Volume 87 fL (80-100); Mean Platelet Volume 9.9 fL (9.1-12.4); NEUTROPHILS ABSOLUTE AUTO 5.78 K/mm3 (1.96-9.15); NEUTROPHILS PERCENT AUTO 67 % (41-73); Platelet Count 309 K/mm3 (150-400); RDW Coefficient Variation 11.9 % (11.7-14.2); RDW Standard Deviation 37.5 fL (35.1-46.3); Red Blood Cell Count 4.87 M/mm3 (3.80-5.20); White Blood Cell Count 8.65 K/mm3 (4.00-11.30)
[2024-02-02 09:35] LABS: Albumin, Blood 3.9 g/dL (3.4-5.0); Bilirubin, Total 0.7 mg/dL (0.1-1.0); Bun/Creatinine Ratio 23.3 (12.0-20.0); Calcium, Blood 9.8 mg/dL (8.5-10.1); Creatinine, Blood 0.69 mg/dL (0.40-1.00); Globulin, Blood 3.9 g/dL (2.2-4.0); Potassium, Blood 4.7 mmol/L (3.5-5.5); Total Protein, Blood 7.8 g/dL (6.4-8.2)
[2024-02-02] MEDS ORDERED: Ketorolac Tromethamine 30mg Vial IV ONE (09:35)
[2024-02-02] MEDS ORDERED: HYDROmorphone HCl/Pf 1MG SYR IV ONE (09:50)
[2024-02-02] MEDS ORDERED: Ondansetron HCl 2 MG / ML 2ML Vial IV ONE (09:50)
[2024-02-02 11:02] LABS: Source, Urine Clean Catch
[2024-02-02 11:16] LABS: Appearance, Urine Clear (Clear); Blood, Urine Neg (Neg); Color, Urine Yellow (P-Yellow); Glucose Qualitative, Urine Neg (Neg); Ketones, Urine 1+ (Neg); Leukocyte Esterase, Urine Neg (Neg); Nitrite, Urine Neg (Neg); Protein, Urine 2+ (Neg); Urobilinogen, Urine NORM (Normal)
[2024-02-02 11:33] LABS: Bilirubin, Urine 1+ (Neg)
[2024-02-02 11:35] LABS: Hyaline Casts 50-100 /lpf (0-2); Mucus Heavy (0-Heavy)
[2024-02-02 11:36] LABS: Bacteria Many /hpf; Red Blood Cells, Urine 0-2 /hpf (0-2); Squamous Epithelial Cells Many /hpf (Few); White Blood Cells, Urine 0-2 /hpf (0-5)
[2024-02-02 11:37] LABS: Amorphous Light (0-Heavy); Calcium Oxalate Crystals Rare /hpf
[2024-02-02] MEDS ORDERED: TRAM50 PO (12:27)
[2024-02-02] MEDS ORDERED: KETO10 PO (12:27)
[2024-02-02] MEDS ORDERED: ONDA4ODT MM (12:27)
[2024-02-02 12:30] VITALS: BP 101/73
== END 2024-02-02 12:35 | disposition home or self-care (01) ==
LOC: ER 07:40
PROVIDERS: Physician Assistant
DX: R10.2 Pelvic and perineal pain (principal); F17.290 Nicotine dependence, other tobacco product, uncomplicated; Z79.899 Other long term (current) drug therapy; Z88.8 Allergy status to other drugs, medicaments and biological substances
CPT/HCPCS: 76856; 80053; 81001; 81025; 85025; 87086; 96374; 96375; 99284-25; J1171; J1885; J2405

== ENCOUNTER 2024-02-14 01:49 | Emergency (ER) | payer OTHER ==
[~2024-02-14] VITALS: Ht 162.6 cm; Wt 58.1 kg
[~2024-02-14 01:49] MED LIST changes: +KETO10 PO; +TRAM50 PO
[2024-02-14] MEDS ORDERED: Ketorolac Tromethamine 30mg Vial IM ONE (02:05)
[2024-02-14] MEDS ORDERED: Amoxicillin 500 MG Cap PO ONE (02:50)
[2024-02-14] MEDS ORDERED: Prochlorperazine Edisylate 10 mg Vial IV ONE (03:35)
[2024-02-14] MEDS ORDERED: DiphenhydrAMINE HCl 50 MG/ML 1ML Vial IV ONE (03:35)
[2024-02-14] MEDS ORDERED: NS 1,000 ML IV SCH (03:35)
[2024-02-14] MEDS ORDERED: AMOX500 PO (03:37)
[2024-02-14] MEDS ORDERED: Acetaminophen 500 MG Tab PO ONE (03:40)
[2024-02-14 04:11] VITALS: BP 121/80
== END 2024-02-14 05:35 | disposition home or self-care (01) ==
LOC: ER 01:49
DX: G43.009 Migraine without aura, not intractable, without status migrainosus (principal); J02.0 Streptococcal pharyngitis; F17.290 Nicotine dependence, other tobacco product, uncomplicated; Z79.899 Other long term (current) drug therapy; Z88.8 Allergy status to other drugs, medicaments and biological substances
CPT/HCPCS: 87430; 96372-59; 96374; 96375; 99283-25; A9270; J0780; J1200; J1885; J7030

== ENCOUNTER 2024-03-03 12:14 | Emergency (ER) | payer OTHER ==
[~2024-03-03] VITALS: Ht 162.6 cm; Wt 59.0 kg
[2024-03-03 12:25] VITALS: BP 125/77
[2024-03-03 12:33] LABS: Source, Urine Clean Catch
[2024-03-03 12:51] LABS: BASOPHILS ABSOLUTE AUTO 0.04 K/mm3 (0.00-0.23); BASOPHILS PERCENT AUTO 0 % (0-2); EOSINOPHILS ABSOLUTE AUTO 0.05 K/mm3 (0.00-0.68); EOSINOPHILS PERCENT AUTO 1 % (0-6); Hematocrit 38.2 % (33.0-51.0); Hemoglobin 13.7 g/dL (11.5-16.0); IMMATURE GRAN ABSOLUTE AUTO 0.04 K/mm3 (0.00-0.10); IMMATURE GRAN PERCENT AUTO 0 % (0-1); LYMPHOCYTES ABSOLUTE AUTO 3.12 K/mm3 (0.84-5.20); LYMPHOCYTES PERCENT AUTO 33 % (21-46); MONOCYTES ABSOLUTE AUTO 0.69 K/mm3 (0.16-1.47); MONOCYTES PERCENT AUTO 7 % (4-13); Mean Corpuscular HGB 31.3 pg (26.0-34.0); Mean Corpuscular HGB Conc 35.9 g/dL (31.5-36.5); Mean Corpuscular Volume 87 fL (80-100); Mean Platelet Volume 9.8 fL (9.1-12.4); NEUTROPHILS ABSOLUTE AUTO 5.45 K/mm3 (1.96-9.15); NEUTROPHILS PERCENT AUTO 58 % (41-73); Platelet Count 408 K/mm3 (150-400); RDW Coefficient Variation 12.7 % (11.7-14.2); RDW Standard Deviation 39.9 fL (35.1-46.3); Red Blood Cell Count 4.38 M/mm3 (3.80-5.20); White Blood Cell Count 9.39 K/mm3 (4.00-11.30)
[2024-03-03 12:52] LABS: Appearance, Urine Clear (Clear); Bilirubin, Urine Neg (Neg); Blood, Urine Neg (Neg); Color, Urine Yellow (P-Yellow); Glucose Qualitative, Urine Neg (Neg); Ketones, Urine Neg (Neg); Leukocyte Esterase, Urine Neg (Neg); Nitrite, Urine Neg (Neg); Protein, Urine Neg (Neg); Specific Gravity, Urine 1.005 (1.003-1.022); Urobilinogen, Urine NORM (Normal)
[2024-03-03 13:12] LABS: Bilirubin, Total 0.4 mg/dL (0.1-1.0); Bun/Creatinine Ratio 29.6 (12.0-20.0); Calcium, Blood 8.9 mg/dL (8.5-10.1); Creatinine, Blood 0.41 mg/dL (0.40-1.00); Globulin, Blood 4.1 g/dL (2.2-4.0); Potassium, Blood 4.2 mmol/L (3.5-5.5); Total Protein, Blood 8.1 g/dL (6.4-8.2)
== END 2024-03-03 14:18 | disposition home or self-care (01) ==
LOC: ER 12:14
PROVIDERS: Physician Assistant
DX: O99.891 Other specified diseases and conditions complicating pregnancy (principal); R10.30 Lower abdominal pain, unspecified; R10.2 Pelvic and perineal pain; Z3A.01 Less than 8 weeks gestation of pregnancy; Z79.899 Other long term (current) drug therapy; Z88.8 Allergy status to other drugs, medicaments and biological substances
CPT/HCPCS: 76801; 76817; 80053; 81003; 84702; 85025; 99284-25

== ENCOUNTER 2024-03-15 08:29 | Emergency (ER) | payer OTHER ==
[~2024-03-15] VITALS: Ht 162.6 cm; Wt 57.6 kg
[2024-03-15 09:30] VITALS: BP 117/82
[2024-03-15 10:06] LABS: Source, Urine Clean Catch
[2024-03-15 10:12] LABS: Appearance, Urine Clear (Clear); BASOPHILS ABSOLUTE AUTO 0.05 K/mm3 (0.00-0.23); BASOPHILS PERCENT AUTO 0 % (0-2); Bilirubin, Urine Neg (Neg); Blood, Urine Neg (Neg); Color, Urine Yellow (P-Yellow); EOSINOPHILS ABSOLUTE AUTO 0.14 K/mm3 (0.00-0.68); EOSINOPHILS PERCENT AUTO 1 % (0-6); Glucose Qualitative, Urine Neg (Neg); Hematocrit 41.4 % (33.0-51.0); Hemoglobin 14.9 g/dL (11.5-16.0); IMMATURE GRAN ABSOLUTE AUTO 0.07 K/mm3 (0.00-0.10); IMMATURE GRAN PERCENT AUTO 1 % (0-1); Ketones, Urine Neg (Neg); LYMPHOCYTES ABSOLUTE AUTO 3.16 K/mm3 (0.84-5.20); LYMPHOCYTES PERCENT AUTO 25 % (21-46); Leukocyte Esterase, Urine Neg (Neg); MONOCYTES ABSOLUTE AUTO 0.97 K/mm3 (0.16-1.47); MONOCYTES PERCENT AUTO 8 % (4-13); Mean Corpuscular HGB 31.6 pg (26.0-34.0); Mean Corpuscular Volume 88 fL (80-100); Mean Platelet Volume 9.9 fL (9.1-12.4); NEUTROPHILS ABSOLUTE AUTO 8.11 K/mm3 (1.96-9.15); NEUTROPHILS PERCENT AUTO 65 % (41-73); Nitrite, Urine Neg (Neg); Platelet Count 256 K/mm3 (150-400); Protein, Urine Neg (Neg); RDW Coefficient Variation 13.1 % (11.7-14.2); RDW Standard Deviation 41.9 fL (35.1-46.3); Red Blood Cell Count 4.71 M/mm3 (3.80-5.20); Urobilinogen, Urine NORM (Normal)
[2024-03-15 10:40] LABS: Albumin, Blood 4.3 g/dL (3.4-5.0); Bilirubin, Total 0.5 mg/dL (0.1-1.0); Bun/Creatinine Ratio 18.4 (12.0-20.0); Calcium, Blood 10.5 mg/dL (8.5-10.1); Creatinine, Blood 0.54 mg/dL (0.40-1.00); Globulin, Blood 4.2 g/dL (2.2-4.0); Potassium, Blood 3.9 mmol/L (3.5-5.5); Total Protein, Blood 8.5 g/dL (6.4-8.2)
[2024-03-15] MEDS ORDERED: Percocet 5-3251 EACH PO (11:23)
== END 2024-03-15 11:15 | disposition home or self-care (01) ==
LOC: ER 08:29
PROVIDERS: Student in an Organized Health Care Education/Training Program
DX: O99.891 Other specified diseases and conditions complicating pregnancy (principal); R10.2 Pelvic and perineal pain; Z3A.01 Less than 8 weeks gestation of pregnancy; Z87.891 Personal history of nicotine dependence
CPT/HCPCS: 76801; 80053; 81003; 85025; 93005; 93010; 99284-25

== ENCOUNTER 2024-03-17 14:18 | Emergency (ER) | payer OTHER ==
[~2024-03-17] VITALS: Ht 162.6 cm; Wt 57.6 kg
[2024-03-17 14:27] VITALS: BP 110/85
[2024-03-17 15:10] LABS: BASOPHILS ABSOLUTE AUTO 0.05 K/mm3 (0.00-0.23); BASOPHILS PERCENT AUTO 0 % (0-2); EOSINOPHILS ABSOLUTE AUTO 0.17 K/mm3 (0.00-0.68); EOSINOPHILS PERCENT AUTO 2 % (0-6); Hematocrit 38.5 % (33.0-51.0); Hemoglobin 13.8 g/dL (11.5-16.0); IMMATURE GRAN ABSOLUTE AUTO 0.05 K/mm3 (0.00-0.10); IMMATURE GRAN PERCENT AUTO 0 % (0-1); LYMPHOCYTES ABSOLUTE AUTO 3.31 K/mm3 (0.84-5.20); LYMPHOCYTES PERCENT AUTO 29 % (21-46); MONOCYTES ABSOLUTE AUTO 0.74 K/mm3 (0.16-1.47); MONOCYTES PERCENT AUTO 6 % (4-13); Mean Corpuscular HGB 31.5 pg (26.0-34.0); Mean Corpuscular HGB Conc 35.8 g/dL (31.5-36.5); Mean Corpuscular Volume 88 fL (80-100); Mean Platelet Volume 9.9 fL (9.1-12.4); NEUTROPHILS ABSOLUTE AUTO 7.31 K/mm3 (1.96-9.15); NEUTROPHILS PERCENT AUTO 63 % (41-73); Platelet Count 223 K/mm3 (150-400); RDW Coefficient Variation 12.8 % (11.7-14.2); RDW Standard Deviation 41.5 fL (35.1-46.3); Red Blood Cell Count 4.38 M/mm3 (3.80-5.20); White Blood Cell Count 11.63 K/mm3 (4.00-11.30)
[2024-03-17 15:36] LABS: Free Thyroxine 1.45 ng/dL (0.70-1.60)
[2024-03-17 15:41] LABS: Albumin, Blood 3.7 g/dL (3.4-5.0); Bilirubin, Total 0.7 mg/dL (0.1-1.0); Bun/Creatinine Ratio 14.5 (12.0-20.0); Calcium, Blood 9.1 mg/dL (8.5-10.1); Creatinine, Blood 0.55 mg/dL (0.40-1.00); Globulin, Blood 3.7 g/dL (2.2-4.0); Potassium, Blood 3.7 mmol/L (3.5-5.5); Thyroid Stimulating Hormone 0.583 uIU/mL (0.360-4.800); Total Protein, Blood 7.4 g/dL (6.4-8.2)
== END 2024-03-17 16:48 | disposition left against medical advice (07) ==
LOC: ER 14:18
PROVIDERS: Student in an Organized Health Care Education/Training Program
DX: R20.0 Anesthesia of skin (principal); M25.512 Pain in left shoulder; R51.9 Headache, unspecified; R10.10 Upper abdominal pain, unspecified; Z53.21 Procedure and treatment not carried out due to patient leaving prior to being seen by health care provider
CPT/HCPCS: 80053; 84439; 84443; 85025; 93005; 93010; 99282-25

== ENCOUNTER 2024-03-19 16:25 | Emergency (ER) | payer OTHER ==
[~2024-03-19] VITALS: Ht 157.5 cm; Wt 57.6 kg
[2024-03-19 16:46] VITALS: BP 112/75
[2024-03-19 17:24] LABS: BASOPHILS ABSOLUTE AUTO 0.04 K/mm3 (0.00-0.23); BASOPHILS PERCENT AUTO 0 % (0-2); EOSINOPHILS ABSOLUTE AUTO 0.11 K/mm3 (0.00-0.68); EOSINOPHILS PERCENT AUTO 1 % (0-6); Hematocrit 39.4 % (33.0-51.0); Hemoglobin 14.4 g/dL (11.5-16.0); IMMATURE GRAN ABSOLUTE AUTO 0.04 K/mm3 (0.00-0.10); IMMATURE GRAN PERCENT AUTO 0 % (0-1); LYMPHOCYTES ABSOLUTE AUTO 3.16 K/mm3 (0.84-5.20); LYMPHOCYTES PERCENT AUTO 27 % (21-46); MONOCYTES ABSOLUTE AUTO 0.83 K/mm3 (0.16-1.47); MONOCYTES PERCENT AUTO 7 % (4-13); Mean Corpuscular HGB 31.8 pg (26.0-34.0); Mean Corpuscular HGB Conc 36.5 g/dL (31.5-36.5); Mean Corpuscular Volume 87 fL (80-100); Mean Platelet Volume 9.9 fL (9.1-12.4); NEUTROPHILS ABSOLUTE AUTO 7.51 K/mm3 (1.96-9.15); NEUTROPHILS PERCENT AUTO 64 % (41-73); Platelet Count 236 K/mm3 (150-400); Red Blood Cell Count 4.53 M/mm3 (3.80-5.20); White Blood Cell Count 11.69 K/mm3 (4.00-11.30)
[2024-03-19 17:42] LABS: Source, Urine Clean Catch
[2024-03-19 17:46] LABS: Appearance, Urine Clear (Clear); Bilirubin, Urine Neg (Neg); Blood, Urine Neg (Neg); Color, Urine Yellow (P-Yellow); Glucose Qualitative, Urine Neg (Neg); Ketones, Urine Neg (Neg); Leukocyte Esterase, Urine Neg (Neg); Nitrite, Urine Neg (Neg); Protein, Urine Neg (Neg); Urobilinogen, Urine NORM (Normal)
[2024-03-19 18:01] LABS: Albumin, Blood 3.9 g/dL (3.4-5.0); Bilirubin, Total 0.6 mg/dL (0.1-1.0); Bun/Creatinine Ratio 18.5 (12.0-20.0); Calcium, Blood 9.5 mg/dL (8.5-10.1); Creatinine, Blood 0.6 mg/dL (0.40-1.00); Globulin, Blood 3.9 g/dL (2.2-4.0); Potassium, Blood 3.6 mmol/L (3.5-5.5); Total Protein, Blood 7.8 g/dL (6.4-8.2)
== END 2024-03-19 20:50 | disposition left against medical advice (07) ==
LOC: ER 16:25
PROVIDERS: Student in an Organized Health Care Education/Training Program
DX: O99.891 Other specified diseases and conditions complicating pregnancy (principal); R10.9 Unspecified abdominal pain; Z3A.01 Less than 8 weeks gestation of pregnancy; Z53.21 Procedure and treatment not carried out due to patient leaving prior to being seen by health care provider
CPT/HCPCS: 76801; 80053; 81003; 84702; 85025; 86900; 86901

== ENCOUNTER 2024-04-02 09:16 | Day surgery (SDC) | payer OTHER ==
[2024-04-02] MEDS ORDERED: Lactated Ringer's 1,000 ML IV SCH (09:35)
[2024-04-02 09:59] VITALS: BP 104/70
[2024-04-02] MEDS ORDERED: PROG100 PO (10:00)
== END 2024-04-02 11:11 | disposition home or self-care (01) ==
LOC: ATC 09:16
DX: G90.A Postural orthostatic tachycardia syndrome [POTS] (principal); G90.1 Familial dysautonomia [Riley-Day]; F10.20 Alcohol dependence, uncomplicated; Z79.899 Other long term (current) drug therapy; Z88.5 Allergy status to narcotic agent; Z88.8 Allergy status to other drugs, medicaments and biological substances
CPT/HCPCS: 96360; J7120

== ENCOUNTER 2024-04-05 09:48 | Day surgery (SDC) | payer OTHER ==
[~2024-04-05 09:48] MED LIST changes: +Lactated Ringer's 1,000 ML IV SCH; +PROG100 PO
[2024-04-05 10:06] VITALS: BP 100/65
[2024-04-05] MEDS ORDERED: MACRODANTIN100 M1 PO (10:10)
== END 2024-04-05 11:04 | disposition home or self-care (01) ==
LOC: ATC 09:48
DX: G90.A Postural orthostatic tachycardia syndrome [POTS] (principal); G90.1 Familial dysautonomia [Riley-Day]; F10.20 Alcohol dependence, uncomplicated; G40.909 Epilepsy, unspecified, not intractable, without status epilepticus; Z79.899 Other long term (current) drug therapy; Z88.5 Allergy status to narcotic agent; Z88.8 Allergy status to other drugs, medicaments and biological substances
CPT/HCPCS: 96360; J7120

== ENCOUNTER 2024-04-06 06:46 | Emergency (ER) | payer OTHER ==
[~2024-04-06] VITALS: Ht 162.6 cm; Wt 57.6 kg
[~2024-04-06 06:46] MED LIST changes: -Lactated Ringer's 1,000 ML IV SCH; +MACRODANTIN100 M1 PO
[2024-04-06 07:02] VITALS: BP 103/73
== END 2024-04-06 07:30 | disposition home or self-care (01) ==
LOC: ER 06:46
DX: O99.891 Other specified diseases and conditions complicating pregnancy (principal); R10.32 Left lower quadrant pain; R11.0 Nausea; Z3A.10 10 weeks gestation of pregnancy; Z87.891 Personal history of nicotine dependence; Z79.899 Other long term (current) drug therapy
CPT/HCPCS: 99283

== ENCOUNTER 2024-04-07 04:05 | Emergency (ER) | payer OTHER ==
[~2024-04-07] VITALS: Ht 154.9 cm; Wt 54.4 kg
[2024-04-07 05:15] LABS: Source, Urine Clean Catch
[2024-04-07 05:23] LABS: Appearance, Urine Clear (Clear); Bilirubin, Urine Neg (Neg); Blood, Urine Neg (Neg); Color, Urine Yellow (P-Yellow); Glucose Qualitative, Urine Neg (Neg); Ketones, Urine Neg (Neg); Leukocyte Esterase, Urine Neg (Neg); Nitrite, Urine Neg (Neg); Protein, Urine Neg (Neg); Specific Gravity, Urine 1.025 (1.003-1.022); Urobilinogen, Urine NORM (Normal)
[2024-04-07] MEDS ORDERED: Acetaminophen 325 MG TABLET PO ONE (07:30)
[2024-04-07] MEDS ORDERED: Lactated Ringer's 1,000 ML IV ONE (07:30)
[2024-04-07] MEDS ORDERED: Ondansetron HCl 2 MG / ML 2ML Vial IV ONE (07:30)
[2024-04-07 08:25] LABS: Albumin, Blood 3.4 g/dL (3.4-5.0); Albumin/Globulin Ratio 0.9 (0.8-1.8); Bilirubin, Total 0.8 mg/dL (0.1-1.0); Bun/Creatinine Ratio 28.7 (12.0-20.0); Calcium, Blood 8.8 mg/dL (8.5-10.1); Creatinine, Blood 0.49 mg/dL (0.40-1.00); Globulin, Blood 3.6 g/dL (2.2-4.0); Potassium, Blood 3.8 mmol/L (3.5-5.5)
[2024-04-07 08:53] LABS: BASOPHILS ABSOLUTE AUTO 0.03 K/mm3 (0.00-0.23); BASOPHILS PERCENT AUTO 0 % (0-2); EOSINOPHILS ABSOLUTE AUTO 0.11 K/mm3 (0.00-0.68); EOSINOPHILS PERCENT AUTO 1 % (0-6); Hematocrit 34.8 % (33.0-51.0); Hemoglobin 12.5 g/dL (11.5-16.0); IMMATURE GRAN ABSOLUTE AUTO 0.03 K/mm3 (0.00-0.10); IMMATURE GRAN PERCENT AUTO 0 % (0-1); LYMPHOCYTES ABSOLUTE AUTO 2.54 K/mm3 (0.84-5.20); LYMPHOCYTES PERCENT AUTO 30 % (21-46); MONOCYTES PERCENT AUTO 6 % (4-13); Mean Corpuscular HGB 32.3 pg (26.0-34.0); Mean Corpuscular HGB Conc 35.9 g/dL (31.5-36.5); Mean Corpuscular Volume 90 fL (80-100); Mean Platelet Volume 9.7 fL (9.1-12.4); NEUTROPHILS ABSOLUTE AUTO 5.38 K/mm3 (1.96-9.15); NEUTROPHILS PERCENT AUTO 63 % (41-73); Platelet Count 226 K/mm3 (150-400); RDW Coefficient Variation 12.7 % (11.7-14.2); RDW Standard Deviation 41.4 fL (35.1-46.3); Red Blood Cell Count 3.87 M/mm3 (3.80-5.20); White Blood Cell Count 8.59 K/mm3 (4.00-11.30)
[2024-04-07 09:28] VITALS: BP 101/64
== END 2024-04-07 09:29 | disposition home or self-care (01) ==
LOC: ER 04:05
PROVIDERS: Emergency Medicine
DX: O26.891 Other specified pregnancy related conditions, first trimester (principal); R10.30 Lower abdominal pain, unspecified; Z3A.10 10 weeks gestation of pregnancy
CPT/HCPCS: 80053; 81003; 81025; 85025; 96374; 99284-25; A9270; J2405; J7120

== ENCOUNTER 2024-04-08 00:19 | Day surgery (SDC) | payer OTHER ==
[2024-04-08] MEDS ORDERED: Lactated Ringer's 1,000 ML IV SCH (07:05)
[2024-04-08 08:10] VITALS: BP 124/82
== END 2024-04-08 09:17 | disposition home or self-care (01) ==
LOC: ATC 00:19
DX: G90.A Postural orthostatic tachycardia syndrome [POTS] (principal); G90.1 Familial dysautonomia [Riley-Day]; Z88.8 Allergy status to other drugs, medicaments and biological substances
CPT/HCPCS: 96360; J7120

== ENCOUNTER → 2024-04-09 | Outpatient (CLI) | payer OTHER ==
[2024-04-11 11:58] LABS: APTIMA MEDIA TYPE Urine; C. TRACHOMATIS BY TMA Negative (Negative); N. GONORRHOEAE BY TMA Negative (Negative); SPECIMEN SOURCE Urine
== END ==
LOC: LAB 17:04 → LAB SHORT 17:04
PROVIDERS: Obstetrics & Gynecology
DX: Z34.81 Encounter for supervision of other normal pregnancy, first trimester (principal)
CPT/HCPCS: 87491; 87591

== ENCOUNTER 2024-04-11 15:05 | Emergency (ER) | payer OTHER ==
[~2024-04-11] VITALS: Ht 162.6 cm; Wt 58.1 kg
[2024-04-11 15:10] VITALS: BP 112/69
[2024-04-11 15:32] LABS: BASOPHILS ABSOLUTE AUTO 0.03 K/mm3 (0.00-0.23); BASOPHILS PERCENT AUTO 0 % (0-2); EOSINOPHILS ABSOLUTE AUTO 0.13 K/mm3 (0.00-0.68); EOSINOPHILS PERCENT AUTO 1 % (0-6); Hematocrit 34.2 % (33.0-51.0); Hemoglobin 12.5 g/dL (11.5-16.0); IMMATURE GRAN ABSOLUTE AUTO 0.02 K/mm3 (0.00-0.10); IMMATURE GRAN PERCENT AUTO 0 % (0-1); LYMPHOCYTES ABSOLUTE AUTO 2.66 K/mm3 (0.84-5.20); LYMPHOCYTES PERCENT AUTO 26 % (21-46); MONOCYTES ABSOLUTE AUTO 0.72 K/mm3 (0.16-1.47); MONOCYTES PERCENT AUTO 7 % (4-13); Mean Corpuscular HGB 32.1 pg (26.0-34.0); Mean Corpuscular HGB Conc 36.5 g/dL (31.5-36.5); Mean Corpuscular Volume 88 fL (80-100); Mean Platelet Volume 9.4 fL (9.1-12.4); NEUTROPHILS ABSOLUTE AUTO 6.69 K/mm3 (1.96-9.15); NEUTROPHILS PERCENT AUTO 65 % (41-73); Platelet Count 237 K/mm3 (150-400); RDW Coefficient Variation 12.3 % (11.7-14.2); RDW Standard Deviation 39.5 fL (35.1-46.3); White Blood Cell Count 10.25 K/mm3 (4.00-11.30)
[2024-04-11 16:16] LABS: Albumin, Blood 3.4 g/dL (3.4-5.0); Albumin/Globulin Ratio 0.9 (0.8-1.8); Bilirubin, Total 0.5 mg/dL (0.1-1.0); Bun/Creatinine Ratio 24.2 (12.0-20.0); Calcium, Blood 9.1 mg/dL (8.5-10.1); Creatinine, Blood 0.5 mg/dL (0.40-1.00); Globulin, Blood 3.7 g/dL (2.2-4.0); Potassium, Blood 3.7 mmol/L (3.5-5.5); Total Protein, Blood 7.1 g/dL (6.4-8.2)
== END 2024-04-11 17:32 | disposition left against medical advice (07) ==
LOC: ER 15:05
PROVIDERS: Emergency Medicine
DX: O20.9 Hemorrhage in early pregnancy, unspecified (principal); F17.290 Nicotine dependence, other tobacco product, uncomplicated; Z3A.11 11 weeks gestation of pregnancy; Z79.899 Other long term (current) drug therapy; Z88.5 Allergy status to narcotic agent; Z88.8 Allergy status to other drugs, medicaments and biological substances
CPT/HCPCS: 76801; 76817; 80053; 84702; 85025; 93005; 93010; 99284-25

== ENCOUNTER 2024-04-12 03:02 | Day surgery (SDC) | payer OTHER ==
[2024-04-12] MEDS ORDERED: Lactated Ringer's 1,000 ML IV SCH (06:55)
[2024-04-12 08:01] VITALS: BP 102/70
== END 2024-04-12 09:06 | disposition home or self-care (01) ==
LOC: ATC 03:02
DX: G90.A Postural orthostatic tachycardia syndrome [POTS] (principal); G90.1 Familial dysautonomia [Riley-Day]; Z88.5 Allergy status to narcotic agent; Z88.8 Allergy status to other drugs, medicaments and biological substances; Z79.899 Other long term (current) drug therapy
CPT/HCPCS: 96360; J7120

== ENCOUNTER 2024-04-14 02:06 | Day surgery (SDC) | payer OTHER ==
[2024-04-14] MEDS ORDERED: Lactated Ringer's 1,000 ML IV SCH (06:50)
[2024-04-14 08:06] VITALS: BP 122/76
== END 2024-04-14 09:22 | disposition home or self-care (01) ==
LOC: ATC 02:06
DX: G90.A Postural orthostatic tachycardia syndrome [POTS] (principal); G90.1 Familial dysautonomia [Riley-Day]
CPT/HCPCS: 96360; J7120

== ENCOUNTER 2024-04-17 02:10 | Day surgery (SDC) | payer OTHER ==
[2024-04-17] MEDS ORDERED: Lactated Ringer's 1,000 ML IV SCH (06:30)
[2024-04-17 08:18] VITALS: BP 100/67
== END 2024-04-17 09:29 | disposition home or self-care (01) ==
LOC: ATC 02:10
DX: G90.A Postural orthostatic tachycardia syndrome [POTS] (principal); G90.1 Familial dysautonomia [Riley-Day]; Z88.5 Allergy status to narcotic agent; Z88.8 Allergy status to other drugs, medicaments and biological substances; Z79.899 Other long term (current) drug therapy
CPT/HCPCS: 96360; J7120

== ENCOUNTER 2024-04-21 02:20 | Day surgery (SDC) | payer OTHER ==
[2024-04-21] MEDS ORDERED: Lactated Ringer's 1,000 ML IV SCH (06:55)
[2024-04-21 07:52] VITALS: BP 100/69
== END 2024-04-21 09:06 | disposition home or self-care (01) ==
LOC: ATC 02:20
DX: G90.A Postural orthostatic tachycardia syndrome [POTS] (principal); G90.1 Familial dysautonomia [Riley-Day]; Z88.8 Allergy status to other drugs, medicaments and biological substances; Z79.899 Other long term (current) drug therapy
CPT/HCPCS: 96360; J7120

== ENCOUNTER 2024-04-24 03:48 | Day surgery (SDC) | payer OTHER ==
[2024-04-24] MEDS ORDERED: Lactated Ringer's 1,000 ML IV ONE (07:20)
[2024-04-24] MEDS ORDERED: Lactated Ringer's 1,000 ML IV SCH (07:40)
[2024-04-24 10:00] VITALS: BP 104/76
== END 2024-04-24 11:12 | disposition home or self-care (01) ==
LOC: ATC 03:48
DX: O99.350 Diseases of the nervous system complicating pregnancy, unspecified trimester (principal); G90.A Postural orthostatic tachycardia syndrome [POTS]; G90.1 Familial dysautonomia [Riley-Day]; F17.290 Nicotine dependence, other tobacco product, uncomplicated; Z3A.00 Weeks of gestation of pregnancy not specified; Z88.5 Allergy status to narcotic agent; Z88.8 Allergy status to other drugs, medicaments and biological substances; Z79.899 Other long term (current) drug therapy
CPT/HCPCS: 96360; J7120

== ENCOUNTER 2024-05-01 01:08 | Day surgery (SDC) | payer OTHER ==
[2024-05-01] MEDS ORDERED: Lactated Ringer's 1,000 ML IV SCH (07:05)
[2024-05-01 09:57] VITALS: BP 108/72
== END 2024-05-01 11:15 | disposition home or self-care (01) ==
LOC: ATC 01:08
DX: O99.891 Other specified diseases and conditions complicating pregnancy (principal); G90.A Postural orthostatic tachycardia syndrome [POTS]; G90.1 Familial dysautonomia [Riley-Day]; Z3A.10 10 weeks gestation of pregnancy
CPT/HCPCS: 96360; J7120

== ENCOUNTER 2024-05-03 08:49 | Day surgery (SDC) | payer OTHER ==
[~2024-05-03 08:49] MED LIST changes: +Lactated Ringer's 1,000 ML IV SCH
[2024-05-03 08:58] VITALS: BP 93/64
== END 2024-05-03 10:12 | disposition home or self-care (01) ==
LOC: ATC 08:49
DX: O99.350 Diseases of the nervous system complicating pregnancy, unspecified trimester (principal); G90.A Postural orthostatic tachycardia syndrome [POTS]; G90.1 Familial dysautonomia [Riley-Day]; Z3A.00 Weeks of gestation of pregnancy not specified; Z87.891 Personal history of nicotine dependence; Z88.5 Allergy status to narcotic agent; Z88.8 Allergy status to other drugs, medicaments and biological substances; Z79.899 Other long term (current) drug therapy
CPT/HCPCS: 96360; J7120

== ENCOUNTER 2024-05-04 07:28 | Emergency (ER) | payer OTHER ==
[~2024-05-04] VITALS: Ht 162.6 cm; Wt 63.5 kg
[~2024-05-04 07:28] MED LIST changes: -Lactated Ringer's 1,000 ML IV SCH
[2024-05-04 07:45] VITALS: BP 100/68
== END 2024-05-04 10:42 | disposition home or self-care (01) ==
LOC: ER 07:28
DX: O99.352 Diseases of the nervous system complicating pregnancy, second trimester (principal); G40.909 Epilepsy, unspecified, not intractable, without status epilepticus; O99.332 Smoking (tobacco) complicating pregnancy, second trimester; F17.290 Nicotine dependence, other tobacco product, uncomplicated; Z3A.15 15 weeks gestation of pregnancy; Z88.5 Allergy status to narcotic agent; Z88.8 Allergy status to other drugs, medicaments and biological substances; Z79.899 Other long term (current) drug therapy
CPT/HCPCS: 76815; 99282-25

== ENCOUNTER 2024-05-11 03:02 | Day surgery (SDC) | payer OTHER ==
[2024-05-11] MEDS ORDERED: Lactated Ringer's 1,000 ML IV SCH (08:35)
[2024-05-11 11:02] VITALS: BP 102/61
== END 2024-05-11 12:05 | disposition home or self-care (01) ==
LOC: ATC 03:02
DX: O99.891 Other specified diseases and conditions complicating pregnancy (principal); G90.A Postural orthostatic tachycardia syndrome [POTS]; G90.1 Familial dysautonomia [Riley-Day]; Z3A.10 10 weeks gestation of pregnancy; Z88.8 Allergy status to other drugs, medicaments and biological substances; Z79.899 Other long term (current) drug therapy
CPT/HCPCS: 96360; J7120

== ENCOUNTER 2024-05-16 00:45 | Day surgery (SDC) | payer OTHER ==
[2024-05-16] MEDS ORDERED: Lactated Ringer's 1,000 ML IV SCH (06:55)
[2024-05-16 09:56] VITALS: BP 113/69
== END 2024-05-16 11:10 | disposition home or self-care (01) ==
LOC: ATC 00:45
DX: O26.891 Other specified pregnancy related conditions, first trimester (principal); G90.A Postural orthostatic tachycardia syndrome [POTS]; G90.1 Familial dysautonomia [Riley-Day]; Z3A.10 10 weeks gestation of pregnancy
CPT/HCPCS: 96360; J7120

== ENCOUNTER 2024-05-23 03:57 | Day surgery (SDC) | payer OTHER ==
[2024-05-23] MEDS ORDERED: Lactated Ringer's 1,000 ML IV SCH (06:35)
[2024-05-23 10:04] VITALS: BP 114/89
== END 2024-05-23 11:05 | disposition home or self-care (01) ==
LOC: ATC 03:57
DX: O99.411 Diseases of the circulatory system complicating pregnancy, first trimester (principal); G90.A Postural orthostatic tachycardia syndrome [POTS]; G90.1 Familial dysautonomia [Riley-Day]; Z3A.10 10 weeks gestation of pregnancy
CPT/HCPCS: 96360; J7120

== ENCOUNTER 2024-05-27 04:35 | Day surgery (SDC) | payer OTHER ==
[2024-05-27] MEDS ORDERED: Lactated Ringer's 1,000 ML IV SCH (07:15)
[2024-05-27 16:09] VITALS: BP 120/77
== END 2024-05-27 17:16 | disposition home or self-care (01) ==
LOC: ATC 04:35
DX: O99.411 Diseases of the circulatory system complicating pregnancy, first trimester (principal); G90.A Postural orthostatic tachycardia syndrome [POTS]; Z3A.10 10 weeks gestation of pregnancy
CPT/HCPCS: 96360; J7120

== ENCOUNTER 2024-06-01 00:31 | Day surgery (SDC) | payer OTHER ==
[2024-06-01] MEDS ORDERED: Lactated Ringer's 1,000 ML IV SCH (06:50)
[2024-06-01 07:40] VITALS: BP 99/66
== END 2024-06-01 08:36 | disposition home or self-care (01) ==
LOC: ATC 00:31
DX: O99.350 Diseases of the nervous system complicating pregnancy, unspecified trimester (principal); G90.1 Familial dysautonomia [Riley-Day]; G90.A Postural orthostatic tachycardia syndrome [POTS]; Z3A.00 Weeks of gestation of pregnancy not specified; Z87.891 Personal history of nicotine dependence; Z88.8 Allergy status to other drugs, medicaments and biological substances; Z88.5 Allergy status to narcotic agent; Z79.899 Other long term (current) drug therapy
CPT/HCPCS: 96360; J7120

== ENCOUNTER 2024-06-05 03:12 | Day surgery (SDC) | payer OTHER ==
[2024-06-05] MEDS ORDERED: Lactated Ringer's 1,000 ML IV SCH (06:55)
[2024-06-05 09:25] VITALS: BP 113/73
== END 2024-06-05 10:30 | disposition home or self-care (01) ==
LOC: ATC 03:12
DX: G90.A Postural orthostatic tachycardia syndrome [POTS] (principal); G90.1 Familial dysautonomia [Riley-Day]; G40.909 Epilepsy, unspecified, not intractable, without status epilepticus; F17.290 Nicotine dependence, other tobacco product, uncomplicated; Z88.8 Allergy status to other drugs, medicaments and biological substances; Z79.899 Other long term (current) drug therapy
CPT/HCPCS: 96360; J7120

== ENCOUNTER 2024-06-09 08:19 | Day surgery (SDC) | payer OTHER ==
[~2024-06-09 08:19] MED LIST changes: +Lactated Ringer's 1,000 ML IV SCH
[2024-06-09 09:14] VITALS: BP 104/75
== END 2024-06-09 10:20 | disposition home or self-care (01) ==
LOC: ATC 08:19
DX: O99.350 Diseases of the nervous system complicating pregnancy, unspecified trimester (principal); G90.A Postural orthostatic tachycardia syndrome [POTS]; G90.1 Familial dysautonomia [Riley-Day]; Z3A.00 Weeks of gestation of pregnancy not specified; G40.909 Epilepsy, unspecified, not intractable, without status epilepticus; O99.330 Smoking (tobacco) complicating pregnancy, unspecified trimester; F17.290 Nicotine dependence, other tobacco product, uncomplicated; Z88.8 Allergy status to other drugs, medicaments and biological substances; Z79.899 Other long term (current) drug therapy
CPT/HCPCS: 96360; J7120

== ENCOUNTER 2024-06-12 01:29 | Day surgery (SDC) | payer OTHER ==
[~2024-06-12 01:29] MED LIST changes: -Lactated Ringer's 1,000 ML IV SCH
[2024-06-12] MEDS ORDERED: Lactated Ringer's 1,000 ML IV SCH (06:55)
[2024-06-12 09:11] VITALS: BP 109/73
== END 2024-06-12 10:26 | disposition home or self-care (01) ==
LOC: ATC 01:29
DX: O99.350 Diseases of the nervous system complicating pregnancy, unspecified trimester (principal); G90.A Postural orthostatic tachycardia syndrome [POTS]; G90.1 Familial dysautonomia [Riley-Day]; G40.909 Epilepsy, unspecified, not intractable, without status epilepticus; Z3A.00 Weeks of gestation of pregnancy not specified; O99.330 Smoking (tobacco) complicating pregnancy, unspecified trimester; F17.290 Nicotine dependence, other tobacco product, uncomplicated; Z88.8 Allergy status to other drugs, medicaments and biological substances; Z79.899 Other long term (current) drug therapy
CPT/HCPCS: 96360; J7120

== ENCOUNTER 2024-06-19 01:24 | Day surgery (SDC) | payer OTHER ==
[2024-06-19] MEDS ORDERED: Lactated Ringer's 1,000 ML IV SCH (07:00)
[2024-06-19 15:20] VITALS: BP 100/77
== END 2024-06-19 16:22 | disposition home or self-care (01) ==
LOC: ATC 01:24
DX: O99.350 Diseases of the nervous system complicating pregnancy, unspecified trimester (principal); G90.A Postural orthostatic tachycardia syndrome [POTS]; G90.1 Familial dysautonomia [Riley-Day]; G40.909 Epilepsy, unspecified, not intractable, without status epilepticus; Z3A.00 Weeks of gestation of pregnancy not specified; Z88.8 Allergy status to other drugs, medicaments and biological substances; O99.330 Smoking (tobacco) complicating pregnancy, unspecified trimester; F17.290 Nicotine dependence, other tobacco product, uncomplicated; Z79.899 Other long term (current) drug therapy
CPT/HCPCS: 96360; J7120

== ENCOUNTER 2024-06-26 02:28 | Day surgery (SDC) | payer OTHER ==
[2024-06-26] MEDS ORDERED: Lactated Ringer's 1,000 ML IV SCH (06:50)
[2024-06-26 09:00] VITALS: BP 109/71
[2024-06-29] MEDS ORDERED: GABA100 PO (15:21)
== END 2024-06-26 10:10 | disposition home or self-care (01) ==
LOC: ATC 02:28
DX: G90.A Postural orthostatic tachycardia syndrome [POTS] (principal); G90.1 Familial dysautonomia [Riley-Day]
CPT/HCPCS: 96360; J7120

== ENCOUNTER 2024-07-03 01:54 | Day surgery (SDC) | payer OTHER ==
[~2024-07-03 01:54] MED LIST changes: +GABA100 PO
[2024-07-03] MEDS ORDERED: Lactated Ringer's 1,000 ML IV SCH (06:55)
[2024-07-03 15:10] VITALS: BP 86/55
== END 2024-07-03 16:25 | disposition home or self-care (01) ==
LOC: ATC 01:54
DX: O99.350 Diseases of the nervous system complicating pregnancy, unspecified trimester (principal); G90.A Postural orthostatic tachycardia syndrome [POTS]; G90.1 Familial dysautonomia [Riley-Day]; G40.909 Epilepsy, unspecified, not intractable, without status epilepticus; O99.330 Smoking (tobacco) complicating pregnancy, unspecified trimester; F17.290 Nicotine dependence, other tobacco product, uncomplicated; Z3A.00 Weeks of gestation of pregnancy not specified; Z88.8 Allergy status to other drugs, medicaments and biological substances; Z88.5 Allergy status to narcotic agent
CPT/HCPCS: 96360; J7120

== ENCOUNTER 2024-07-10 02:13 | Day surgery (SDC) | payer OTHER ==
[2024-07-10] MEDS ORDERED: Lactated Ringer's 1,000 ML IV SCH (06:50)
[2024-07-10 08:56] VITALS: BP 104/75
[2024-07-24] MEDS ORDERED: RABIES VACCINE IM (08:36)
== END 2024-07-10 10:12 | disposition home or self-care (01) ==
LOC: ATC 02:13
DX: O99.350 Diseases of the nervous system complicating pregnancy, unspecified trimester (principal); G90.A Postural orthostatic tachycardia syndrome [POTS]; G90.1 Familial dysautonomia [Riley-Day]; O09.529 Supervision of elderly multigravida, unspecified trimester; O99.330 Smoking (tobacco) complicating pregnancy, unspecified trimester; F17.290 Nicotine dependence, other tobacco product, uncomplicated; Z79.899 Other long term (current) drug therapy; Z88.5 Allergy status to narcotic agent; Z88.8 Allergy status to other drugs, medicaments and biological substances; Z3A.00 Weeks of gestation of pregnancy not specified
CPT/HCPCS: 96360; J7120

== ENCOUNTER 2024-07-10 19:08 | Emergency (ER) | payer OTHER ==
[~2024-07-10] VITALS: Ht 162.6 cm; Wt 64.1 kg
[2024-07-10 19:17] VITALS: BP 116/74
[2024-07-10] MEDS ORDERED: Rabies Immune Globulin 150 IU / ML 2ML Vial IM ONE (19:25)
[2024-07-10] MEDS ORDERED: Rabies Vaccine (Pcec)/Pf 1 mL 2.5 Unit Kit IM ONE (19:25)
[2024-07-10] MEDS ORDERED: Rabies Immune Globulin/Pf 300 Unit/ML 1ML Vial IM ONE (19:35)
[2024-07-24] MEDS ORDERED: RABIES VACCINE IM (08:36)
== END 2024-07-10 21:15 | disposition home or self-care (01) ==
LOC: ER 19:08
DX: O9A.212 Injury, poisoning and certain other consequences of external causes complicating pregnancy, second trimester (principal); S91.152A Open bite of left great toe without damage to nail, initial encounter; Z3A.24 24 weeks gestation of pregnancy; Z79.899 Other long term (current) drug therapy; Z88.8 Allergy status to other drugs, medicaments and biological substances; F17.290 Nicotine dependence, other tobacco product, uncomplicated; W55.81XA Bitten by other mammals, initial encounter
CPT/HCPCS: 90375; 90376; 90471; 99283-25

== ENCOUNTER 2024-07-13 08:42 | Emergency (ER) | payer OTHER ==
[~2024-07-13] VITALS: Ht 162.6 cm; Wt 63.5 kg
[2024-07-13 09:28] VITALS: BP 104/83
[2024-07-13] MEDS ORDERED: Rabies Vaccine (Pcec)/Pf 1 mL 2.5 Unit Kit IM ONE (09:30)
[2024-07-24] MEDS ORDERED: RABIES VACCINE IM (08:36)
== END 2024-07-13 10:35 | disposition home or self-care (01) ==
LOC: ER 08:42
DX: O9A.212 Injury, poisoning and certain other consequences of external causes complicating pregnancy, second trimester (principal); S91.15 Open bite of toe without damage to nail; W55.81XD Bitten by other mammals, subsequent encounter; Z23 Encounter for immunization; Z3A.24 24 weeks gestation of pregnancy; F17.200 Nicotine dependence, unspecified, uncomplicated; Z79.899 Other long term (current) drug therapy; Z88.5 Allergy status to narcotic agent; Z88.6 Allergy status to analgesic agent; Z88.8 Allergy status to other drugs, medicaments and biological substances
CPT/HCPCS: 90471; 99281

== ENCOUNTER 2024-07-17 07:57 | Emergency (ER) | payer OTHER ==
[~2024-07-17] VITALS: Ht 162.6 cm; Wt 63.5 kg
[2024-07-17 08:12] VITALS: BP 103/74
[2024-07-17] MEDS ORDERED: Rabies Vaccine (Pcec)/Pf 1 mL 2.5 Unit Kit IM ONE (08:15)
[2024-07-24] MEDS ORDERED: RABIES VACCINE IM (08:36)
== END 2024-07-17 08:44 | disposition home or self-care (01) ==
LOC: ER 07:57
DX: Z23 Encounter for immunization (principal); Z79.899 Other long term (current) drug therapy; F17.290 Nicotine dependence, other tobacco product, uncomplicated
CPT/HCPCS: 90471; 99281-25

== ENCOUNTER 2024-08-07 07:10 | Emergency (ER) | payer OTHER ==
[~2024-08-07] VITALS: Ht 162.6 cm; Wt 64.4 kg
[~2024-08-07 07:10] MED LIST changes: +RABIES VACCINE IM
[2024-08-07 07:28] VITALS: BP 108/80
[2024-08-07] MEDS ORDERED: Rabies Vaccine (Pcec)/Pf 1 mL 2.5 Unit Kit IM ONE (07:35)
== END 2024-08-07 08:10 | disposition home or self-care (01) ==
LOC: ER 07:10
DX: Z23 Encounter for immunization (principal); F17.290 Nicotine dependence, other tobacco product, uncomplicated; Z79.899 Other long term (current) drug therapy; Z88.5 Allergy status to narcotic agent; Z88.8 Allergy status to other drugs, medicaments and biological substances
CPT/HCPCS: 90471

== ENCOUNTER 2024-08-11 01:04 | Day surgery (SDC) | payer OTHER ==
[2024-08-11] MEDS ORDERED: Lactated Ringer's 1,000 ML IV SCH (06:55)
[2024-08-11 08:49] VITALS: BP 105/72
== END 2024-08-11 10:13 | disposition home or self-care (01) ==
LOC: ATC 01:04
DX: G90.A Postural orthostatic tachycardia syndrome [POTS] (principal)
CPT/HCPCS: 96360; J7120

== ENCOUNTER 2024-08-14 03:47 | Day surgery (SDC) | payer OTHER ==
[2024-08-14 09:11] VITALS: BP 104/80
== END 2024-08-14 10:20 | disposition home or self-care (01) ==
LOC: ATC 03:47
DX: G90.A Postural orthostatic tachycardia syndrome [POTS] (principal); G90.1 Familial dysautonomia [Riley-Day]; G40.909 Epilepsy, unspecified, not intractable, without status epilepticus; F17.290 Nicotine dependence, other tobacco product, uncomplicated; Z88.8 Allergy status to other drugs, medicaments and biological substances; Z79.899 Other long term (current) drug therapy
CPT/HCPCS: 96360; J7120

== ENCOUNTER 2024-08-21 01:35 | Day surgery (SDC) | payer OTHER ==
[2024-08-21 09:07] VITALS: BP 93/59
== END 2024-08-21 10:14 | disposition home or self-care (01) ==
LOC: ATC 01:35
DX: O99.350 Diseases of the nervous system complicating pregnancy, unspecified trimester (principal); G90.1 Familial dysautonomia [Riley-Day]; G90.A Postural orthostatic tachycardia syndrome [POTS]; G40.909 Epilepsy, unspecified, not intractable, without status epilepticus; O99.330 Smoking (tobacco) complicating pregnancy, unspecified trimester; F17.290 Nicotine dependence, other tobacco product, uncomplicated; Z3A.00 Weeks of gestation of pregnancy not specified; Z79.899 Other long term (current) drug therapy; Z88.5 Allergy status to narcotic agent; Z88.8 Allergy status to other drugs, medicaments and biological substances
CPT/HCPCS: 96360; J7120

== ENCOUNTER 2024-08-28 02:03 | Day surgery (SDC) | payer OTHER ==
[2024-08-28 08:55] VITALS: BP 98/61
== END 2024-08-28 10:05 | disposition home or self-care (01) ==
LOC: ATC 02:03
DX: O99.350 Diseases of the nervous system complicating pregnancy, unspecified trimester (principal); G90.A Postural orthostatic tachycardia syndrome [POTS]; G40.909 Epilepsy, unspecified, not intractable, without status epilepticus; Z3A.00 Weeks of gestation of pregnancy not specified; F17.290 Nicotine dependence, other tobacco product, uncomplicated; Z88.8 Allergy status to other drugs, medicaments and biological substances; Z79.899 Other long term (current) drug therapy
CPT/HCPCS: 96360; J7120

== ENCOUNTER 2024-09-04 03:13 | Day surgery (SDC) | payer OTHER ==
[2024-09-04 09:11] VITALS: BP 109/73
== END 2024-09-04 10:15 | disposition home or self-care (01) ==
LOC: ATC 03:13
DX: O99.350 Diseases of the nervous system complicating pregnancy, unspecified trimester (principal); G90.A Postural orthostatic tachycardia syndrome [POTS]; G90.1 Familial dysautonomia [Riley-Day]; G40.909 Epilepsy, unspecified, not intractable, without status epilepticus; Z3A.00 Weeks of gestation of pregnancy not specified; O99.330 Smoking (tobacco) complicating pregnancy, unspecified trimester; F17.290 Nicotine dependence, other tobacco product, uncomplicated; Z88.8 Allergy status to other drugs, medicaments and biological substances
CPT/HCPCS: 96360; J7120

== ENCOUNTER 2024-09-08 00:38 | Day surgery (SDC) | payer OTHER ==
[2024-09-08 08:34] VITALS: BP 108/58
== END 2024-09-08 09:33 | disposition home or self-care (01) ==
LOC: ATC 00:38
DX: O99.350 Diseases of the nervous system complicating pregnancy, unspecified trimester (principal); G90.A Postural orthostatic tachycardia syndrome [POTS]; G40.909 Epilepsy, unspecified, not intractable, without status epilepticus; Z3A.00 Weeks of gestation of pregnancy not specified; O99.330 Smoking (tobacco) complicating pregnancy, unspecified trimester; F17.290 Nicotine dependence, other tobacco product, uncomplicated; Z88.8 Allergy status to other drugs, medicaments and biological substances; Z79.899 Other long term (current) drug therapy
CPT/HCPCS: 96360; J7120

== ENCOUNTER 2024-09-11 04:43 | Day surgery (SDC) | payer OTHER ==
[2024-09-11 09:34] VITALS: BP 107/76
== END 2024-09-11 10:36 | disposition home or self-care (01) ==
LOC: ATC 04:43
DX: G90.A Postural orthostatic tachycardia syndrome [POTS] (principal); G90.1 Familial dysautonomia [Riley-Day]; F17.290 Nicotine dependence, other tobacco product, uncomplicated; Z79.899 Other long term (current) drug therapy; Z88.5 Allergy status to narcotic agent; Z88.8 Allergy status to other drugs, medicaments and biological substances
CPT/HCPCS: 96360; J7120

== ENCOUNTER 2024-09-15 00:35 | Day surgery (SDC) | payer OTHER ==
[2024-09-15 08:56] VITALS: BP 97/72
== END 2024-09-15 10:05 | disposition home or self-care (01) ==
LOC: ATC 00:35
DX: O99.350 Diseases of the nervous system complicating pregnancy, unspecified trimester (principal); G90.A Postural orthostatic tachycardia syndrome [POTS]; G90.1 Familial dysautonomia [Riley-Day]; G40.909 Epilepsy, unspecified, not intractable, without status epilepticus; O09.529 Supervision of elderly multigravida, unspecified trimester; O99.330 Smoking (tobacco) complicating pregnancy, unspecified trimester; F17.290 Nicotine dependence, other tobacco product, uncomplicated; Z3A.00 Weeks of gestation of pregnancy not specified; Z79.899 Other long term (current) drug therapy; Z88.5 Allergy status to narcotic agent; Z88.8 Allergy status to other drugs, medicaments and biological substances
CPT/HCPCS: 96360; J7120

== ENCOUNTER 2024-09-18 08:31 | Day surgery (SDC) | payer OTHER ==
[2024-09-18 08:46] VITALS: BP 120/77
== END 2024-09-18 09:54 | disposition home or self-care (01) ==
LOC: ATC 08:31
DX: O99.350 Diseases of the nervous system complicating pregnancy, unspecified trimester (principal); G90.A Postural orthostatic tachycardia syndrome [POTS]; G90.1 Familial dysautonomia [Riley-Day]; G40.909 Epilepsy, unspecified, not intractable, without status epilepticus; O09.529 Supervision of elderly multigravida, unspecified trimester; O99.330 Smoking (tobacco) complicating pregnancy, unspecified trimester; F17.290 Nicotine dependence, other tobacco product, uncomplicated; Z3A.00 Weeks of gestation of pregnancy not specified; Z79.899 Other long term (current) drug therapy; Z88.5 Allergy status to narcotic agent; Z88.8 Allergy status to other drugs, medicaments and biological substances
CPT/HCPCS: 96360; J7120

== ENCOUNTER 2024-09-22 00:15 | Day surgery (SDC) | payer OTHER ==
[2024-09-22 08:43] VITALS: BP 110/74
== END 2024-09-22 09:57 | disposition home or self-care (01) ==
LOC: ATC 00:15
DX: O99.891 Other specified diseases and conditions complicating pregnancy (principal); G90.A Postural orthostatic tachycardia syndrome [POTS]; F17.210 Nicotine dependence, cigarettes, uncomplicated; Z88.5 Allergy status to narcotic agent; Z88.8 Allergy status to other drugs, medicaments and biological substances; Z79.899 Other long term (current) drug therapy
CPT/HCPCS: 96360; J7120

== ENCOUNTER 2024-09-29 01:51 | Day surgery (SDC) | payer OTHER ==
[2024-09-29 08:25] VITALS: BP 103/63
== END 2024-09-29 09:40 | disposition home or self-care (01) ==
LOC: ATC 01:51
DX: O99.350 Diseases of the nervous system complicating pregnancy, unspecified trimester (principal); G90.A Postural orthostatic tachycardia syndrome [POTS]; G40.909 Epilepsy, unspecified, not intractable, without status epilepticus; O09.529 Supervision of elderly multigravida, unspecified trimester; O99.330 Smoking (tobacco) complicating pregnancy, unspecified trimester; F17.290 Nicotine dependence, other tobacco product, uncomplicated; Z3A.00 Weeks of gestation of pregnancy not specified; Z79.899 Other long term (current) drug therapy; Z88.5 Allergy status to narcotic agent; Z88.8 Allergy status to other drugs, medicaments and biological substances
CPT/HCPCS: 96360; J7120

== ENCOUNTER 2024-10-02 02:29 | Day surgery (SDC) | payer OTHER ==
[2024-10-02 08:37] VITALS: BP 95/68
== END 2024-10-02 09:50 | disposition home or self-care (01) ==
LOC: ATC 02:29
DX: O99.350 Diseases of the nervous system complicating pregnancy, unspecified trimester (principal); G90.A Postural orthostatic tachycardia syndrome [POTS]; G40.909 Epilepsy, unspecified, not intractable, without status epilepticus; O09.529 Supervision of elderly multigravida, unspecified trimester; O99.330 Smoking (tobacco) complicating pregnancy, unspecified trimester; F17.290 Nicotine dependence, other tobacco product, uncomplicated; Z3A.00 Weeks of gestation of pregnancy not specified; Z79.899 Other long term (current) drug therapy; Z88.5 Allergy status to narcotic agent; Z88.8 Allergy status to other drugs, medicaments and biological substances
CPT/HCPCS: 96360; J7120

== ENCOUNTER 2024-10-06 13:03 | Inpatient (IN) | payer OTHER ==
[2024-10-06] VITALS (17 sets, daily range): BP systolic 99–136; BP diastolic 63–85
[~2024-10-06] VITALS: Ht 162.6 cm; Wt 65.7 kg
[2024-10-06] MEDS ORDERED: Metoclopramide HCl 5MG / ML 2ML Vial IV SCH (13:30)
[2024-10-06] MEDS ORDERED: Citric Acid/Sodium Citrate 30 ML BTL PO SCH (13:30)
[2024-10-06] MEDS ORDERED: CeFAZolin Sodium 2,000 MG in NS 100 ML IV SCH (13:30)
[2024-10-06 14:07] LABS: BASOPHILS ABSOLUTE AUTO 0.03 K/mm3 (0.00-0.23); BASOPHILS PERCENT AUTO 0 % (0-2); EOSINOPHILS ABSOLUTE AUTO 0.03 K/mm3 (0.00-0.68); EOSINOPHILS PERCENT AUTO 0 % (0-6); Hematocrit 35.5 % (33.0-51.0); Hemoglobin 12.4 g/dL (11.5-16.0); IMMATURE GRAN ABSOLUTE AUTO 0.07 K/mm3 (0.00-0.10); IMMATURE GRAN PERCENT AUTO 1 % (0-1); LYMPHOCYTES ABSOLUTE AUTO 1.98 K/mm3 (0.84-5.20); LYMPHOCYTES PERCENT AUTO 19 % (21-46); MONOCYTES ABSOLUTE AUTO 0.64 K/mm3 (0.16-1.47); MONOCYTES PERCENT AUTO 6 % (4-13); Mean Corpuscular HGB Conc 34.9 g/dL (31.5-36.5); Mean Corpuscular Volume 92 fL (80-100); NEUTROPHILS ABSOLUTE AUTO 7.44 K/mm3 (1.96-9.15); NEUTROPHILS PERCENT AUTO 73 % (41-73); NRBC ABSOLUTE 0.00 K/mm3 (0.00-0.02); NRBC Auto 0.0 /100 WBC (0.0-0.2); Platelet Count 209 K/mm3 (150-400); RDW Coefficient Variation 12.6 % (11.7-14.2); RDW Standard Deviation 41.7 fL (35.1-46.3)
[2024-10-06 14:35] LABS: Alanine Aminotransfer (ALT/SGP 24.0 U/L (12-78); Albumin, Blood 3.1 g/dL (3.4-5.0); Albumin/Globulin Ratio 0.8 (0.8-1.8); Anion Gap 12.0 mmol/L (3-11); Aspartate Aminotrans (AST/SGOT 24.0 U/L (12-37); Bilirubin, Total 1.0 mg/dL (0.1-1.0); Blood Urea Nitrogen 7.0 mg/dL (8-24); CO2, Blood 21.0 mmol/L (21-32); Calcium, Blood 8.6 mg/dL (8.5-10.1); Chloride, Blood 107.0 mmol/L (98-108); Creatinine, Blood 0.45 mg/dL (0.40-1.00); Globulin, Blood 4.1 g/dL (2.2-4.0); Glucose, Blood 64.0 mg/dL (70-99); Potassium, Blood 4.0 mmol/L (3.5-5.5); Sodium, Blood 136.0 mmol/L (136-145); Total Protein, Blood 7.2 g/dL (6.4-8.2)
--- NOTE | 2024-10-06 15:39 | NUR ---
10/06/24 1539 Tavia Craig FHTS PRIOR TO START OF PROCEDURE WERE 145
[2024-10-06] MEDS ORDERED: ePHEDrine Sulfate 50 MG/ML 1ML Injection ONE (15:50)
[2024-10-06 16:03] LABS: PCO2 Cord - Arterial 45.9 mmHg (40-50); PO2 Cord - Arterial 17.7 mmHg (16-20); pH Cord - Arterial 7.32 (7.28-7.35)
[2024-10-06 16:04] LABS: pH Umbilical Cord - Venous 7.41 (7.26-7.35)
[2024-10-06 16:05] LABS: PCO2 Cord - Venous 33.2 mmHg (40-50); PO2 Cord - Venous 35.5 mmHg (28-32)
[2024-10-06] MEDS ORDERED: Ondansetron HCl 2 MG / ML 2ML Vial ONE (16:31)
[2024-10-06] MEDS ORDERED: Ketorolac Tromethamine 30mg Vial ONE (16:54)
--- NOTE | 2024-10-06 17:04 | NUR ---
HOLDING NB. DENIES PAIN AT THIS TIME. HAPPY AND VISITING WITH S/O, STEPH.
[2024-10-06] MEDS ORDERED: Ondansetron HCl 2 MG / ML 2ML Vial IV PRN (17:30)
[2024-10-06] MEDS ORDERED: OxyCODONE 5 mg/Acetamin 325 mg TABLET PO PRN (17:30)
[2024-10-06] MEDS ORDERED: Magnesium Hydroxide Conc 10 ML UDC PO PRN (17:30)
[2024-10-06] MEDS ORDERED: OXYTOCIN/RINGER'S LACTATE 500 ML IV SCH (17:30)
[2024-10-06] MEDS ORDERED: Methylergonovine Maleate 0.2MG / ML 1ML Amp IM PRN (17:35)
[2024-10-06] MEDS ORDERED: Morphine Sulfate 4 MG/1 ML Injection IV PRN (17:35)
[2024-10-06] MEDS ORDERED: Tranexamic Acid 100 ML IV PRN (18:00)
[2024-10-06] MEDS ORDERED: Ketorolac Tromethamine 30mg Vial IV SCH (18:00)
--- NOTE | 2024-10-06 18:25 | NUR ---
URINE TOX COLLECTED ON ADMIT, CALLED LAB PRIOR TO END OF SHIFT AND PROCESSESOR IN LAB SAID SHE DID NOT KNOW HOE TO PROCESS SPECIMEN AND WAS AWAITING ANOTHER WAREHOUSE ORDER FILLER TO PROCESS. UTOC STILL NOT COMPLETE
[2024-10-06 18:46] LABS: U Amphetamine Screen Not Detected; U Barbituate Screen Not Detected; U Benzodiazapine Screen DETECTED; U Buprenorphine Screen Not Detected; U Cannabinoids Screen Not Detected; U Cocaine Screen Not Detected; U Methadone Screen Not Detected; U Methamphetamine Screen Not Detected; U Opiates Screen Not Detected; U Oxycodone Screen Not Detected; U Phencyclidine Screen Not Detected
[2024-10-06] MEDS ORDERED: Methylergonovine Maleate 0.2MG / ML 1ML Amp IM ONE (18:59)
[2024-10-07] VITALS (8 sets, daily range): BP systolic 83–104; BP diastolic 49–61
--- NOTE | 2024-10-07 01:22 | NUR ---
Assumed care at change of shift, patient reports pain is not well controlled, requesting breakthrough meds and heating pad, medicated as ordered and documented in EMAR. Patient reports excited to get up and get catheter out, made plan to medicate at 2300 and then get up to bathroom and remove catheter if indicated. Patient agrees with plan of care. Shi removed at 2330, no void at this time. Patient declined shower, desires to wait until morning. Linen change complete. Patient requested this RN watch to get a short nap after 0000 feed. Resting in bed at this time.
--- NOTE | 2024-10-07 06:19 | NUR ---
Patient has required several doses of IV morphine for breakthrough pain this shift. Patient calls to request morphine at 0600 because she wants to take a shower. Patient reports her pain was never this bad with previous c-sections and she feels it is related to the amount of scar tissue that was removed during procedure. Spoke with patient about pain management and current coverage, explained that it would be reasonable to transition to oral pain management solutions soon and if the oral medication isnt providing enough relief potentially involving the provider in a conversation about pain control. Patient has reported pain of a 7-10 this shift. Spoke with patient about reasonable expectations for pain in the immediate post operative period. Patient verbalizes understanding and agrees with plan of care.
--- NOTE | 2024-10-07 08:18 | NUR ---
0730: up and s.o. up ambulating in the halls. pt reports she is tolerating this fine. 0815: discussed plan of pain management today. pt reports she feels like as long as we do the oral pain rx when scheduled that she will be able to michael pain without iv pain rx.
[2024-10-07 08:40] LABS: BASOPHILS ABSOLUTE AUTO 0.03 K/mm3 (0.00-0.23); BASOPHILS PERCENT AUTO 0 % (0-2); EOSINOPHILS ABSOLUTE AUTO 0.29 K/mm3 (0.00-0.68); EOSINOPHILS PERCENT AUTO 2 % (0-6); Hematocrit 30.6 % (33.0-51.0); Hemoglobin 10.8 g/dL (11.5-16.0); IMMATURE GRAN ABSOLUTE AUTO 0.08 K/mm3 (0.00-0.10); IMMATURE GRAN PERCENT AUTO 1 % (0-1); LYMPHOCYTES ABSOLUTE AUTO 1.76 K/mm3 (0.84-5.20); LYMPHOCYTES PERCENT AUTO 14 % (21-46); MONOCYTES ABSOLUTE AUTO 0.87 K/mm3 (0.16-1.47); MONOCYTES PERCENT AUTO 7 % (4-13); Mean Corpuscular HGB Conc 35.3 g/dL (31.5-36.5); Mean Corpuscular Volume 91 fL (80-100); NEUTROPHILS ABSOLUTE AUTO 9.96 K/mm3 (1.96-9.15); NEUTROPHILS PERCENT AUTO 77 % (41-73); NRBC ABSOLUTE 0.00 K/mm3 (0.00-0.02); NRBC Auto 0.0 /100 WBC (0.0-0.2); Platelet Count 184 K/mm3 (150-400); RDW Coefficient Variation 12.5 % (11.7-14.2); RDW Standard Deviation 41.1 fL (35.1-46.3)
[2024-10-07] MEDS ORDERED: Cholecalciferol 1000 Unit Tablet (=25MCG) PO SCH (09:00)
[2024-10-07] MEDS ORDERED: Folic Acid 1 MG TAB PO SCH (09:00)
--- NOTE | 2024-10-07 11:25 | NUR ---
PT SITTING UP AT SIDE OF THE BED, TALKING ON PHONE. REPORTS PAIN 7/10 BUT STATES THE PAIN IS COMING DOWN AND SHE IS WILLIAM WELL.
--- NOTE | 2024-10-07 15:36 | NUR ---
REPORTS PAIN STILL 08/21. UP AMBULATING IN THE [facility] TO NURSERY WITH [facility]. PT REPORTS SHE IS DOING OK WITH PAIN AT THIS TIME.
--- NOTE | 2024-10-07 18:09 | NUR ---
AMBULATING IN HALLS TO NURSERY PATIENCE [place]. WILLIAM GODINEZ
--- NOTE | 2024-10-07 21:23 | NUR ---
Assumed care at change of shift, patient sitting at edge of bed at this time, reports she recently fed and is still feeling uncomfortable at this time which she relates to increase abdominal cramping as is more successful at today. Discussed plan of care for this shift, patient verbalizes understanding and agrees with plan of care. At 2100 entered room with scheduled medicaiton patient was sleeping soundly, partner woke patient with touch to awake for medication administration. RN offered not to wake in the future, patient reports she would like to be woken up for meds at 2300 because she believes if she does not have the pain medication when it is next available she will wake up in severe pain.
[2024-10-08 03:11] VITALS: BP 99/53
--- NOTE | 2024-10-08 06:38 | NUR ---
Patient continues to report high levels of pain this shift, but states its mostly tolerable, feels as though the percocet wears off before it is time for another dose. Patient is attending to ADLS and needs of the with ease. Patient and partner were able to get some sleep this shift and are looking forward to going home today.
--- NOTE | 2024-10-08 09:53 | NUR ---
PT DISCHARGED TO HOME. DISCHARGE INSTRUCTIONS GIVEN. NO QUESTIONS OR CONCERNS AT THIS TIME.
== END 2024-10-08 09:33 | disposition home or self-care (01) | DRG 787 ==
LOC: BC 13:03
PROVIDERS: ADMIT Obstetrics & Gynecology
PROC: 10D00Z1 Extraction of Products of Conception, Low, Open Approach (ICD-10-PCS; principal; 2024-10-06 15:00)
DX: O34.211 Maternal care for low transverse scar from previous cesarean delivery (principal); O99.354 Diseases of the nervous system complicating childbirth; O09.43 Supervision of pregnancy with grand multiparity, third trimester; G40.909 Epilepsy, unspecified, not intractable, without status epilepticus; Z3A.37 37 weeks gestation of pregnancy; Z37.0 Single live birth; G90.A Postural orthostatic tachycardia syndrome [POTS]
CPT/HCPCS: 36415; 80053; 82803; 85025; 86850; 86900; 86901; 86923; A9270; J0690; J1885; J2210; J2270; J2405; J7120

== ENCOUNTER 2024-10-09 03:28 | Day surgery (SDC) | payer OTHER ==
[2024-10-09 09:09] VITALS: BP 98/63
== END 2024-10-09 10:18 | disposition home or self-care (01) ==
LOC: ATC 03:28
DX: G90.A Postural orthostatic tachycardia syndrome [POTS] (principal); G40.909 Epilepsy, unspecified, not intractable, without status epilepticus; F17.290 Nicotine dependence, other tobacco product, uncomplicated; Z88.8 Allergy status to other drugs, medicaments and biological substances; Z79.899 Other long term (current) drug therapy
CPT/HCPCS: 96360; J7120

== ENCOUNTER 2024-10-27 02:26 | Day surgery (SDC) | payer OTHER ==
[2024-10-27 08:50] VITALS: BP 101/82
== END 2024-10-27 10:08 | disposition home or self-care (01) ==
LOC: ATC 02:26
DX: G90.A Postural orthostatic tachycardia syndrome [POTS] (principal); G40.909 Epilepsy, unspecified, not intractable, without status epilepticus; F17.290 Nicotine dependence, other tobacco product, uncomplicated; Z79.899 Other long term (current) drug therapy; Z88.8 Allergy status to other drugs, medicaments and biological substances
CPT/HCPCS: J7120

== ENCOUNTER 2024-10-30 00:10 | Day surgery (SDC) | payer OTHER ==
[2024-10-30 08:55] VITALS: BP 102/72
== END 2024-10-30 10:14 | disposition home or self-care (01) ==
LOC: ATC 00:10
DX: G90.A Postural orthostatic tachycardia syndrome [POTS] (principal); G40.909 Epilepsy, unspecified, not intractable, without status epilepticus; F17.290 Nicotine dependence, other tobacco product, uncomplicated; Z79.899 Other long term (current) drug therapy; Z88.5 Allergy status to narcotic agent; Z88.8 Allergy status to other drugs, medicaments and biological substances
CPT/HCPCS: 96360; J7120

== ENCOUNTER 2024-11-03 00:50 | Day surgery (SDC) | payer OTHER ==
[2024-11-03 08:42] VITALS: BP 116/74
== END 2024-11-03 09:51 | disposition home or self-care (01) ==
LOC: ATC 00:50
DX: G90.A Postural orthostatic tachycardia syndrome [POTS] (principal); F17.290 Nicotine dependence, other tobacco product, uncomplicated; Z88.8 Allergy status to other drugs, medicaments and biological substances; Z88.5 Allergy status to narcotic agent; Z79.899 Other long term (current) drug therapy
CPT/HCPCS: 96360; J7120

== ENCOUNTER 2024-11-06 02:09 | Day surgery (SDC) | payer OTHER ==
[2024-11-06 10:21] VITALS: BP 119/84
== END 2024-11-06 11:32 | disposition home or self-care (01) ==
LOC: ATC 02:09
DX: G90.A Postural orthostatic tachycardia syndrome [POTS] (principal); F17.290 Nicotine dependence, other tobacco product, uncomplicated; Z88.5 Allergy status to narcotic agent; Z88.8 Allergy status to other drugs, medicaments and biological substances; Z79.899 Other long term (current) drug therapy
CPT/HCPCS: 96360; J7120

== ENCOUNTER 2024-11-10 01:06 | Day surgery (SDC) | payer OTHER ==
[2024-11-10 08:43] VITALS: BP 102/71
== END 2024-11-10 09:52 | disposition home or self-care (01) ==
LOC: ATC 01:06
DX: G90.A Postural orthostatic tachycardia syndrome [POTS] (principal); G40.909 Epilepsy, unspecified, not intractable, without status epilepticus; F17.290 Nicotine dependence, other tobacco product, uncomplicated; Z88.8 Allergy status to other drugs, medicaments and biological substances; Z79.899 Other long term (current) drug therapy
CPT/HCPCS: 96360; J7120

== ENCOUNTER 2024-11-13 00:44 | Day surgery (SDC) | payer OTHER ==
[2024-11-13 10:16] VITALS: BP 103/65; BP 109/51
== END 2024-11-13 10:01 | disposition home or self-care (01) ==
LOC: ATC 00:44
DX: G90.A Postural orthostatic tachycardia syndrome [POTS] (principal); G40.909 Epilepsy, unspecified, not intractable, without status epilepticus; F17.290 Nicotine dependence, other tobacco product, uncomplicated; Z79.899 Other long term (current) drug therapy; Z88.8 Allergy status to other drugs, medicaments and biological substances
CPT/HCPCS: 96360; J7120

== ENCOUNTER 2024-11-24 00:09 | Day surgery (SDC) | payer OTHER ==
[2024-11-24 09:02] VITALS: BP 105/81
== END 2024-11-24 09:58 | disposition home or self-care (01) ==
LOC: ATC 00:09
DX: G90.A Postural orthostatic tachycardia syndrome [POTS] (principal); G40.909 Epilepsy, unspecified, not intractable, without status epilepticus; F17.290 Nicotine dependence, other tobacco product, uncomplicated; Z88.8 Allergy status to other drugs, medicaments and biological substances; Z79.899 Other long term (current) drug therapy
CPT/HCPCS: 96360; J7120

== ENCOUNTER 2024-11-27 03:13 | Day surgery (SDC) | payer OTHER ==
[2024-11-27 09:24] VITALS: BP 101/76
== END 2024-11-27 10:39 | disposition home or self-care (01) ==
LOC: ATC 03:13
DX: G90.A Postural orthostatic tachycardia syndrome [POTS] (principal); G40.909 Epilepsy, unspecified, not intractable, without status epilepticus; I45.6 Pre-excitation syndrome; G43.909 Migraine, unspecified, not intractable, without status migrainosus; F17.290 Nicotine dependence, other tobacco product, uncomplicated; Z79.899 Other long term (current) drug therapy; Z88.5 Allergy status to narcotic agent; Z88.8 Allergy status to other drugs, medicaments and biological substances
CPT/HCPCS: 96360; J7120

== ENCOUNTER 2024-12-01 03:54 | Day surgery (SDC) | payer OTHER ==
[2024-12-01 09:01] VITALS: BP 104/61
== END 2024-12-01 10:06 | disposition home or self-care (01) ==
LOC: ATC 03:54
DX: G90.A Postural orthostatic tachycardia syndrome [POTS] (principal); F17.290 Nicotine dependence, other tobacco product, uncomplicated; Z88.8 Allergy status to other drugs, medicaments and biological substances
CPT/HCPCS: 96360; J7120

== ENCOUNTER 2024-12-04 00:04 | Day surgery (SDC) | payer OTHER ==
[2024-12-04 09:20] VITALS: BP 124/85
== END 2024-12-04 10:42 | disposition home or self-care (01) ==
LOC: ATC 00:04
DX: G90.A Postural orthostatic tachycardia syndrome [POTS] (principal); G90.1 Familial dysautonomia [Riley-Day]; G40.909 Epilepsy, unspecified, not intractable, without status epilepticus; F17.290 Nicotine dependence, other tobacco product, uncomplicated; Z88.5 Allergy status to narcotic agent; Z88.8 Allergy status to other drugs, medicaments and biological substances; Z79.899 Other long term (current) drug therapy
CPT/HCPCS: 96360; J7120

== ENCOUNTER 2024-12-08 01:30 | Day surgery (SDC) | payer OTHER ==
[2024-12-08 14:15] VITALS: BP 99/67
== END 2024-12-08 15:29 | disposition home or self-care (01) ==
LOC: ATC 01:30
DX: G90.A Postural orthostatic tachycardia syndrome [POTS] (principal); G90.1 Familial dysautonomia [Riley-Day]; F10.20 Alcohol dependence, uncomplicated; F17.290 Nicotine dependence, other tobacco product, uncomplicated; Z88.5 Allergy status to narcotic agent; Z88.8 Allergy status to other drugs, medicaments and biological substances; Z79.899 Other long term (current) drug therapy
CPT/HCPCS: 96360; J7120

== ENCOUNTER 2024-12-11 08:56 | Day surgery (SDC) | payer OTHER ==
[2024-12-11 09:03] VITALS: BP 110/73
== END 2024-12-11 10:13 | disposition home or self-care (01) ==
LOC: ATC 08:56
DX: G90.A Postural orthostatic tachycardia syndrome [POTS] (principal); D49.7 Neoplasm of unspecified behavior of endocrine glands and other parts of nervous system; G40.909 Epilepsy, unspecified, not intractable, without status epilepticus; F10.20 Alcohol dependence, uncomplicated; I45.6 Pre-excitation syndrome; F17.290 Nicotine dependence, other tobacco product, uncomplicated; Z79.899 Other long term (current) drug therapy; Z88.5 Allergy status to narcotic agent; Z88.8 Allergy status to other drugs, medicaments and biological substances
CPT/HCPCS: 96365; 99211; J7120

== ENCOUNTER 2024-12-15 00:59 | Day surgery (SDC) | payer OTHER ==
[2024-12-15 08:42] VITALS: BP 111/76
== END 2024-12-15 09:59 | disposition home or self-care (01) ==
LOC: ATC 00:59
DX: G90.A Postural orthostatic tachycardia syndrome [POTS] (principal); Z88.8 Allergy status to other drugs, medicaments and biological substances; Z87.891 Personal history of nicotine dependence
CPT/HCPCS: 96360; J7120

== ENCOUNTER 2024-12-22 00:37 | Day surgery (SDC) | payer OTHER ==
[2024-12-22 09:05] VITALS: BP 101/72
== END 2024-12-22 10:10 | disposition home or self-care (01) ==
LOC: ATC 00:37
DX: G90.A Postural orthostatic tachycardia syndrome [POTS] (principal); G40.909 Epilepsy, unspecified, not intractable, without status epilepticus; G43.909 Migraine, unspecified, not intractable, without status migrainosus; F17.290 Nicotine dependence, other tobacco product, uncomplicated; Z88.5 Allergy status to narcotic agent; Z88.8 Allergy status to other drugs, medicaments and biological substances; Z79.899 Other long term (current) drug therapy
CPT/HCPCS: 96360; J7120

== ENCOUNTER 2024-12-25 00:52 | Day surgery (SDC) | payer OTHER ==
[2024-12-25 09:05] VITALS: BP 107/68
== END 2024-12-25 10:35 | disposition home or self-care (01) ==
LOC: ATC 00:52
DX: G90.A Postural orthostatic tachycardia syndrome [POTS] (principal); G40.909 Epilepsy, unspecified, not intractable, without status epilepticus; G43.909 Migraine, unspecified, not intractable, without status migrainosus; F17.290 Nicotine dependence, other tobacco product, uncomplicated; Z79.899 Other long term (current) drug therapy; Z88.5 Allergy status to narcotic agent; Z88.8 Allergy status to other drugs, medicaments and biological substances
CPT/HCPCS: 96360; 99211; J7120

== ENCOUNTER 2024-12-29 00:32 | Day surgery (SDC) | payer OTHER ==
[2024-12-29 09:12] VITALS: BP 102/77
== END 2024-12-29 10:17 | disposition home or self-care (01) ==
LOC: ATC 00:32
DX: G90.A Postural orthostatic tachycardia syndrome [POTS] (principal); G40.909 Epilepsy, unspecified, not intractable, without status epilepticus; F17.290 Nicotine dependence, other tobacco product, uncomplicated; Z79.899 Other long term (current) drug therapy; Z88.5 Allergy status to narcotic agent; Z88.8 Allergy status to other drugs, medicaments and biological substances
CPT/HCPCS: 96360; J7120

== ENCOUNTER 2025-01-01 00:43 | Day surgery (SDC) | payer OTHER ==
[2025-01-01 08:47] VITALS: BP 105/71
== END 2025-01-01 09:56 | disposition home or self-care (01) ==
LOC: ATC 00:43
DX: G90.A Postural orthostatic tachycardia syndrome [POTS] (principal); F17.290 Nicotine dependence, other tobacco product, uncomplicated; Z88.8 Allergy status to other drugs, medicaments and biological substances
CPT/HCPCS: 96365; 99211; J7120

== ENCOUNTER 2025-01-05 00:13 | Day surgery (SDC) | payer OTHER ==
[2025-01-05 08:40] VITALS: BP 102/69
== END 2025-01-05 09:48 | disposition home or self-care (01) ==
LOC: ATC 00:13
DX: G90.A Postural orthostatic tachycardia syndrome [POTS] (principal); G40.909 Epilepsy, unspecified, not intractable, without status epilepticus; G43.909 Migraine, unspecified, not intractable, without status migrainosus; F17.290 Nicotine dependence, other tobacco product, uncomplicated; Z79.899 Other long term (current) drug therapy; Z88.5 Allergy status to narcotic agent; Z88.8 Allergy status to other drugs, medicaments and biological substances
CPT/HCPCS: 96360; J7120

== ENCOUNTER 2025-01-12 02:31 | Day surgery (SDC) | payer OTHER ==
[2025-01-12 08:42] VITALS: BP 110/76
== END 2025-01-12 09:51 | disposition home or self-care (01) ==
LOC: ATC 02:31
DX: G90.A Postural orthostatic tachycardia syndrome [POTS] (principal); G40.909 Epilepsy, unspecified, not intractable, without status epilepticus; F17.290 Nicotine dependence, other tobacco product, uncomplicated; F43.22 Adjustment disorder with anxiety; Z88.5 Allergy status to narcotic agent; Z88.8 Allergy status to other drugs, medicaments and biological substances; Z79.899 Other long term (current) drug therapy
CPT/HCPCS: 96360; J7120

== ENCOUNTER 2025-01-22 03:35 | Day surgery (SDC) | payer OTHER ==
[2025-01-22 08:40] VITALS: BP 106/63
== END 2025-01-22 09:59 | disposition home or self-care (01) ==
LOC: ATC 03:35
DX: G90.A Postural orthostatic tachycardia syndrome [POTS] (principal); G40.909 Epilepsy, unspecified, not intractable, without status epilepticus; I45.6 Pre-excitation syndrome; F17.290 Nicotine dependence, other tobacco product, uncomplicated; Z79.899 Other long term (current) drug therapy; Z88.5 Allergy status to narcotic agent; Z88.8 Allergy status to other drugs, medicaments and biological substances
CPT/HCPCS: 96360; J7120

== ENCOUNTER 2025-02-02 00:23 | Day surgery (SDC) | payer OTHER ==
[2025-02-02 08:37] VITALS: BP 112/82
== END 2025-02-02 09:46 | disposition home or self-care (01) ==
LOC: ATC 00:23
DX: G90.A Postural orthostatic tachycardia syndrome [POTS] (principal); F17.290 Nicotine dependence, other tobacco product, uncomplicated; Z88.8 Allergy status to other drugs, medicaments and biological substances
CPT/HCPCS: 96360; J7120

== ENCOUNTER 2025-02-09 08:53 | Day surgery (SDC) | payer OTHER ==
[2025-02-09 09:18] VITALS: BP 101/76
[2025-02-16] MEDS ORDERED: MIDO5 PO (09:17)
== END 2025-02-09 10:19 | disposition home or self-care (01) ==
LOC: ATC 08:53
DX: G90.A Postural orthostatic tachycardia syndrome [POTS] (principal); F17.290 Nicotine dependence, other tobacco product, uncomplicated; Z88.8 Allergy status to other drugs, medicaments and biological substances
CPT/HCPCS: 96360; J7120